=== PATIENT | female | born 1955 | race Caucasian/White ===

== ENCOUNTER 2017-02-04 11:20 | Emergency (ER) | payer MEDICARE, OTHER ==
--- NOTE | 2017-02-04 12:07 | ED ---
Abdominal Pain HPI - General Chief Complaint: Abdominal Pain Stated Complaint: Infection Time Seen by Provider: 02/04/17 11:24 Source: patient, EMS Mode of arrival: EMS Limitations: no limitations - History of Present Illness Initial Comments: The patient was sent in by Dr. Vincent patient had abdominal surgery at [address] [place] [address] Snider advised me to send the patient back to [place] she has some tenderness in home mom staff noticed some GI secretions coming out of her food back. Patient herself has no complaints at all no fever no chills no abdominal pain no headaches no neck stiffness no shortness of breath no diarrhea constipation frequency urgency dysuria no TIA or CVA like symptoms - Related Data Home Medications Medication Instructions Recorded Confirmed ALPRAZolam [Xanax] 0.25 mg PO Q8H PRN 02/04/17 02/04/17 Acetylcysteine Solution 20% 3 ml INHALATION RT-BID 02/04/17 02/04/17 Amitriptyline HCl [Elavil] 10 mg PO HS 02/04/17 02/04/17 Apixaban [Eliquis] 5 mg PO BID 02/04/17 02/04/17 Aquoral Aerosol Solution 1 spray MUCOUS MEM QID 02/04/17 02/04/17 Atorvastatin [Lipitor] 10 mg PO HS 02/04/17 02/04/17 Escitalopram [Lexapro] 20 mg PO DAILY 02/04/17 02/04/17 Furosemide [Lasix] 20 mg PO BID 02/04/17 02/04/17 House Antifungal Powder 1 applic TOPICAL BID 02/04/17 02/04/17 Insulin Regular [HumuLIN R] See Protocol SQ Q6H 02/04/17 02/04/17 Ipratropium-Albuterol Nebulize 3 ml INHALATION RT-DAILY PRN 02/04/17 02/04/17 [Duoneb 0.5 mg-3 mg/3 ml Soln] Ipratropium-Albuterol Nebulize 3 ml INHALATION RT-QID 02/04/17 02/04/17 [Duoneb 0.5 mg-3 mg/3 ml Soln] Levothyroxine Sodium [Synthroid] 88 mcg PO DAILY 02/04/17 02/04/17 Maxorb Extra Ag+Pad 1 applic TOPICAL DIRECTED 02/04/17 02/04/17 Melatonin 6 mg PO HS 02/04/17 02/04/17 Methocarbamol [Robaxin-750] 750 mg PO TID 02/04/17 02/04/17 Metoclopramide [Reglan] 5 mg PO Q6H PRN 02/04/17 02/04/17 Metoprolol Tartrate [Lopressor] 75 mg PO BID 02/04/17 02/04/17 Nystatin 100,000 Unit/ml Susp 5 ml PO TID 02/04/17 02/04/17 [Mycostatin Oral Susp] Oxybutynin Chloride [Ditropan XL] 5 mg PO DAILY 02/04/17 02/04/17 Torsemide 10 mg PO DAILY 02/04/17 02/04/17 Triamcinolone 0.1% Cream [Kenalog] 1 applicatio TOPICAL BID 02/04/17 02/04/17 oxyCODONE-APAP 5-325MG [Percocet 1 tab PO Q6HR PRN 02/04/17 02/04/17 5-325 mg] Allergies Allergy/AdvReac Type Severity Reaction Status Date / Time No Known Allergies Allergy Unverified 02/04/17 11:22 Review of Systems ROS Statement: Those systems with pertinent positive or pertinent negative responses have been documented in the HPI. ROS Other: All systems not noted in ROS Statement are negative. Past Medical History Past Medical History: Atrial Fibrillation, Coronary Artery Disease (CAD), Chest Pain / Angina, Heart Failure, Diabetes Mellitus, Deep Vein Thrombosis (DVT), Hypertension, Osteoarthritis (OA), Respiratory Disorder, Skin Disorder, Sleep Apnea/CPAP/BIPAP, Thyroid Disorder, Vascular Disorder Additional Past Medical History / Comment(s): cellulitus, strangulated ventral hernia with necrotic transverse colon and necrotic omentum 12/2016, ileostomy History of Any Multi-Drug Resistant Organisms: None Reported Past Surgical History: Cholecystectomy, Hernia Repair, Tonsillectomy Additional Past Surgical History / Comment(s): thyroiectomy, bowel surgery 01/14 , Past Psychological History: Anxiety, Depression Smoking Status: Never smoker Past Alcohol Use History: None Reported Past Drug Use History: None Reported General Exam - General Exam Comments Initial Comments: General: The patient is awake and alert, in no distress, and does not appear acutely ill. She looks pale and tired Skin: Skin is warm and dry and no rashes or lesions are noted. Notice a class. The right upper quadrant area and noticed a wound VAC on the left upper quadrant area with remove the packing and noticed some GI secretions from the wound VAC its greenish in color abdomen is soft nontender bowel sounds are positive no guarding no rebounds Eye: Pupils are equal, round and reactive to light, extra-ocular movements are intact; there is normal conjunctiva bilaterally. Ears, nose, mouth and throat: There are moist mucous membranes and no oral lesions. Neck: The neck is supple, there is no tenderness or JVD. Cardiovascular: There is a regular rate and rhythm. No murmur, rub or gallop is appreciated. Respiratory: To auscultation bilateral, no wheezing no rhonchi no distress respiratory bañuelos noticed Gastrointestinal: Is a large wound of the left side of the abdomen, after the packing was removed and noticed some stool coming out of the fluid most probably secondary to a fistula on the right upper quadrant she has a colostomy bag there are some contents in their bowel sounds are positive no guarding no rebounds Back: There is no tenderness to palpation in the midline. There is no obvious deformity. Musculoskeletal: Normal ROM, no tenderness, There is no pedal edema. There is no calf tenderness or swelling. No cords were appreciated. Neurological: CN II-XII intact, Cranial nerves III through XII are intact. There are no obvious motor or sensory deficits. Coordination appears grossly intact. Speech is normal. Psychiatric: Cooperative, seems a bit depressed. Limitations: no limitations Course Vital Signs 02/04/17 02/04/17 02/04/17 11:22 13:32 13:58 Temperature 96.7 F L 97.5 F L Pulse Rate 60 99 100 Respiratory 14 18 18 Rate Blood Pressure 114/76 106/59 99/58 O2 Sat by Pulse 98 94 L 95 Oximetry Him EKG is atrial fibrillation she does have a history of a defibrillation and she is anticoagulated according to the history I interviewed review of this EKG showed atrial fibrillation medical rate is 91 QRS duration is 76, QT/QTc is 362/ 445. This EKG does not reveal any ST elevation or ST depression. My refrain from doing any CAT scan and spoke with the Dr. Malcolm ferreira was primary physician and as as advised by Dr. Powell to transfer patient to Dr. Malcolm Yee's service at the [facility], spoke with the Dr. Yee initially he advised me to discharge patient home and he will see as outpatient and I explained to Dr. Silverman that she is not fit to go home at all and then he advised to send patient is ER to ER transfer to [facility], I believe she needs to be seen by her surgeon and then the summer law clerk considering her so many comorbidities - Reevaluation(s) Reevaluation #2: 02/04/17 14:18 She'll be transfer to ER to ER as the as per direction of for Dr. Malcolm Yee waiting to her back from the ER physician from [facility] Medical Decision Making - Lab Data Result diagrams: 02/04/17 11:34 02/04/17 11:34 Lab Results 02/04/17 02/04/17 02/04/17 Range/Units 11:34 11:34 11:34 WBC 11.7 H (3.8-10.6) k/uL RBC 3.87 (3.80-5.40) m/uL Hgb 11.4 (11.4-16.0) gm/dL Hct 34.0 (34.0-46.0) % MCV 87.8 (80.0-100.0) fL MCH 29.5 (25.0-35.0) pg MCHC 33.6 (31.0-37.0) g/dL RDW 16.2 H (11.5-15.5) % Plt Count 245 (150-450) k/uL Neutrophils % 79 % Lymphocytes % 9 % Monocytes % 6 % Eosinophils % 2 % Basophils % 0 % Neutrophils # 9.2 H (1.3-7.7) k/uL Lymphocytes # 1.1 (1.0-4.8) k/uL Monocytes # 0.7 (0-1.0) k/uL Eosinophils # 0.2 (0-0.7) k/uL Basophils # 0.1 (0-0.2) k/uL Hypochromasia Slight Poikilocytosis Slight Anisocytosis Slight Sodium 129 L (137-145) mmol/L Potassium 4.9 (3.5-5.1) mmol/L Chloride 94 L (98-107) mmol/L Carbon Dioxide 20 L (22-30) mmol/L Anion Gap 15 mmol/L BUN 52 H (7-17) mg/dL Creatinine 0.85 (0.52-1.04) mg/dL Est GFR (MDRD) Af Amer >60 (>60 ml/min/1.73 sqM) Est GFR (MDRD) Non-Af >60 (>60 ml/min/1.73 sqM) Glucose 320 H (74-99) mg/dL Plasma Lactic Acid Ronnie 1.2 (0.7-2.0) mmol/L Calcium 9.1 (8.4-10.2) mg/dL Total Bilirubin 0.9 (0.2-1.3) mg/dL AST 60 H (14-36) U/L ALT 88 H (9-52) U/L Alkaline Phosphatase 156 H (38-126) U/L Total Protein 7.1 (6.3-8.2) g/dL Albumin 3.0 L (3.5-5.0) g/dL Amylase 59 (30-110) U/L Lipase 285 (23-300) U/L Disposition Clinical Impression: Sepsis, Fistula, Hypotension Disposition: OTHER INSTITUTION NOT DEFINED Condition: Fair - Out of Hospital Transfer - Req. Specs Out of Hospital Transfer - Requested Specifics: Other Emergency Center ([facility] ER)
[2017-02-04] MEDS ORDERED: SODIUM CHLORIDE 0.9% 1,000 ML IV ONE (12:23)
[2017-02-04 13:09] LABS: Anisocytosis Slight; Basophils # (A) 0.1 k/uL (0-0.2); Basophils % (A) 0 %; CH 28.8; Eosinophils # (A) 0.2 k/uL (0-0.7); Eosinophils % (A) 2 %; HGB 11.4 gm/dL (11.4-16.0); Hypochromasia Slight; Luc # (Auto) 0.44; Luc % (Auto) 4; Lymphocytes # (A) 1.1 k/uL (1.0-4.8); Lymphocytes % (A) 9 %; MCH 29.5 pg (25.0-35.0); MCHC 33.6 g/dL (31.0-37.0); MCV 87.8 fL (80.0-100.0); Monocytes # (A) 0.7 k/uL (0-1.0); Monocytes % (A) 6 %; Neutrophils # (A) 9.2 k/uL (1.3-7.7); Neutrophils % (A) 79 %; Poikilocytosis Slight; RBC 3.87 m/uL (3.80-5.40); RDW 16.2 % (11.5-15.5); WBC 11.7 k/uL (3.8-10.6); WBC (Perox) 12.03
[2017-02-04] MEDS ORDERED: HYDROmorphone 1 MG/ML 1 ML SYRINGE IVP STA (13:18)
[2017-02-04 13:19] LABS: Amylase 59 U/L (30-110); Anion Gap 15 mmol/L; Calcium 9.1 mg/dL (8.4-10.2); Carbon Dioxide 20 mmol/L (22-30); Chloride 94 mmol/L (98-107); Glucose 320 mg/dL (74-99); Non-African American GFR(MDRD) >60 (>60 ml/min/1.73 sqM); Sodium 129 mmol/L (137-145); Total Bilirubin 0.9 mg/dL (0.2-1.3); Total Protein 7.1 g/dL (6.3-8.2)
[2017-02-04 13:21] LABS: Blood Urea Nitrogen 52 mg/dL (7-17); Potassium 4.9 mmol/L (3.5-5.1)
[2017-02-04 13:22] LABS: ALT 88 U/L (9-52); AST 60 U/L (14-36); Alkaline Phosphatase 156 U/L (38-126)
--- NOTE | 2017-02-04 13:27 | XR ---
EXAMINATION TYPE: XR KUB DATE OF EXAM: 02/04/2017 1:23 PM COMPARISON: NONE HISTORY: Pain TECHNIQUE: One view abdominal series FINDINGS: The osseous structures are intact. The bowel gas pattern is nonspecific. Surgical clips are seen inv olving the right upper quadrant. Upper abdomen near the diaphragm not included on the exam. Exam tech nically limited. Degenerative change lower lumbar spine and arthropathy of the hips noted with findings suggestive of femoral acetabular impingement. IMPRESSION: 1. Nonspecific abdomen. Exam technically limited correlate with CT scan as clinically warranted. The re is a paucity of bowel gas which can be seen with ileus or enteritis. Obstructive pattern not exclu ded.
--- NOTE | 2017-02-04 13:50 | XR ---
EXAMINATION TYPE: XR chest 1V portable DATE OF EXAM: 02/04/2017 1:46 PM COMPARISON: NONE HISTORY: Shortness of breath FINDINGS: There are bilateral pleural effusions with cardiomegaly and bibasilar infiltrate. There is a diffuse interstitial pattern. Right-sided PICC line seen with the tip overlying the right atrium. IMPRESSION: 1. Diffuse interstitial pattern with tiny bilateral effusion. Correlate for CHF. Interstitial pneumon itis also in the differential.
[2017-02-04] MEDS ORDERED: SODIUM CHLORIDE 0.9% 500 ML IV ONE (13:59)
[2017-02-04] MEDS ORDERED: INSULIN REGULAR 100 UNIT/ML VIAL SQ ONE (14:08)
[2017-02-04] MEDS ORDERED: FUROSEMIDE 10 MG/ML 4 ML VIAL IV STA (14:08)
[2017-02-04] MEDS ORDERED: PIPERACILLIN-TAZOBACTAM 3.375 GM in DEXTROSE/WATER 1 50ML.BAG IVPB STA (14:15)
[2017-02-04 14:28] VITALS: RESP 20
[2017-02-04 14:44] VITALS: BP 114/68; PULSE 95
[2017-02-04 15:16] VITALS: TEMP 97.8
== END 2017-02-04 15:10 | disposition other institution (70) ==
LOC: EC 11:20
DX: A41.9 Sepsis, unspecified organism (principal); L98.8 Other specified disorders of the skin and subcutaneous tissue; I95.9 Hypotension, unspecified; E11.9 Type 2 diabetes mellitus without complications; I11.0 Hypertensive heart disease with heart failure; I50.9 Heart failure, unspecified; M19.90 Unspecified osteoarthritis, unspecified site; I25.10 Atherosclerotic heart disease of native coronary artery without angina pectoris; F32.9 Major depressive disorder, single episode, unspecified; E07.9 Disorder of thyroid, unspecified; F41.9 Anxiety disorder, unspecified; Z86.718 Personal history of other venous thrombosis and embolism; Z98.890 Other specified postprocedural states; Z79.01 Long term (current) use of anticoagulants; Z79.4 Long term (current) use of insulin; Z79.899 Other long term (current) drug therapy
CPT/HCPCS: 99285 ×2; 96365 ×2; 96375 ×3; 96361 ×2; 36415; 93005; 80053; 82150; 83605; 83690; 85025; 71010; 74000; J1940; J1170; J2543

== ENCOUNTER 2017-02-22 10:59 | Emergency (ER) | payer MEDICARE, OTHER ==
[2017-02-22] MEDS ORDERED: SODIUM CHLORIDE 0.9% 1,000 ML IV STA (11:19)
--- NOTE | 2017-02-22 11:21 | ED ---
General Adult HPI - General Chief complaint: Skin/Abscess/Foreign Body Stated complaint: Colostomy Time Seen by Provider: 02/22/17 11:05 Source: EMS, RN notes reviewed, old records reviewed Mode of arrival: EMS - History of Present Illness Initial comments: This is a 61-year-old female here for evaluation per patient coming in for increased stability weakness and elevated heart rate. Patient has complex medical history multiple surgeries is no longer a surgical candidate. Patient does have ostomy which is draining. No fevers, patient otherwise states she feels okay. - Related Data Home Medications Medication Instructions Recorded Confirmed Amitriptyline HCl [Elavil] 10 mg PO HS 02/04/17 02/22/17 Apixaban [Eliquis] 5 mg PO BID 02/04/17 02/22/17 Atorvastatin [Lipitor] 10 mg PO HS 02/04/17 02/22/17 Escitalopram [Lexapro] 20 mg PO HS 02/04/17 02/22/17 Triamcinolone 0.1% Cream [Kenalog] 1 applicatio TOPICAL BID 02/04/17 02/22/17 Acetaminophen Tab [Tylenol Tab] 650 mg PO Q6H PRN 02/22/17 02/22/17 Insulin Aspart [NovoLOG Flexpen] See Protocol SQ ACHS 02/22/17 02/22/17 Insulin Glargine,Hum.rec.anlog 15 unit SQ DAILY 02/22/17 02/22/17 [Lantus Solostar] Levalbuterol HCl [Xopenex] 1.25 mg INHALATION RT-QID PRN 02/22/17 02/22/17 Loperamide [Imodium] 2 mg PO BID 02/22/17 02/22/17 Magnesium Oxide 400 mg PO BID 02/22/17 02/22/17 Melatonin 10 mg PO HS 02/22/17 02/22/17 Methyl Salicylate/Menthol 1 patch TOPICAL DAILY 02/22/17 02/22/17 [Salonpas Patch] Metoprolol Tartrate [Lopressor] 50 mg PO BID 02/22/17 02/22/17 Nystatin 100,000 Unit/gm Powd 1 applic TOPICAL BID 02/22/17 02/22/17 [Mycostatin Powder] Omeprazole 40 mg PO BID 02/22/17 02/22/17 Potassium Chloride [Klor-Con 20] 20 meq PO DAILY 02/22/17 02/22/17 Prochlorperazine [Compazine] 5 mg PO Q6H PRN 02/22/17 02/22/17 Prostat Liquid 30 ml PO BID 02/22/17 02/22/17 traMADol HCL [Ultram] 50 mg PO Q4HR PRN 02/22/17 02/22/17 Allergies Allergy/AdvReac Type Severity Reaction Status Date / Time No Known Allergies Allergy Verified 02/22/17 11:43 Review of Systems ROS Statement: Those systems with pertinent positive or pertinent negative responses have been documented in the HPI. ROS Other: All systems not noted in ROS Statement are negative. Past Medical History Past Medical History: Atrial Fibrillation, Coronary Artery Disease (CAD), Chest Pain / Angina, Heart Failure, Diabetes Mellitus, Deep Vein Thrombosis (DVT), Hypertension, Osteoarthritis (OA), Respiratory Disorder, Skin Disorder, Sleep Apnea/CPAP/BIPAP, Thyroid Disorder, Vascular Disorder Additional Past Medical History / Comment(s): cellulitus, strangulated ventral hernia with necrotic transverse colon and necrotic omentum 12/2016, ileostomy History of Any Multi-Drug Resistant Organisms: None Reported Past Surgical History: Cholecystectomy, Hernia Repair, Tonsillectomy Additional Past Surgical History / Comment(s): thyroiectomy, bowel surgery 01/14 , Past Psychological History: Anxiety, Depression Smoking Status: Never smoker Past Alcohol Use History: None Reported Past Drug Use History: None Reported General Exam General appearance: alert, in no apparent distress Head exam: Present: atraumatic, normocephalic, normal inspection Eye exam: Present: normal appearance, PERRL, EOMI. Absent: scleral icterus, conjunctival injection, periorbital swelling ENT exam: Present: normal exam, mucous membranes moist Neck exam: Present: normal inspection. Absent: tenderness, meningismus, lymphadenopathy Respiratory exam: Present: normal lung sounds bilaterally. Absent: respiratory distress, wheezes, rales, rhonchi, stridor Cardiovascular Exam: Present: regular rate, normal rhythm, normal heart sounds. Absent: systolic murmur, diastolic murmur, rubs, gallop, clicks GI/Abdominal exam: Present: soft, normal bowel sounds. Absent: distended, tenderness, guarding, rebound, rigid Extremities exam: Present: normal inspection, full ROM, normal capillary refill. Absent: tenderness, pedal edema, joint swelling, calf tenderness Back exam: Present: normal inspection Neurological exam: Present: alert, oriented X3, CN II-XII intact Psychiatric exam: Present: normal affect, normal mood Skin exam: Present: warm, dry, intact, normal color. Absent: rash Course Vital Signs 02/22/17 02/22/17 11:05 12:47 Temperature 98.8 F 97.8 F Pulse Rate 114 H 105 H Respiratory 18 18 Rate Blood Pressure 143/80 106/67 O2 Sat by Pulse 100 99 Oximetry - Reevaluation(s) Reevaluation #1: 02/22/17 13:[address] Boyd and then Dr. Powell regarding patient, they will transfer patient from [address] [place] [address] under her surgeon Reevaluation #2: 02/22/17 13:55 [facility] EKG Findings - EKG Comments: EKG Findings:: EKG shows A. fib with RVR rate 106, QRS 66, QTC 387 Medical Decision Making - Medical Decision Making 61 female here for evaluation. Patient's. Patient with no longer working ostomy, patient does have urinary tract infection started on antibiotics we'll transfer to [facility] for patient's evaluation and treatment - Lab Data Result diagrams: 02/22/17 11:23 02/22/17 11:23 Lab Results 02/22/17 02/22/17 02/22/17 Range/Units 11:23 11:23 11:23 WBC 8.1 (3.8-10.6) k/uL RBC 4.02 (3.80-5.40) m/uL Hgb 11.7 (11.4-16.0) gm/dL Hct 35.9 (34.0-46.0) % MCV 89.2 (80.0-100.0) fL MCH 29.0 (25.0-35.0) pg MCHC 32.5 (31.0-37.0) g/dL RDW 16.6 H (11.5-15.5) % Plt Count 365 (150-450) k/uL Neutrophils % 77 % Lymphocytes % 12 % Monocytes % 5 % Eosinophils % 3 % Basophils % 0 % Neutrophils # 6.3 (1.3-7.7) k/uL Lymphocytes # 1.0 (1.0-4.8) k/uL Monocytes # 0.4 (0-1.0) k/uL Eosinophils # 0.3 (0-0.7) k/uL Basophils # 0.0 (0-0.2) k/uL Hypochromasia Slight Poikilocytosis Slight Anisocytosis Slight PT (9.0-12.0) sec INR (<1.1) APTT (22.0-30.0) sec Sodium 136 L (137-145) mmol/L Potassium 4.7 (3.5-5.1) mmol/L Chloride 106 (98-107) mmol/L Carbon Dioxide 23 (22-30) mmol/L Anion Gap 7 mmol/L BUN 30 H (7-17) mg/dL Creatinine 1.34 H (0.52-1.04) mg/dL Est GFR (MDRD) Af Amer 49 (>60 ml/min/1.73 sqM) Est GFR (MDRD) Non-Af 40 (>60 ml/min/1.73 sqM) Glucose 165 H (74-99) mg/dL Calcium 8.9 (8.4-10.2) mg/dL Phosphorus 4.3 (2.5-4.5) mg/dL Magnesium 1.4 L (1.6-2.3) mg/dL Total Bilirubin 0.5 (0.2-1.3) mg/dL AST 56 H (14-36) U/L ALT 51 (9-52) U/L Alkaline Phosphatase 90 (38-126) U/L Total Creatine Kinase 137 H (30-135) U/L CK-MB (CK-2) 2.2 (0.0-2.4) ng/mL CK-MB (CK-2) Rel Index 1.6 Troponin I <0.012 (0.000-0.034) ng/mL Total Protein 6.5 (6.3-8.2) g/dL Albumin 2.9 L (3.5-5.0) g/dL Urine Color Urine Appearance (Clear) Urine pH (5.0-8.0) Ur Specific [place] (1.001-1.035) Urine Protein (Negative) Urine Glucose (UA) (Negative) Urine Ketones (Negative) Urine Blood (Negative) Urine Nitrite (Negative) Urine Bilirubin (Negative) Urine Urobilinogen (<2.0) mg/dL Ur Leukocyte Esterase (Negative) Urine RBC (0-5) /hpf Urine WBC (0-5) /hpf Urine WBC Clumps (None) /hpf Ur Squamous Epith Cells (0-4) /hpf Urine Mucus (None) /hpf 02/22/17 02/22/17 Range/Units 11:23 11:28 WBC (3.8-10.6) k/uL RBC (3.80-5.40) m/uL Hgb (11.4-16.0) gm/dL Hct (34.0-46.0) % MCV (80.0-100.0) fL MCH (25.0-35.0) pg MCHC (31.0-37.0) g/dL RDW (11.5-15.5) % Plt Count (150-450) k/uL Neutrophils % % Lymphocytes % % Monocytes % % Eosinophils % % Basophils % % Neutrophils # (1.3-7.7) k/uL Lymphocytes # (1.0-4.8) k/uL Monocytes # (0-1.0) k/uL Eosinophils # (0-0.7) k/uL Basophils # (0-0.2) k/uL Hypochromasia Poikilocytosis Anisocytosis PT 10.9 (9.0-12.0) sec INR 1.1 (<1.1) APTT 24.9 (22.0-30.0) sec Sodium (137-145) mmol/L Potassium (3.5-5.1) mmol/L Chloride (98-107) mmol/L Carbon Dioxide (22-30) mmol/L Anion Gap mmol/L BUN (7-17) mg/dL Creatinine (0.52-1.04) mg/dL Est GFR (MDRD) Af Amer (>60 ml/min/1.73 sqM) Est GFR (MDRD) Non-Af (>60 ml/min/1.73 sqM) Glucose (74-99) mg/dL Calcium (8.4-10.2) mg/dL Phosphorus (2.5-4.5) mg/dL Magnesium (1.6-2.3) mg/dL Total Bilirubin (0.2-1.3) mg/dL AST (14-36) U/L ALT (9-52) U/L Alkaline Phosphatase (38-126) U/L Total Creatine Kinase (30-135) U/L CK-MB (CK-2) (0.0-2.4) ng/mL CK-MB (CK-2) Rel Index Troponin I (0.000-0.034) ng/mL Total Protein (6.3-8.2) g/dL Albumin (3.5-5.0) g/dL Urine Color Yellow Urine Appearance Turbid H (Clear) Urine pH 6.0 (5.0-8.0) Ur Specific [place] 1.016 (1.001-1.035) Urine Protein 1+ H (Negative) Urine Glucose (UA) Negative (Negative) Urine Ketones Negative (Negative) Urine Blood Small H (Negative) Urine Nitrite Negative (Negative) Urine Bilirubin Negative (Negative) Urine Urobilinogen <2.0 (<2.0) mg/dL Ur Leukocyte Esterase Large H (Negative) Urine RBC 104 H (0-5) /hpf Urine WBC >182 H (0-5) /hpf Urine WBC Clumps Many H (None) /hpf Ur Squamous Epith Cells 3 (0-4) /hpf Urine Mucus Moderate H (None) /hpf - Radiology Data Radiology results: report reviewed, image reviewed Disposition Clinical Impression: Fistula, Sepsis, Complication of ostomy, Atrial fibrillation with RVR, UTI ( urinary tract infection) Disposition: OTHER INSTITUTION NOT DEFINED Condition: Fair Referrals: Angela Powell MD [Primary Care Provider] - 1-2 days - Out of Hospital Transfer - Req. Specs Out of Hospital Transfer - Requested Specifics: Other Emergency Center ([facility])
[2017-02-22 11:47] LABS: Anisocytosis Slight; Basophils % (A) 0 %; CH 29.1; CHCM 32.9; Eosinophils # (A) 0.3 k/uL (0-0.7); Eosinophils % (A) 3 %; HCT 35.9 % (34.0-46.0); HDW 3.56; HGB 11.7 gm/dL (11.4-16.0); Hypochromasia Slight; Luc # (Auto) 0.13; Luc % (Auto) 2; Lymphocytes % (A) 12 %; MCHC 32.5 g/dL (31.0-37.0); MCV 89.2 fL (80.0-100.0); Mean Platelet Volume 6.6; Monocytes # (A) 0.4 k/uL (0-1.0); Monocytes % (A) 5 %; Neutrophils # (A) 6.3 k/uL (1.3-7.7); Neutrophils % (A) 77 %; Poikilocytosis Slight; RBC 4.02 m/uL (3.80-5.40); RDW 16.6 % (11.5-15.5); WBC 8.1 k/uL (3.8-10.6); WBC (Perox) 8.46
[2017-02-22 11:57] LABS: Appearance,Urine Turbid (Clear); Bilirubin,Urine Negative (Negative); Glucose,Urine (UA) Negative (Negative); Ketones,Urine Negative (Negative); Leukocyte Esterase,Urine Large (Negative); Mucus,Urine Moderate /hpf; Nitrite,Urine Negative (Negative); Particle Count 34188; Protein,Urine 1+ (Negative); RBC,Urine 104 /hpf (0-5); Specific Gravity,Urine 1.016 (1.001-1.035); Squamous Epithelial Cell,Urine 3 /hpf (0-4); UA Billing (MACRO vs. MICRO) MICRO; Urobilinogen,Urine <2.0 mg/dL (<2.0); WBC,Urine >182 /hpf (0-5)
[2017-02-22 11:58] LABS: Calcium 8.9 mg/dL (8.4-10.2); Magnesium 1.4 mg/dL (1.6-2.3); Phosphorous 4.3 mg/dL (2.5-4.5); Potassium 4.7 mmol/L (3.5-5.1); Total Bilirubin 0.5 mg/dL (0.2-1.3); Total Protein 6.5 g/dL (6.3-8.2)
[2017-02-22 12:01] LABS: INR 1.1 (<1.1); Partial Thromboplastin Time 24.9 sec (22.0-30.0); Prothrombin Time 10.9 sec (9.0-12.0)
[2017-02-22 12:07] LABS: Creatine Kinase 137 U/L (30-135)
--- NOTE | 2017-02-22 12:10 | XR ---
EXAMINATION TYPE: XR chest 2V DATE OF EXAM: 02/22/2017 12:05 PM COMPARISON: 02/04/2017 TECHNIQUE: PA and lateral views submitted. HISTORY: Weakness FINDINGS: Linear changes involving the left lung base and right perihilar region are stable most suggestive of atelectasis. No pneumothorax. Heart mildly prominent but stable. Limited inspiration limits exam There persists minimal blunting of the costophrenic angles which may be related to pleural thickening or tiny effusion or secondary to poor inspiration. IMPRESSION: 1. Stable linear changes bilaterally more typical of atelectasis than pneumonia. Correlate clinically . 2. Interstitial pattern previously noted centrally has resolved.
[2017-02-22 12:19] LABS: Creatine Kinase MB 2.2 ng/mL (0.0-2.4); Troponin I <0.012 ng/mL (0.000-0.034)
[2017-02-22] MEDS ORDERED: AMPICILLIN-SULBACTAM 3 GM in SODIUM CHLORIDE 0.9% 100 ML IVPB STA (13:02)
[2017-02-22 14:08] VITALS: BP 122/89; PULSE 101; RESP 14; TEMP 97.6
== END 2017-02-22 15:13 | disposition short-term general hospital (02) ==
LOC: EC 10:59
DX: A41.9 Sepsis, unspecified organism (principal); K94.02 Colostomy infection; I77.0 Arteriovenous fistula, acquired; I48.91 Unspecified atrial fibrillation; N39.0 Urinary tract infection, site not specified; E11.9 Type 2 diabetes mellitus without complications; I11.0 Hypertensive heart disease with heart failure; I50.9 Heart failure, unspecified; Z86.73 Personal history of transient ischemic attack (TIA), and cerebral infarction without residual deficits; Z79.4 Long term (current) use of insulin; Z79.01 Long term (current) use of anticoagulants; Z90.49 Acquired absence of other specified parts of digestive tract; Z79.899 Other long term (current) drug therapy
CPT/HCPCS: 99285; 96365; 36415; 93005; 80053; 82550; 82553; 83735; 84100; 84484; 85025; 85610; 85730; 81001; 87086; 71020; J0295

== ENCOUNTER → 2017-03-23 | Outpatient (CLI) | payer MEDICARE, OTHER ==
--- NOTE | 2017-03-23 14:43 | CT ---
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 TECHNIQUE: Helical acquisition through the abdomen and pelvis was obtained following the oral ingesti on of with Oral Contrast and following intravenous administration of 100 ml mL of Omnipaque 300. The data was reformatted in axial, coronal and sagittal projections. FINDINGS: There is minimal dependent atelectasis in the dependent portions of the lungs. There is no pleural or pericardial fluid. The heart is mildly enlarged. Within the abdomen, the liver and spleen are normal. The gallbladder has been removed. Both adrenal glands are normal. 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 There are otherwise normal. There is fatty infiltration of the pancreas. The pancreas is otherwise normal. There is no significant retroperitoneal, iliac or inguinal adenopathy. The uterus and ovaries appear normal. There is a Askew catheter within the bladder. There is no significant diverticular change and there is no radiographic evidence of diverticulitis. There is been resection of the right side of the colon and particularly transverse colon. There is inflammatory change in the anterior abdominal wall. There is evidence of an enterocutaneous fistula arising from a right paramedian approach best seen on image 53, 54 and 55. The overlying skin appears excoriated. No free fluid and no free air is seen. There is degenerative disc disease and mild hypertrophic spondylosis within the spine. IMPRESSION: 1. ENTEROCUTANEOUS FISTULA DEMONSTRATED DESCRIBED. 2. POSTSURGICAL CHANGE. 3. DEGENERATIVE CHANGES WITHIN THE SPINE.
== END | disposition home or self-care (01) ==
LOC: RADPROMAIN 11:05
PROVIDERS: ATTEND Family Medicine
DX: K63.2 Fistula of intestine (principal); Z98.890 Other specified postprocedural states
CPT/HCPCS: 74177; Q9967

== ENCOUNTER 2017-04-04 07:14 | Emergency (ER) | payer MEDICARE, OTHER ==
[2017-04-04] MEDS ORDERED: ACETAMINOPHEN TAB 500 MG TAB PO STA (07:39)
[2017-04-04] MEDS ORDERED: IBUPROFEN IV 600 MG in SODIUM CHLORIDE 0.9% 250 ML IV STA (07:39)
[2017-04-04] MEDS ORDERED: LEVOFLOXACIN 750MG-D5W PMX 750 MG in DEXTROSE/WATER 1 150ML.BAG IVPB STA (07:39)
--- NOTE | 2017-04-04 07:44 | ED ---
General Adult HPI - General Chief complaint: Fever Stated complaint: poss sepsis Time Seen by Provider: 04/04/17 07:30 Source: EMS, RN notes reviewed Mode of arrival: EMS Limitations: no limitations - History of Present Illness Initial comments: This is a 61-year-old female who presents emergency Department with a ostomy and an open wound in her abdomen secondary to a hernia surgery approximately 5- 6 weeks ago. Patient is brought into the emergency department because her heart was tachycardic and in A. fib. Patient also was sent in because she had a high fever. Patient denies any chest pain shortness of breath or difficulty breathing. Patient denies any cough. Patient denies abdominal pain though she has an open wound which is checked on a daily basis. Patient states she has had a little dry heaves over the last 2 days but nothing too significant according to her. Patient denies any diarrhea. Patient denies any other new lesions sores or redness. Patient denies headache patient denies numbness weakness. Patient states in general she feels pretty good. Has no specific complaint. - Related Data Home Medications Medication Instructions Recorded Confirmed Amitriptyline HCl [Elavil] 10 mg PO HS 02/04/17 04/04/17 Apixaban [Eliquis] 5 mg PO BID 02/04/17 04/04/17 Escitalopram [Lexapro] 20 mg PO DAILY 02/04/17 04/04/17 Acetaminophen Tab [Tylenol Tab] 650 mg PO Q2H PRN 02/22/17 04/04/17 Insulin Aspart [NovoLOG Flexpen] See Protocol SQ Q6H 02/22/17 04/04/17 Levalbuterol HCl [Xopenex] 1.25 mg INHALATION RT-Q4H PRN 02/22/17 04/04/17 Loperamide [Imodium] 2 mg PO BID 02/22/17 04/04/17 Metoprolol Tartrate [Lopressor] 75 mg PO Q8H 02/22/17 04/04/17 Omeprazole 40 mg PO BID@0600,1700 02/22/17 04/04/17 Potassium Chloride [Klor-Con 20] 20 meq PO DAILY 02/22/17 04/04/17 Prochlorperazine [Compazine] 5 mg PO Q6H PRN 02/22/17 04/04/17 Diflorasone Diacetate [Psorcon] 1 applic TOPICAL WE 04/04/17 04/04/17 Diltiazem HCl [Cardizem] 90 mg PO HS 04/04/17 04/04/17 Furosemide [Lasix] 40 mg PO DAILY@1300 04/04/17 04/04/17 Insulin Regular, Human [NovoLIN R] 31 units IV DIRECTED 04/04/17 04/04/17 Methyl Salicylate/Menthol 1 patch TOPICAL DAILY@0600 04/04/17 04/04/17 [Salonpas Patch] Metolazone [Zaroxolyn] 5 mg PO MOWEFR@0600 04/04/17 04/04/17 Tpn 2,251.2 ml IV DIRECTED 04/04/17 04/04/17 Venelex Ointment 1 applic TOPICAL Q12H 04/04/17 04/04/17 Allergies Allergy/AdvReac Type Severity Reaction Status Date / Time No Known Allergies Allergy Verified 04/04/17 07:42 Review of Systems ROS Statement: Those systems with pertinent positive or pertinent negative responses have been documented in the HPI. ROS Other: All systems not noted in ROS Statement are negative. Past Medical History Past Medical History: Atrial Fibrillation, Coronary Artery Disease (CAD), Chest Pain / Angina, Heart Failure, Diabetes Mellitus, Deep Vein Thrombosis (DVT), Hypertension, Osteoarthritis (OA), Respiratory Disorder, Skin Disorder, Sleep Apnea/CPAP/BIPAP, Thyroid Disorder, Vascular Disorder Additional Past Medical History / Comment(s): cellulitus, strangulated ventral hernia with necrotic transverse colon and necrotic omentum 12/2016, ileostomy History of Any Multi-Drug Resistant Organisms: None Reported Past Surgical History: Cholecystectomy, Hernia Repair, Tonsillectomy Additional Past Surgical History / Comment(s): thyroiectomy, bowel surgery 01/14 , Past Psychological History: Anxiety, Depression Smoking Status: Never smoker Past Alcohol Use History: None Reported Past Drug Use History: None Reported General Exam - General Exam Comments Initial Comments: GENERAL: Patient is well-developed and well-nourished. Patient is nontoxic and well- hydrated and is in no acute distress. ENT: Neck is soft and supple. No significant lymphadenopathy is noted. Oropharynx is clear. Moist mucous membranes. Neck has full range of motion without eliciting any pain. EYES: The sclera were anicteric and conjunctiva were pink and moist. Extraocular movements were intact and pupils were equal round and reactive to light. Eyelids were unremarkable. PULMONARY: Unlabored respirations. Good breath sounds bilaterally. No audible rales rhonchi or wheezing was noted. CARDIOVASCULAR: Patient is tachycardic at about 120 beats a minute and patient has an irregular rate and rhythm ABDOMEN: Patient has ostomy bag. On the left side of the abdomen patient has an open wound which does not show any signs of infection or cellulitis. No palpable organomegaly was noted. There is no palpable pulsatile mass. SKIN: Skin is clear with no lesions or rashes and otherwise unremarkable. NEUROLOGIC: Patient is alert and oriented x3. Cranial nerves II through XII are grossly intact. Motor and sensory are also intact. Normal speech, volume and content. Symmetrical smile. MUSCULOSKELETAL: Normal extremities with adequate strength and full range of motion. No lower extremity swelling or edema. No calf tenderness. PSYCHIATRIC: Normal psychiatric evaluation. Normal interpersonal interactions appears functionally intact in deals appropriately with others. No signs of depression. No signs of anxiety. Limitations: no limitations Course Vital Signs 04/04/17 04/04/17 04/04/17 07:26 07:33 07:48 Temperature 102.2 F H Pulse Rate 131 H 125 H 124 H Respiratory 28 H 18 Rate Blood Pressure 95/43 99/49 98/53 O2 Sat by Pulse 97 96 95 Oximetry 04/04/17 04/04/17 04/04/17 08:01 08:18 08:33 Temperature Pulse Rate 130 H 127 H 120 H Respiratory Rate Blood Pressure 90/53 97/54 88/49 O2 Sat by Pulse 95 96 Oximetry 04/04/17 04/04/17 04/04/17 09:03 10:03 10:10 Temperature 98.3 F Pulse Rate 118 H 108 H Respiratory Rate Blood Pressure 115/51 102/48 O2 Sat by Pulse 96 97 Oximetry 04/04/17 04/04/17 11:03 11:18 Temperature Pulse Rate 102 H 100 Respiratory Rate Blood Pressure 87/51 92/54 O2 Sat by Pulse 97 96 Oximetry Medical Decision Making - Medical Decision Making EKG shows atrial fibrillation with rapid ventricular response at 121 bpm QRS is 66 QT interval 310 QTC is 440. Patient's EKG shows no ST segment elevation or depression or T wave abnormalities are noted Chest x-ray shows no acute abnormality I started the patient with 1 L of fluid her blood pressure came up to 115 systolic and she remained asymptomatic. I spoke with Dr. Boyd I started the patient on Levaquin I admitted the patient I wrote admitting orders. After patient was admitted Dr. oByd at scene the patient she then requested to go to [facility] I spoke with Dr. Cormier at [facility] in [place] and he accepted the patient - Lab Data Result diagrams: 04/04/17 07:34 04/04/17 07:34 Lab Results 04/04/17 04/04/17 04/04/17 Range/Units 07:34 07:34 07:34 WBC 7.3 (3.8-10.6) k/uL RBC 3.73 L (3.80-5.40) m/uL Hgb 11.4 (11.4-16.0) gm/dL Hct 32.1 L (34.0-46.0) % MCV 85.9 (80.0-100.0) fL MCH 30.6 (25.0-35.0) pg MCHC 35.7 (31.0-37.0) g/dL RDW 15.6 H (11.5-15.5) % Plt Count 101 L D (150-450) k/uL Neutrophils % 83 % Lymphocytes % 5 % Monocytes % 8 % Eosinophils % 1 % Basophils % 0 % Neutrophils # 6.1 (1.3-7.7) k/uL Lymphocytes # 0.4 L (1.0-4.8) k/uL Monocytes # 0.6 (0-1.0) k/uL Eosinophils # 0.1 (0-0.7) k/uL Basophils # 0.0 (0-0.2) k/uL PT (9.0-12.0) sec INR (<1.1) APTT (22.0-30.0) sec Sodium 128 L (137-145) mmol/L Potassium 4.5 (3.5-5.1) mmol/L Chloride 95 L (98-107) mmol/L Carbon Dioxide 23 (22-30) mmol/L Anion Gap 10 mmol/L BUN 52 H (7-17) mg/dL Creatinine 1.10 H (0.52-1.04) mg/dL Est GFR (MDRD) Af Amer >60 (>60 ml/min/1.73 sqM) Est GFR (MDRD) Non-Af 50 (>60 ml/min/1.73 sqM) Glucose 218 H (74-99) mg/dL Plasma Lactic Acid Ronnie (0.7-2.0) mmol/L Calcium 8.8 (8.4-10.2) mg/dL Total Bilirubin 1.5 H (0.2-1.3) mg/dL AST 38 H (14-36) U/L ALT 41 (9-52) U/L Alkaline Phosphatase 108 (38-126) U/L Total Protein 6.0 L (6.3-8.2) g/dL Albumin 2.8 L (3.5-5.0) g/dL Urine Color Urine Appearance (Clear) Urine pH (5.0-8.0) Ur Specific [place] (1.001-1.035) Urine Protein (Negative) Urine Glucose (UA) (Negative) Urine Ketones (Negative) Urine Blood (Negative) Urine Nitrite (Negative) Urine Bilirubin (Negative) Urine Urobilinogen (<2.0) mg/dL Ur Leukocyte Esterase (Negative) Urine WBC (0-5) /hpf Amorphous Sediment (None) /hpf Urine Bacteria (None) /hpf Urine Mucus (None) /hpf Influenza Type A RNA Not Detected (Not Detectd) Influenza Type B (PCR) Not Detected (Not Detectd) 04/04/17 04/04/17 04/04/17 Range/Units 07:34 07:34 07:48 WBC (3.8-10.6) k/uL RBC (3.80-5.40) m/uL Hgb (11.4-16.0) gm/dL Hct (34.0-46.0) % MCV (80.0-100.0) fL MCH (25.0-35.0) pg MCHC (31.0-37.0) g/dL RDW (11.5-15.5) % Plt Count (150-450) k/uL Neutrophils % % Lymphocytes % % Monocytes % % Eosinophils % % Basophils % % Neutrophils # (1.3-7.7) k/uL Lymphocytes # (1.0-4.8) k/uL Monocytes # (0-1.0) k/uL Eosinophils # (0-0.7) k/uL Basophils # (0-0.2) k/uL PT 11.9 (9.0-12.0) sec INR 1.2 (<1.1) APTT 27.9 (22.0-30.0) sec Sodium (137-145) mmol/L Potassium (3.5-5.1) mmol/L Chloride (98-107) mmol/L Carbon Dioxide (22-30) mmol/L Anion Gap mmol/L BUN (7-17) mg/dL Creatinine (0.52-1.04) mg/dL Est GFR (MDRD) Af Amer (>60 ml/min/1.73 sqM) Est GFR (MDRD) Non-Af (>60 ml/min/1.73 sqM) Glucose (74-99) mg/dL Plasma Lactic Acid Ronnie 1.7 (0.7-2.0) mmol/L Calcium (8.4-10.2) mg/dL Total Bilirubin (0.2-1.3) mg/dL AST (14-36) U/L ALT (9-52) U/L Alkaline Phosphatase (38-126) U/L Total Protein (6.3-8.2) g/dL Albumin (3.5-5.0) g/dL Urine Color Yellow Urine Appearance Turbid H (Clear) Urine pH 8.5 H (5.0-8.0) Ur Specific [place] 1.018 (1.001-1.035) Urine Protein 4+ H (Negative) Urine Glucose (UA) Negative (Negative) Urine Ketones Negative (Negative) Urine Blood Negative (Negative) Urine Nitrite Positive H (Negative) Urine Bilirubin 1+ H (Negative) Urine Urobilinogen <2.0 (<2.0) mg/dL Ur Leukocyte Esterase Large H (Negative) Urine WBC 6 H (0-5) /hpf Amorphous Sediment Rare H (None) /hpf Urine Bacteria Many H (None) /hpf Urine Mucus Many H (None) /hpf Influenza Type A RNA (Not Detectd) Influenza Type B (PCR) (Not Detectd) Critical Care Time Critical Care Time: Yes Total Critical Care Time: 35 Disposition Clinical Impression: Urinary tract infection, Sepsis Disposition: TRANSFER TO PSYCH HOSP/UNIT Referrals: Angela Powell MD [Primary Care Provider] - 1-2 days Time of Disposition: 09:36 - Out of Hospital Transfer - Req. Specs Out of Hospital Transfer - Requested Specifics: Other Emergency Center ([facility])
[2017-04-04] MEDS: SODIUM CHLORIDE 0.9% 500 ML IV SCH ×2 (07:57→10:07)
[2017-04-04 08:01] VITALS: RESP 18
[2017-04-04 08:17] LABS: Amorphous Sediment,Urine Rare /hpf; Appearance,Urine Turbid (Clear); Bacteria,Urine Many /hpf; Bilirubin,Urine 1+ (Negative); Glucose,Urine (UA) Negative (Negative); Ketones,Urine Negative (Negative); Leukocyte Esterase,Urine Large (Negative); Mucus,Urine Many /hpf; Nitrite,Urine Positive (Negative); PH, Urine 8.5 (5.0-8.0); Particle Count 526176; Protein,Urine 4+ (Negative); Specific Gravity,Urine 1.018 (1.001-1.035); UA Billing (MACRO vs. MICRO) MICRO; Urobilinogen,Urine <2.0 mg/dL (<2.0); WBC,Urine 6 /hpf (0-5)
--- NOTE | 2017-04-04 08:30 | XR ---
EXAMINATION TYPE: XR chest 1V portable DATE OF EXAM: 04/04/2017 HISTORY: Fever. REFERENCE: Previous study dated 02/22/2017. FINDINGS: The heart is mildly enlarged. There is some linear scarring in the right lung. The lungs ar e otherwise clear. There is some peribronchial cuffing. Pleural spaces are clear. IMPRESSION: 1. MILD CARDIOMEGALY. 2. MINIMAL SCARRING, RIGHT MIDLUNG.
[2017-04-04 08:40] LABS: INR 1.2 (<1.1); Partial Thromboplastin Time 27.9 sec (22.0-30.0); Prothrombin Time 11.9 sec (9.0-12.0)
[2017-04-04 08:47] LABS: ALT 41 U/L (9-52); AST 38 U/L (14-36); Alkaline Phosphatase 108 U/L (38-126); Anion Gap 10 mmol/L; Blood Urea Nitrogen 52 mg/dL (7-17); Calcium 8.8 mg/dL (8.4-10.2); Carbon Dioxide 23 mmol/L (22-30); Chloride 95 mmol/L (98-107); Glucose 218 mg/dL (74-99); Non-African American GFR(MDRD) 50 (>60 ml/min/1.73 sqM); Potassium 4.5 mmol/L (3.5-5.1); Sodium 128 mmol/L (137-145); Total Bilirubin 1.5 mg/dL (0.2-1.3)
[2017-04-04 08:49] LABS: Basophils % (A) 0 %; CH 29.4; CHCM 34.4; Eosinophils # (A) 0.1 k/uL (0-0.7); Eosinophils % (A) 1 %; HCT 32.1 % (34.0-46.0); HDW 3.14; HGB 11.4 gm/dL (11.4-16.0); Luc # (Auto) 0.18; Luc % (Auto) 3; Lymphocytes # (A) 0.4 k/uL (1.0-4.8); Lymphocytes % (A) 5 %; MCH 30.6 pg (25.0-35.0); MCHC 35.7 g/dL (31.0-37.0); MCV 85.9 fL (80.0-100.0); Mean Platelet Volume 9.1; Monocytes # (A) 0.6 k/uL (0-1.0); Monocytes % (A) 8 %; Neutrophils # (A) 6.1 k/uL (1.3-7.7); Neutrophils % (A) 83 %; RBC 3.73 m/uL (3.80-5.40); RDW 15.6 % (11.5-15.5); WBC 7.3 k/uL (3.8-10.6); WBC (Perox) 6.87
[2017-04-04] MEDS ORDERED: SODIUM CHLORIDE 0.9% 1,000 ML IV ONE (11:12)
[2017-04-04 12:06] VITALS: BP 102/51; PULSE 101; TEMP 97.1
[2017-04-05] MEDS ORDERED: LEVOFLOXACIN 750MG-D5W PMX 750 MG in DEXTROSE/WATER 1 150ML.BAG IVPB SCH (08:30)
== END 2017-04-04 12:14 ==
LOC: EC 07:14 → 6SEL 09:39 → UNDOADMIN 09:39 → 6SEL 10:14 → EC 12:14
DX: A41.9 Sepsis, unspecified organism (principal); N39.0 Urinary tract infection, site not specified; R11.10 Vomiting, unspecified; I48.91 Unspecified atrial fibrillation; I25.10 Atherosclerotic heart disease of native coronary artery without angina pectoris; E11.9 Type 2 diabetes mellitus without complications; I11.0 Hypertensive heart disease with heart failure; I50.9 Heart failure, unspecified; M19.90 Unspecified osteoarthritis, unspecified site; E07.9 Disorder of thyroid, unspecified; F32.9 Major depressive disorder, single episode, unspecified; F41.9 Anxiety disorder, unspecified; Z79.01 Long term (current) use of anticoagulants; Z79.4 Long term (current) use of insulin; Z79.899 Other long term (current) drug therapy
CPT/HCPCS: 99285; 96365; 96367; 96366; 96361; 36415; 93005; 80053; 83605; 85025; 85610; 85730; 81001; 87040; 87086; 87502; 71010; J1956; J1741; 87077; 87186

== ENCOUNTER → 2017-06-23 | Outpatient (CLI) | payer MEDICARE, OTHER ==
[2017-06-23 14:46] LABS: Blood Urea Nitrogen 23 mg/dL (7-17); Non-African American GFR(MDRD) 56 (>60 ml/min/1.73 sqM)
--- NOTE | 2017-06-23 16:30 | CT ---
EXAMINATION TYPE: CT abdomen pelvis w con DATE OF EXAM: 06/23/2017 HISTORY: Generalized pain. History of enterocutaneous fistula. CT DLP: 3607mGycm Automated Exposure Control for Dose Reduction was Utilized. CONTRAST: CT scan of the abdomen and pelvis is performed with IV Contrast, patient injected with 80 mL of Visip aque 320. COMPARISON: 03/23/2017 FINDINGS: LUNG BASES: Bibasilar subsegmental dependent atelectasis is noted.. LIVER/GB: No significant abnormality is appreciated. Gallbladder is surgically absent. Decrease in si ze from the prior exam along the inferior right posterior hepatic margin extending into the right lat eral conal fascia there is a complex approximately 2.3 x 2.3 x 3.2 cm area in transverse by craniocau laura by anteroposterior dimension that appears to be centrally lower attenuated and peripherally hypoa ttenuated. PANCREAS: Diffuse pancreatic atrophy is noted. SPLEEN: No significant abnormality is seen. ADRENALS: No significant abnormality is seen. KIDNEYS: No significant abnormality is seen. BOWEL: There is redemonstration of an enterocutaneous fistula containing oral contrast and air withou t evidence of pneumoperitoneum. This is noted right paracentral of the umbilicus, extending to the le ft anterior abdominal wall soft tissues and exiting the skin at 2 separate sites with surrounding inf lammatory change. This is overall similar to the prior exam. Additional sinus tract is seen within th e right lower quadrant extending from the third portion of the duodenum laterally. Well-circumscribed prior omental infarct is also noted of the right anterior abdomen. This finding is decreased from th e prior examination. UTERUS/ADNEXA: No gross abnormality seen. LYMPH NODES: No greater than 1cm abdominal or pelvic lymph nodes are appreciated. OSSEOUS STRUCTURES: Osseous structure trabecular detail is extremely limited due to patient body habi tus and Valium lesion of the sacrum is suboptimal. Additionally patient motion artifact partially obs cures visualization. Degenerative changes are appreciated of the thoracolumbar and lumbosacral spine. OTHER: Askew catheter is present within the nondistended urinary bladder. IMPRESSION: 1. Decreasing size of a right perihepatic probable complex fluid collection. Attention on follow-up e xams is recommended to ensure resolution. 2. Redemonstration of an enterocutaneous fistula and sinus tract as well as involving omental infarct ion, decreased from the prior exam.
== END | disposition home or self-care (01) ==
LOC: RADPROMAIN 13:48
PROVIDERS: ATTEND Family Medicine
DX: T81.83XD Persistent postprocedural fistula, subsequent encounter (principal); S31.109S Unspecified open wound of abdominal wall, unspecified quadrant without penetration into peritoneal cavity, sequela; K94.13 Enterostomy malfunction
CPT/HCPCS: 82565; 84520; 74177; Q9967

== ENCOUNTER 2018-03-06 16:53 | Inpatient (IN) | payer MEDICARE, OTHER ==
[2018-03-06] MEDS ORDERED: ONDANSETRON 4 MG/2 ML VIAL IVP STA (17:26)
[2018-03-06] MEDS ORDERED: SODIUM CHLORIDE 0.9% 500 ML IV STA (17:26)
[2018-03-06] MEDS ORDERED: SODIUM CHLORIDE 0.9% 1,000 ML IV STA (17:26)
[2018-03-06 18:00] LABS: Basophils # (A) 0.1 k/uL (0-0.2); Basophils % (A) 0 %; Eosinophils # (A) 0.1 k/uL (0-0.7); Eosinophils % (A) 1 %; HCT 43.1 % (34.0-46.0); HGB 14.5 gm/dL (11.4-16.0); Lymphocytes # (A) 0.6 k/uL (1.0-4.8); Lymphocytes % (A) 3 %; MCH 26.6 pg (25.0-35.0); MCHC 33.7 g/dL (31.0-37.0); Monocytes # (A) 0.7 k/uL (0-1.0); Monocytes % (A) 3 %; Neutrophils # (A) 17.7 k/uL (1.3-7.7); Neutrophils % (A) 92 %; Platelet Count 319 k/uL (150-450); RBC 5.46 m/uL (3.80-5.40); RDW 14.8 % (11.5-15.5); WBC 19.2 k/uL (3.8-10.6)
[2018-03-06] MEDS ORDERED: PIPERACILLIN-TAZOBACTAM 3.375 GM in DEXTROSE/WATER 1 50ML.BAG IVPB STA (18:16)
[2018-03-06 18:24] LABS: Albumin 3.1 g/dL (3.5-5.0); Calcium 9.9 mg/dL (8.4-10.2); Potassium 4.8 mmol/L (3.5-5.1); Total Bilirubin 1.4 mg/dL (0.2-1.3); Total Protein 6.4 g/dL (6.3-8.2)
--- NOTE | 2018-03-06 18:26 | XR ---
EXAMINATION TYPE: XR KUB DATE OF EXAM: 03/06/2018 COMPARISON: 02/04/2017 HISTORY: Weakness TECHNIQUE: 3 views FINDINGS: Bowel gas pattern is normal. There is no sign of intestinal obstruction or pneumoperitoneum . Fecal pattern is normal. There are no pathologic calcifications over the kidneys. IMPRESSION: Nonacute abdomen. No change.
--- NOTE | 2018-03-06 18:28 | XR ---
EXAMINATION TYPE: XR chest 1V portable DATE OF EXAM: 03/06/2018 COMPARISON: 04/04/2017 HISTORY: Weakness and vomiting TECHNIQUE: Single frontal view of the chest is obtained. FINDINGS: There is no heart failure nor confluent pneumonic infiltrate. Heart size is normal. There is no pleural effusion. Bony thorax appears intact. IMPRESSION: No active cardiopulmonary disease. No adverse change.
[2018-03-06 18:36] LABS: C Reactive Protein 157.8 mg/L (<10.0)
[2018-03-06] MEDS ORDERED: SODIUM CHLORIDE 0.9% 2,000 ML IV ONE (19:03)
[2018-03-06] MEDS: SODIUM CHLORIDE 0.9% 1,000 ML IV SCH (19:44)
--- NOTE | 2018-03-06 20:36 | CT ---
EXAMINATION TYPE: CT abdomen pelvis wo con DATE OF EXAM: 03/06/2018 COMPARISON: 10/06/2017 HISTORY: Abominal pain/infection CT DLP: 2293.5 mGycm Automated exposure control for dose reduction was used. TECHNIQUE: Helical acquisition of images was performed from the lung bases through the pelvis. FINDINGS: There is a right pleural effusion. There is a small infiltrate at the right posterior lung base. Ther e is a very large low attenuation area in the inferior right lobe of the liver that measures 14 cm in length. There is small air bubbles as well. Spleen appears normal. There is no pancreatic mass. Ther e are clips from cholecystectomy. There is no adrenal mass. Kidneys show no hydronephrosis. Kidneys h ave normal contour. There is no retroperitoneal adenopathy. There is no evidence of a bowel obstructi on. Bladder distends smoothly. Uterus is anteverted. Bony structures are intact. I see no lumbar comp ression fracture. There is an apparent ileostomy in the left mid abdomen. There is been apparent rese ction of the right colon and the transverse colon. IMPRESSION: LARGE LOW DENSITY MASS INVOLVING THE INFERIOR RIGHT LOBE OF THE LIVER OR ADJACENT TO THE LIVER. THIS IS CONSISTENT WITH A LARGE ABSCESS WITHIN THE LIVER OR IN THE SUBHEPATIC REGION. THIS APPEARS NEW COM PARED TO THE OLD CT SCAN OF 10/06/2017. THE OLD CT SCAN SHOWS A SMALL FLUID COLLECTION AT THE INFERIOR TIP OF THE RIGHT LOBE OF THE LIVER IN THE REGION OF RIGHT PARACOLIC GUTTER. THIS AREA IS OBSCURED BY THIS LARGE ABNORMALITY ON TODAY'S EXAM. THERE IS NEW SMALL RIGHT PLEURAL EFFUSION AND BASILAR INFILT RATE COMPARED TO OLD EXAM.
--- NOTE | 2018-03-06 21:11 | NM ---
EXAMINATION TYPE: NM pul vent and perfuse DATE OF EXAM: 03/06/2018 COMPARISON: NONE HISTORY: Short of breath TECHNIQUE: Utilizing inhalation of 67.4 mCi Tc 99m DTPA aerosol and intravenous injection of 5.09 mC i of Tc 99m MAA, ventilation and perfusion images are acquired post injection in multiple projections . FINDINGS: There is matching defect at the lateral left lung base. There is no ventilation/perfusion mismatch. T he remainder of the exam is unremarkable. IMPRESSION: Matching defect at the lateral left lung base. No pulmonary consolidation is seen in this area on the chest x-ray today. This could relate to airway disease. There is overall low probability of pulmonar y embolism.
[2018-03-06] MEDS ORDERED: metroNIDAZOLE-NS PMX 500 MG in SALINE 1 100ML.BAG IVPB STA (21:58)
--- NOTE | 2018-03-06 22:03 | ED ---
General Adult HPI - General Chief complaint: Recheck/Abnormal Lab/Rx Stated complaint: vomiting Time Seen by Provider: 03/06/18 17:16 Source: patient, EMS Mode of arrival: EMS Limitations: no limitations, physical limitation - History of Present Illness Initial comments: [age] years old lady came from assisted complaining about Pain in the abdomen it's in the right upper quadrant area she has a gallbladder disease and she had a gallbladder removed she's not been feeling well appetite is down some chills and some nausea and she said it hurts when she takes a deep breath otherwise is no chest pain if she doesn't take a deep breath she is feeling generally weak she saying her way she does find out what's wrong with me. Denies any headaches no neck stiffness no signs of any meningitis no chest pain does have abdominal pain no frequency urgency dysuria no symptoms of TIA or CVA - Related Data Home Medications Medication Instructions Recorded Confirmed Apixaban [Eliquis] 5 mg PO BID 02/04/17 03/06/18 Escitalopram [Lexapro] 30 mg PO DAILY 02/04/17 03/06/18 Metoprolol Tartrate [Lopressor] 50 mg PO TID@06,14,02/22/17 03/06/18 Furosemide [Lasix] 40 mg PO DIRECTED 04/04/17 03/06/18 Atorvastatin [Lipitor] 10 mg PO HS 09/16/17 03/06/18 HYDROcodone/APAP 7.5-325MG [[place] 1 tab PO Q6HR PRN 09/16/17 03/06/18 7.5-325] Levothyroxine Sodium [Synthroid] 75 mcg PO DAILY@0600 09/16/17 03/06/18 Midodrine HCl [ProAmatine] 10 mg PO TID@09,13,21 09/16/17 03/06/18 Ondansetron [Zofran] 4 mg PO Q4H PRN 09/16/17 03/06/18 Amino Acids/Protein Hydrolys 30 ml PO DAILY 03/06/18 03/06/18 [Pro-Stat Supplement] House Antifungal Powder 1 applic TOPICAL BID 03/06/18 03/06/18 Insulin Aspart [NovoLOG Flexpen] See Protocol SQ AC-TID@,,03/06/18 Insulin Glargine [Lantus] 14 unit SQ HS 03/06/18 03/06/18 Levofloxacin [Levaquin] 500 mg PO HS 03/06/18 03/06/18 Magnesium Oxide [Mag-Ox] 400 mg PO BID 03/06/18 03/06/18 Omeprazole 20 mg PO DAILY@0600 03/06/18 03/06/18 Spironolactone [Aldactone] 25 mg PO HS 03/06/18 03/06/18 guaiFENesin [guaiFENesin Oral 200 mg PO Q4H PRN 03/06/18 03/06/18 Solution] Allergies Allergy/AdvReac Type Severity Reaction Status Date / Time No Known Allergies Allergy Verified 03/06/18 17:31 Review of Systems ROS Statement: Those systems with pertinent positive or pertinent negative responses have been documented in the HPI. ROS Other: All systems not noted in ROS Statement are negative. Past Medical History Past Medical History: Atrial Fibrillation, Coronary Artery Disease (CAD), Chest Pain / Angina, Heart Failure, Diabetes Mellitus, Deep Vein Thrombosis (DVT), Hypertension, Osteoarthritis (OA), Respiratory Disorder, Skin Disorder, Sleep Apnea/CPAP/BIPAP, Thyroid Disorder, Vascular Disorder Additional Past Medical History / Comment(s): cellulitus, strangulated ventral hernia with necrotic transverse colon and necrotic omentum 12/2016, ileostomy History of Any Multi-Drug Resistant Organisms: None Reported Past Surgical History: Cholecystectomy, Hernia Repair, Tonsillectomy Additional Past Surgical History / Comment(s): thyroiectomy, bowel surgery 01/14 , Past Psychological History: Anxiety, Depression Smoking Status: Never smoker Past Alcohol Use History: None Reported Past Drug Use History: None Reported General Exam Limitations: no limitations, physical limitation Course Vital Signs 03/06/18 03/06/18 03/06/18 16:55 19:26 21:15 Temperature 98.0 F 98.3 F Pulse Rate 116 H 97 99 Respiratory 16 18 18 Rate Blood Pressure 131/78 114/83 127/62 O2 Sat by Pulse 96 99 99 Oximetry Medical Decision Making - Lab Data Result diagrams: 03/06/18 17:40 03/06/18 17:40 Lab Results 03/06/18 03/06/18 03/06/18 Range/Units 17:40 17:40 17:40 WBC 19.2 H (3.8-10.6) k/uL RBC 5.46 H (3.80-5.40) m/uL Hgb 14.5 (11.4-16.0) gm/dL Hct 43.1 (34.0-46.0) % MCV 79.0 L (80.0-100.0) fL MCH 26.6 (25.0-35.0) pg MCHC 33.7 (31.0-37.0) g/dL RDW 14.8 (11.5-15.5) % Plt Count 319 (150-450) k/uL Neutrophils % 92 % Lymphocytes % 3 % Monocytes % 3 % Eosinophils % 1 % Basophils % 0 % Neutrophils # 17.7 H (1.3-7.7) k/uL Lymphocytes # 0.6 L (1.0-4.8) k/uL Monocytes # 0.7 (0-1.0) k/uL Eosinophils # 0.1 (0-0.7) k/uL Basophils # 0.1 (0-0.2) k/uL D-Dimer (<0.60) mg/L FEU Sodium 123 L (137-145) mmol/L Potassium 4.8 (3.5-5.1) mmol/L Chloride 88 L (98-107) mmol/L Carbon Dioxide 17 L (22-30) mmol/L Anion Gap 18 mmol/L BUN 47 H (7-17) mg/dL Creatinine 1.80 H (0.52-1.04) mg/dL Est GFR (CKD-EPI)AfAm 34 (>60 ml/min/1.73 sqM) Est GFR (CKD-EPI)NonAf 30 (>60 ml/min/1.73 sqM) Glucose 221 H (74-99) mg/dL Lactic Ac Sepsis Rflx Plasma Lactic Acid Ronnie 2.9 H* (0.7-2.0) mmol/L Calcium 9.9 (8.4-10.2) mg/dL Total Bilirubin 1.4 H (0.2-1.3) mg/dL AST 15 (14-36) U/L ALT 10 (9-52) U/L Alkaline Phosphatase 167 H (38-126) U/L C-Reactive Protein 157.8 H (<10.0) mg/L Total Protein 6.4 (6.3-8.2) g/dL Albumin 3.1 L (3.5-5.0) g/dL Amylase 41 (30-110) U/L Lipase 122 (23-300) U/L 03/06/18 03/06/18 Range/Units 17:50 18:25 WBC (3.8-10.6) k/uL RBC (3.80-5.40) m/uL Hgb (11.4-16.0) gm/dL Hct (34.0-46.0) % MCV (80.0-100.0) fL MCH (25.0-35.0) pg MCHC (31.0-37.0) g/dL RDW (11.5-15.5) % Plt Count (150-450) k/uL Neutrophils % % Lymphocytes % % Monocytes % % Eosinophils % % Basophils % % Neutrophils # (1.3-7.7) k/uL Lymphocytes # (1.0-4.8) k/uL Monocytes # (0-1.0) k/uL Eosinophils # (0-0.7) k/uL Basophils # (0-0.2) k/uL D-Dimer 1.41 H (<0.60) mg/L FEU Sodium (137-145) mmol/L Potassium (3.5-5.1) mmol/L Chloride (98-107) mmol/L Carbon Dioxide (22-30) mmol/L Anion Gap mmol/L BUN (7-17) mg/dL Creatinine (0.52-1.04) mg/dL Est GFR (CKD-EPI)AfAm (>60 ml/min/1.73 sqM) Est GFR (CKD-EPI)NonAf (>60 ml/min/1.73 sqM) Glucose (74-99) mg/dL Lactic Ac Sepsis Rflx Y Plasma Lactic Acid Ronnie (0.7-2.0) mmol/L Calcium (8.4-10.2) mg/dL Total Bilirubin (0.2-1.3) mg/dL AST (14-36) U/L ALT (9-52) U/L Alkaline Phosphatase (38-126) U/L C-Reactive Protein (<10.0) mg/L Total Protein (6.3-8.2) g/dL Albumin (3.5-5.0) g/dL Amylase (30-110) U/L Lipase (23-300) U/L Critical Care Time Total Critical Care Time: 60 Critical Care Time: Presented With generalized abdominal pain I noticed the white count is elevated 19.2 she is quite tender over the right upper quadrant area that prompted me to do the CT of abdomen and then d-dimer was elevated with the pleuritic chest pain that's why CT chest angiogram was indicated but considering elevated and she is not a candidate for CT angiogram, we did the VQ scan VQ scan as stated is low probability for pulmonary embolism CT abdomen showed some mom pleural effusion bilateral maybe infiltrate on the both lower lobes of the lungs and abscess on the liver Zosyn and Flagyl was started discussed in great detail with the Dr. Powell she has been now seen by multiple surgeons and unfortunately there were no plans in place for dates no surgical intervention option available at this point considering she had a multiple fistulas Dr. Snider advised to consult Dr. Terry and then interventional radiology see if they could drain the abscess Disposition Clinical Impression: Liver abscess, Sepsis, Renal insufficiency, Pneumonia Disposition: ADMITTED IP TO THIS HOSP Referrals: Angela Powell MD [Primary Care Provider] - 1-2 days
[2018-03-06] MEDS ORDERED: MORPHINE SULFATE 4 MG/ML SYRINGE IV PRN (22:04)
[2018-03-06] MEDS ORDERED: ONDANSETRON 4 MG/2 ML VIAL IVP PRN (22:04)
[2018-03-06] MEDS ORDERED: NALOXONE 0.4 MG/ML 1 ML VIAL IV PRN (22:04)
[2018-03-06] MEDS ORDERED: ONDANSETRON 4 MG TAB PO PRN (22:13)
[2018-03-06] MEDS ORDERED: guaiFENesin SYRUP 100MG/5ML 200 MG/10 ML CUP PO PRN (22:13)
[2018-03-06] MEDS ORDERED: FUROSEMIDE 40 MG TAB PO PRN (22:15)
[2018-03-06] MEDS ORDERED: INSULIN DETEMIR 100 UNIT/ML 10 ML VIAL SQ SCH (23:00)
[2018-03-06] MEDS ORDERED: LEVOFLOXACIN 500 MG TAB PO SCH (23:00)
[2018-03-07] MEDS: METOPROLOL TARTRATE 50 MG TAB PO SCH ×4 (00:01→20:34)
[2018-03-07] MEDS: ATORVASTATIN 10 MG TAB PO SCH ×2 (00:01→20:33)
[2018-03-07 00:23] LABS: Glucose,Whole Blood 190 mg/dL (75-99)
[2018-03-07] MEDS: metroNIDAZOLE-NS PMX 500 MG in SALINE 1 100ML.BAG IVPB SCH ×2 (01:52→07:47)
[2018-03-07] MEDS: PIPERACILLIN-TAZOBACTAM 3.375 GM in DEXTROSE/WATER 1 50ML.BAG IVPB SCH ×2 (01:52→08:54)
[2018-03-07] MEDS: SODIUM CHLORIDE 0.9% 1,000 ML IV SCH ×2 (06:05→16:19)
[2018-03-07] MEDS: PANTOPRAZOLE 40 MG TABLET PO SCH (06:06)
[2018-03-07] MEDS: LEVOTHYROXINE 75 MCG TAB PO SCH (06:06)
[2018-03-07 07:21] LABS: Glucose,Whole Blood 197 mg/dL (75-99)
[2018-03-07] MEDS: INSULIN ASPART 100 UNIT/ML 1 ML 10 ML VIAL SQ SCH ×4 (08:01→21:04)
[2018-03-07] MEDS: MAGNESIUM OXIDE 400 MG TAB PO SCH ×2 (08:02→20:34)
[2018-03-07] MEDS: ESCITALOPRAM 10 MG TAB PO SCH (08:02)
[2018-03-07] MEDS: MIDODRINE 5 MG TAB PO SCH ×3 (08:02→22:46)
[2018-03-07 08:23] LABS: Albumin 2.5 g/dL (3.5-5.0); Calcium 8.5 mg/dL (8.4-10.2); Potassium 3.6 mmol/L (3.5-5.1); Total Bilirubin 1.1 mg/dL (0.2-1.3); Total Protein 5.1 g/dL (6.3-8.2)
[2018-03-07 08:40] LABS: Basophils % (A) 0 %; Eosinophils % (A) 0 %; HCT 32.7 % (34.0-46.0); Lymphocytes # (A) 0.8 k/uL (1.0-4.8); Lymphocytes % (A) 6 %; MCH 27.3 pg (25.0-35.0); MCHC 33.3 g/dL (31.0-37.0); MCV 82.1 fL (80.0-100.0); Mean Platelet Volume 8.2; Monocytes # (A) 0.5 k/uL (0-1.0); Monocytes % (A) 3 %; Neutrophils # (A) 11.7 k/uL (1.3-7.7); Neutrophils % (A) 90 %; Platelet Count 247 k/uL (150-450); RBC 3.98 m/uL (3.80-5.40); RDW 14.7 % (11.5-15.5); WBC 13.1 k/uL (3.8-10.6)
[2018-03-07 08:43] LABS: HGB 10.9 gm/dL (11.4-16.0)
[2018-03-07] MEDS ORDERED: NON-FORMULARY DRUG (Amino Acids/Protein Hydrolys [Pro-Stat Supplement] 30 ML) PO SCH (09:00)
[2018-03-07] MEDS: NYSTATIN 100,000 UNIT/GM POWD 15 GM TOPICAL SCH ×2 (09:04→20:34)
[2018-03-07] MEDS ORDERED: MEROPENEM 1 GM in SODIUM CHLORIDE 0.9% 100 ML IVPB SCH (09:45)
[2018-03-07] MEDS ORDERED: MORPHINE ORAL SOLN 10 MG/5 ML CUP PO PRN (09:53)
--- NOTE | 2018-03-07 10:24 | P.CONS ---
History of Present Illness - Reason for Consult Consult date: 03/07/18 Liver abscess - History of Present Illness This is a 62-year-old morbidly obese female patient known to ID service as she was seen in August 2017 in the wound center for ulcers to the abdominal wall. She resides at [facility] for the past year and a half, wheelchair -bound. She gives history of 5 weeks of shortness of breath, nausea, vomiting, cough and right-sided abdominal pain. She was ordered for an outpatient CAT scan of the abdomen and pelvis but on the day she was supposed to come in she was feeling dizzy whenever she sat up in the van was late and she can set up any longer and right insisted on going back to her room. She did have a previous CAT scan of the abdomen and pelvis done on 10/06/2017 that didn't show increased size in perihepatic fluid collection. No evidence of liver and small involvement. 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 Patient does have ileostomy in place which is usual liquid output and she denies any change in volume. At [facility], her blood pressure was 88/60, pulse 98, temperature 97.4 and pulse ox 90% on room air. Patient presented to [facility] with the above complaints. White count was 19.2, sodium 123, chloride 88, BUN 47 creatinine 1.8 blood sugar was 227 total bilirubin 1.4, alkaline phosphatase 167, CRP 157.8. Amylase and lipase were normal. Chest x-ray showed no acute cardio pulmonary disease. KUB was non-acute findings. D-dimer was elevated 1.41. She underwent a VQ scan that showed low probability for pulmonary embolism and no pulmonary consolidation. CAT scan of the abdomen and pelvis without contrast showed a large abscess within the liver which appears new when compared to scan on 2016. There is no small right pleural effusion and basilar infiltrate compared to old exam. Patient was recently treated for a urinary tract infection with Levaquin and was started on March 05 she denies having any urinary symptoms no pain or burning with urination. Urine culture returned greater than 100,000 colonies of Enterobacter aerogenes. Patient was started on Levaquin, Flagyl and Zosyn and [facility]. Patient states that her nausea is improved but she continues to have shortness of breath even at rest. She continues to have some mild discomfort to the right upper quadrant but not severe pain. She does complain of increased pain to the right upper quadrant with deep breathing. She states she is cold all the time but did not really have fever or chills. Review of Systems All systems: negative Constitutional: Reports fatigue, Denies chills, Denies fever, Denies sweats Eyes: denies blurred vision, denies pain Ears, nose, mouth and throat: Reports dental pain, Reports mouth pain, Reports vertigo, Denies headache, Denies sore throat Cardiovascular: Reports leg edema, Reports lightheadedness, Denies chest pain, Denies decreased exercise tolerance, Denies dyspnea on exertion, Denies shortness of breath, Denies syncope Respiratory: Reports cough, Reports dyspnea, Denies cough with sputum, Denies excessive sputum, Denies hemoptysis, Denies wheezing Gastrointestinal: Reports abdominal pain, Reports nausea, Reports vomiting, Denies diarrhea Genitourinary: Denies dysuria, Denies hematuria, Denies urgency, Denies urinary frequency Musculoskeletal: Denies myalgias Integumentary: Denies pruritus, Denies rash Neurological: Denies numbness, Denies weakness Psychiatric: Denies anxiety, Denies depression Endocrine: Denies fatigue, Denies weight change Past Medical History Past Medical History: Atrial Fibrillation, Coronary Artery Disease (CAD), Chest Pain / Angina, Heart Failure, Diabetes Mellitus, Deep Vein Thrombosis (DVT), Hypertension, Osteoarthritis (OA), Respiratory Disorder, Skin Disorder, Sleep Apnea/CPAP/BIPAP, Thyroid Disorder, Vascular Disorder Additional Past Medical History / Comment(s): cellulitus, strangulated ventral hernia with necrotic transverse colon and necrotic omentum 12/2016, ileostomy History of Any Multi-Drug Resistant Organisms: None Reported Past Surgical History: Cholecystectomy, Hernia Repair, Tonsillectomy Additional Past Surgical History / Comment(s): thyroidectomy, bowel surgery , Past Psychological History: Anxiety, Depression Smoking Status: Never smoker Past Alcohol Use History: None Reported Additional Past Alcohol Use History / Comment(s): Patient currently resides at [facility] and has been there for urinary half. She is wheelchair bound. Past Drug Use History: None Reported - Past Family History Sister(s) Family Medical History: Memory Impairment Mother Family Medical History: Unable to Obtain Medications and Allergies Home Medications Medication Instructions Recorded Confirmed Type Apixaban [Eliquis] 5 mg PO BID 02/04/17 03/06/18 History Escitalopram [Lexapro] 30 mg PO DAILY 02/04/17 03/06/18 History Metoprolol Tartrate [Lopressor] 50 mg PO TID@06,,02/22/17 03/06/18 History Furosemide [Lasix] 40 mg PO DIRECTED 04/04/17 03/06/18 History Atorvastatin [Lipitor] 10 mg PO HS 09/16/17 03/06/18 History HYDROcodone/APAP 7.5-325MG [Mazon 1 tab PO Q6HR PRN 09/16/17 03/06/18 History 7.5-325] Levothyroxine Sodium [Synthroid] 75 mcg PO DAILY@0600 09/16/17 03/06/18 History Midodrine HCl [ProAmatine] 10 mg PO TID@,,09/16/17 03/06/18 History Ondansetron [Zofran] 4 mg PO Q4H PRN 09/16/17 03/06/18 History Amino Acids/Protein Hydrolys 30 ml PO DAILY 03/06/18 03/06/18 History [Pro-Stat Supplement] House Antifungal Powder 1 applic TOPICAL BID 03/06/18 03/06/18 History Insulin Aspart [NovoLOG Flexpen] See Protocol SQ AC-TID@,,03/06/18 History Insulin Glargine [Lantus] 14 unit SQ HS 03/06/18 03/06/18 History Levofloxacin [Levaquin] 500 mg PO HS 03/06/18 03/06/18 History Magnesium Oxide [Mag-Ox] 400 mg PO BID 03/06/18 03/06/18 History Omeprazole 20 mg PO DAILY@0600 03/06/18 03/06/18 History Spironolactone [Aldactone] 25 mg PO HS 03/06/18 03/06/18 History guaiFENesin [guaiFENesin Oral 200 mg PO Q4H PRN 03/06/18 03/06/18 History Solution] Allergies Allergy/AdvReac Type Severity Reaction Status Date / Time No Known Allergies Allergy Verified 03/06/18 17:31 Physical Exam Vitals: Vital Signs Temp Pulse Pulse Resp BP BP Pulse Ox 03/07/18 09:34 86 99/69 03/07/18 05:40 96.8 F L 97 15 78/49 99 03/06/18 23:40 96.9 F L 92 16 86/64 99 03/06/18 22:52 98.0 F 03/06/18 22:05 94 18 147/77 98 03/06/18 21:15 98.3 F 99 18 127/62 99 03/06/18 19:26 97 18 114/83 99 03/06/18 16:55 98.0 F 116 H 16 131/78 96 Intake and Output 03/06/18 03/07/18 03/07/18 22:59 06:59 14:59 Other: Voiding Method Diaper Incontinent # Voids 1 Weight 131.134 kg Gen: This is a morbidly obese 62-year-old female. She is in bed with head of the bed up. She appears to be comfortable and in no acute distress. No respiratory distress is noted. HEENT: Head is atraumatic, normocephalic. Pupils equal, round. Sclerae is anicteric. Mucous members of the mouth are moist. No thrush. Dentition is in poor order with multiple cracked teeth and caries. NECK: Supple. No JVD. No lymphadenopathy. No thyromegaly. LUNGS: Clear to auscultation. No wheezes or rhonchi. Diminished on the right side. No intercostal retractions. HEART: Regular rate and rhythm. No murmur. ABDOMEN: Morbidly obese. Soft. Bowel sounds are present. Right upper quadrant mass palpable with noted tenderness. Ileostomy to the mid abdomen with liquid light brown stool. No redness under abdominal folds. No suprapubic tenderness. EXTREMITIES: +1 pedal edema bilaterally. No calf tenderness. Dorsalis pedis weak bilaterally. NEUROLOGICAL: Patient is awake, alert and oriented x3. Cranial nerves 2 through 12 are grossly intact. Generalized weakness noted. Results Results: Laboratory Results WBC 13.1 k/uL (3.8-10.6) H 03/07/18 07:59 RBC 3.98 m/uL (3.80-5.40) 03/07/18 07:59 Hgb 10.9 gm/dL (11.4-16.0) L D 03/07/18 07:59 Hct 32.7 % (34.0-46.0) L 03/07/18 07:59 MCV 82.1 fL (80.0-100.0) 03/07/18 07:59 MCH 27.3 pg (25.0-35.0) 03/07/18 07:59 MCHC 33.3 g/dL (31.0-37.0) 03/07/18 07:59 RDW 14.7 % (11.5-15.5) 03/07/18 07:59 Plt Count 247 k/uL (150-450) 03/07/18 07:59 Neutrophils % 90 % 03/07/18 07:59 Lymphocytes % 6 % 03/07/18 07:59 Monocytes % 3 % 03/07/18 07:59 Eosinophils % 0 % 03/07/18 07:59 Basophils % 0 % 03/07/18 07:59 Neutrophils # 11.7 k/uL (1.3-7.7) H 03/07/18 07:59 Lymphocytes # 0.8 k/uL (1.0-4.8) L 03/07/18 07:59 Monocytes # 0.5 k/uL (0-1.0) 03/07/18 07:59 Eosinophils # 0.0 k/uL (0-0.7) 03/07/18 07:59 Basophils # 0.0 k/uL (0-0.2) 03/07/18 07:59 D-Dimer 1.41 mg/L FEU (<0.60) H 03/06/18 17:50 Sodium 128 mmol/L (137-145) L 03/07/18 07:59 Potassium 3.6 mmol/L (3.5-5.1) 03/07/18 07:59 Chloride 96 mmol/L (98-107) L 03/07/18 07:59 Carbon Dioxide 19 mmol/L (22-30) L 03/07/18 07:59 Anion Gap 13 mmol/L 03/07/18 07:59 BUN 42 mg/dL (7-17) H 03/07/18 07:59 Creatinine 1.56 mg/dL (0.52-1.04) H 03/07/18 07:59 Est GFR (CKD-EPI)AfAm 41 (>60 ml/min/1.73 sqM) 03/07/18 07:59 Est GFR (CKD-EPI)NonAf 36 (>60 ml/min/1.73 sqM) 03/07/18 07:59 Glucose 176 mg/dL (74-99) H 03/07/18 07:59 POC Glucose (mg/dL) 197 mg/dL (75-99) H 03/07/18 07:03 POC Glu Conservation Worker ID Suzan Shaw 03/07/18 07:03 Lactic Ac Sepsis Rflx Y 03/06/18 18:25 Plasma Lactic Acid Ronnie 1.0 mmol/L (0.7-2.0) 03/06/18 22:35 Calcium 8.5 mg/dL (8.4-10.2) 03/07/18 07:59 Total Bilirubin 1.1 mg/dL (0.2-1.3) 03/07/18 07:59 AST 13 U/L (14-36) L 03/07/18 07:59 ALT 13 U/L (9-52) 03/07/18 07:59 Alkaline Phosphatase 124 U/L (38-126) 03/07/18 07:59 C-Reactive Protein 157.8 mg/L (<10.0) H 03/06/18 17:40 Total Protein 5.1 g/dL (6.3-8.2) L 03/07/18 07:59 Albumin 2.5 g/dL (3.5-5.0) L 03/07/18 07:59 Amylase 41 U/L (30-110) 03/06/18 17:40 Lipase 122 U/L (23-300) 03/06/18 17:40 CBC & Chem 7: 03/07/18 07:59 03/07/18 07:59 Labs: Abnormal Lab Results - Last 24 Hours (Table) 03/06/18 03/06/18 03/06/18 Range/Units 17:40 17:40 17:40 WBC 19.2 H (3.8-10.6) k/uL RBC 5.46 H (3.80-5.40) m/uL Hgb (11.4-16.0) gm/dL Hct (34.0-46.0) % MCV 79.0 L (80.0-100.0) fL Neutrophils # 17.7 H (1.3-7.7) k/uL Lymphocytes # 0.6 L (1.0-4.8) k/uL D-Dimer (<0.60) mg/L FEU Sodium 123 L (137-145) mmol/L Chloride 88 L (98-107) mmol/L Carbon Dioxide 17 L (22-30) mmol/L BUN 47 H (7-17) mg/dL Creatinine 1.80 H (0.52-1.04) mg/dL Glucose 221 H (74-99) mg/dL POC Glucose (mg/dL) (75-99) mg/dL Plasma Lactic Acid Ronnie 2.9 H* (0.7-2.0) mmol/L Total Bilirubin 1.4 H (0.2-1.3) mg/dL AST (14-36) U/L Alkaline Phosphatase 167 H (38-126) U/L C-Reactive Protein 157.8 H (<10.0) mg/L Total Protein (6.3-8.2) g/dL Albumin 3.1 L (3.5-5.0) g/dL 03/06/18 03/07/18 03/07/18 Range/Units 17:50 00:02 07:03 WBC (3.8-10.6) k/uL RBC (3.80-5.40) m/uL Hgb (11.4-16.0) gm/dL Hct (34.0-46.0) % MCV (80.0-100.0) fL Neutrophils # (1.3-7.7) k/uL Lymphocytes # (1.0-4.8) k/uL D-Dimer 1.41 H (<0.60) mg/L FEU Sodium (137-145) mmol/L Chloride (98-107) mmol/L Carbon Dioxide (22-30) mmol/L BUN (7-17) mg/dL Creatinine (0.52-1.04) mg/dL Glucose (74-99) mg/dL POC Glucose (mg/dL) 190 H 197 H (75-99) mg/dL Plasma Lactic Acid Ronnie (0.7-2.0) mmol/L Total Bilirubin (0.2-1.3) mg/dL AST (14-36) U/L Alkaline Phosphatase (38-126) U/L C-Reactive Protein (<10.0) mg/L Total Protein (6.3-8.2) g/dL Albumin (3.5-5.0) g/dL 03/07/18 03/07/18 Range/Units 07:59 07:59 WBC 13.1 H (3.8-10.6) k/uL RBC (3.80-5.40) m/uL Hgb 10.9 L D (11.4-16.0) gm/dL Hct 32.7 L (34.0-46.0) % MCV (80.0-100.0) fL Neutrophils # 11.7 H (1.3-7.7) k/uL Lymphocytes # 0.8 L (1.0-4.8) k/uL D-Dimer (<0.60) mg/L FEU Sodium 128 L (137-145) mmol/L Chloride 96 L (98-107) mmol/L Carbon Dioxide 19 L (22-30) mmol/L BUN 42 H (7-17) mg/dL Creatinine 1.56 H (0.52-1.04) mg/dL Glucose 176 H (74-99) mg/dL POC Glucose (mg/dL) (75-99) mg/dL Plasma Lactic Acid Ronnie (0.7-2.0) mmol/L Total Bilirubin (0.2-1.3) mg/dL AST 13 L (14-36) U/L Alkaline Phosphatase (38-126) U/L C-Reactive Protein (<10.0) mg/L Total Protein 5.1 L (6.3-8.2) g/dL Albumin 2.5 L (3.5-5.0) g/dL Assessment and Plan Plan: This is a 62-year-old female patient who presented to the hospital with signs of sepsis with white count of 19.2, temperature of 96.8 and hypotension secondary to liver abscess. Patient also presented with acute kidney injury secondary to dehydration. She is currently on antibiotics in form of Levaquin, Flagyl and Zosyn. These will be streamlined to meropenem. Interventional radiology will be consult it for drainage of the liver abscess. Note the patient is on eliquis which was discontinued on her admission. Continue supportive care. Blood culture is in progress. Further recommendations as patient progresses. The above dictated assessment and findings were discussed with Dr. Sky. The impression and plan of care have been directed as dictated. Ping Jaffe nurse practitioner acting as scribe for Dr. Sky.
[2018-03-07 11:38] LABS: INR 1.2 (<1.2); Prothrombin Time 11.8 sec (9.0-12.0)
[2018-03-07 12:12] LABS: Glucose,Whole Blood 177 mg/dL (75-99)
--- NOTE | 2018-03-07 14:45 | P.HPIM ---
History of Present Illness H&P Date: 03/07/18 Chief Complaint: Abdominal pain and shortness of breath, nausea vomiting This is a 62-year-old female patient of Dr. Powell who resides at [facility] for the past year and a half, wheelchair-bound. She gives history of 5 weeks of shortness of breath, nausea, vomiting, cough and right-sided abdominal pain. She was ordered for an outpatient CAT scan of the abdomen and pelvis but on the day she was supposed to come in she was feeling dizzy whenever she sat up in the van was late and she can set up any longer and right insisted on going back to her room. She did have a previous CAT scan of the abdomen and pelvis done on 10/06/2017 that didn't show increased size in perihepatic fluid collection. No evidence of liver and small involvement. 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 Patient does have ileostomy in place which is usual liquid output and she denies any change in volume. At [facility], her blood pressure was 88/60, pulse 98, temperature 97.4 and pulse ox 90% on room air. Patient presented to [facility] with the above complaints. White count was 19.2, sodium 123 , chloride 88, BUN 47 creatinine 1.8 blood sugar was 227 total bilirubin 1.4, alkaline phosphatase 167, CRP 157.8. Amylase and lipase were normal. Chest x- ray showed no acute cardio pulmonary disease. KUB was non-acute findings. D- dimer was elevated 1.41. She underwent a VQ scan that showed low probability for pulmonary embolism and no pulmonary consolidation. CAT scan of the abdomen and pelvis without contrast showed a large abscess within the liver which appears new when compared to scan on 10/06/2017. There is no small right pleural effusion and basilar infiltrate compared to old exam. Patient was recently treated for a urinary tract infection with Levaquin and was started on March 05 she denies having any urinary symptoms no pain or burning with urination. Urine culture returned greater than 100,000 colonies of Enterobacter aerogenes. Patient was started on Levaquin, Flagyl and Zosyn and admitted to the [facility] floor. Consult with Dr. Jose Daniel farmer. Patient has history of treatment at [facility] with Dr. Yee. She had a strangulated ventral hernia and underwent exploratory laparotomy and ileostomy with right hemicolectomy 12/19/2016 with ischemic bowel found. She had a wound VAC placed and subsequently a secondary closure on 12/12/2016. She was diagnosed with a Staphylococcus epidermidis bacteremia possibly related to a PICC line and underwent IV antibiotics with daptomycin by subsequent thrombosis the left arm/axillary. She went to [facility] with TPN and IV antibiotics and was subsequently discharged to [facility]. 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 Review of Systems All systems: negative Constitutional: Reports fatigue, Denies chills, Denies fever Eyes: denies blurred vision, denies pain Ears, nose, mouth and throat: Reports vertigo, Denies dental pain, Denies dysphagia, Denies headache, Denies mouth pain, Denies sore throat Cardiovascular: Reports leg edema, Reports lightheadedness, Denies chest pain, Denies decreased exercise tolerance, Denies dyspnea on exertion, Denies edema, Denies shortness of breath, Denies syncope Respiratory: Reports dyspnea, Denies cough, Denies cough with sputum, Denies excessive sputum, Denies hemoptysis, Denies sleep apnea, Denies wheezing Gastrointestinal: Reports abdominal pain, Reports nausea, Reports vomiting, Denies diarrhea Genitourinary: Denies dysuria, Denies hematuria, Denies urgency, Denies urinary frequency Musculoskeletal: Denies myalgias Integumentary: Denies pruritus, Denies rash Neurological: Reports numbness, Denies weakness Psychiatric: Denies anxiety, Denies depression Endocrine: Denies fatigue, Denies weight change Past Medical History Past Medical History: Atrial Fibrillation, Coronary Artery Disease (CAD), Chest Pain / Angina, Heart Failure, Diabetes Mellitus, Deep Vein Thrombosis (DVT), Hypertension, Osteoarthritis (OA), Respiratory Disorder, Skin Disorder, Sleep Apnea/CPAP/BIPAP, Thyroid Disorder, Vascular Disorder Additional Past Medical History / Comment(s): cellulitus, strangulated ventral hernia with necrotic transverse colon and necrotic omentum 12/2016, ileostomy, chronic kidney disease stage II History of Any Multi-Drug Resistant Organisms: None Reported Past Surgical History: Cholecystectomy, Hernia Repair, Tonsillectomy Additional Past Surgical History / Comment(s): thyroidectomy, bowel surgery , Past Psychological History: Anxiety, Depression Smoking Status: Never smoker Past Alcohol Use History: None Reported Additional Past Alcohol Use History / Comment(s): Patient currently resides at [facility] and has been there for urinary half. She is wheelchair bound. Past Drug Use History: None Reported - Past Family History Sister(s) Family Medical History: Memory Impairment Mother Family Medical History: Unable to Obtain Additional Family Medical History / Comment(s): History of coronary artery disease Medications and Allergies Home Medications Medication Instructions Recorded Confirmed Type Apixaban [Eliquis] 5 mg PO BID 02/04/17 03/06/18 History Escitalopram [Lexapro] 30 mg PO DAILY 02/04/17 03/06/18 History Metoprolol Tartrate [Lopressor] 50 mg PO TID@,,02/22/17 03/06/18 History Furosemide [Lasix] 40 mg PO DIRECTED 04/04/17 03/06/18 History Atorvastatin [Lipitor] 10 mg PO HS 09/16/17 03/06/18 History HYDROcodone/APAP 7.5-325MG [[place] 1 tab PO Q6HR PRN 09/16/17 03/06/18 History 7.5-325] Levothyroxine Sodium [Synthroid] 75 mcg PO DAILY@0600 09/16/17 03/06/18 History Midodrine HCl [ProAmatine] 10 mg PO TID@,,09/16/17 03/06/18 History Ondansetron [Zofran] 4 mg PO Q4H PRN 09/16/17 03/06/18 History Amino Acids/Protein Hydrolys 30 ml PO DAILY 03/06/18 03/06/18 History [Pro-Stat Supplement] House Antifungal Powder 1 applic TOPICAL BID 03/06/18 03/06/18 History Insulin Aspart [NovoLOG Flexpen] See Protocol SQ AC-TID@,,03/06/18 History Insulin Glargine [Lantus] 14 unit SQ HS 03/06/18 03/06/18 History Levofloxacin [Levaquin] 500 mg PO HS 03/06/18 03/06/18 History Magnesium Oxide [Mag-Ox] 400 mg PO BID 03/06/18 03/06/18 History Omeprazole 20 mg PO DAILY@0600 03/06/18 03/06/18 History Spironolactone [Aldactone] 25 mg PO HS 03/06/18 03/06/18 History guaiFENesin [guaiFENesin Oral 200 mg PO Q4H PRN 03/06/18 03/06/18 History Solution] Allergies Allergy/AdvReac Type Severity Reaction Status Date / Time No Known Allergies Allergy Verified 03/06/18 17:31 Physical Exam Vitals: Vital Signs Temp Pulse Pulse Resp BP BP Pulse Ox 03/07/18 09:34 86 99/69 03/07/18 05:40 96.8 F L 97 15 78/49 99 03/06/18 23:40 96.9 F L 92 16 86/64 99 03/06/18 22:52 98.0 F 03/06/18 22:05 94 18 147/77 98 03/06/18 21:15 98.3 F 99 18 127/62 99 03/06/18 19:26 97 18 114/83 99 03/06/18 16:55 98.0 F 116 H 16 131/78 96 Intake and Output 03/06/18 03/07/18 03/07/18 22:59 06:59 14:59 Other: Voiding Method Diaper Incontinent # Voids 1 Weight 131.134 kg Gen: This is a morbidly obese 62-year-old female. She is in bed with head of the bed up. She appears to be comfortable and in no acute distress. No respiratory distress is noted. HEENT: Head is atraumatic, normocephalic. Pupils equal, round. Sclerae is anicteric. Mucous members of the mouth are moist. No thrush. Dentition is in poor order with multiple cracked teeth and caries. NECK: Supple. No JVD. No lymphadenopathy. No thyromegaly. LUNGS: Clear to auscultation. No wheezes or rhonchi. Diminished on the right side. No intercostal retractions. HEART: Regular rate and rhythm. No murmur. ABDOMEN: Morbidly obese. Soft. Bowel sounds are present. Right upper quadrant mass palpable with noted tenderness. Very large open ileostomy to the mid abdomen with liquid light brown stool. No redness under abdominal folds. No suprapubic tenderness. EXTREMITIES: +1 pedal edema bilaterally. No calf tenderness. Dorsalis pedis weak bilaterally. NEUROLOGICAL: Patient is awake, alert and oriented x3. Cranial nerves 2 through 12 are grossly intact. Results CBC & Chem 7: 03/07/18 07:59 03/07/18 07:59 Labs: Abnormal Lab Results - Last 24 Hours (Table) 03/06/18 03/06/18 03/06/18 Range/Units 17:40 17:40 17:40 WBC 19.2 H (3.8-10.6) k/uL RBC 5.46 H (3.80-5.40) m/uL Hgb (11.4-16.0) gm/dL Hct (34.0-46.0) % MCV 79.0 L (80.0-100.0) fL Neutrophils # 17.7 H (1.3-7.7) k/uL Lymphocytes # 0.6 L (1.0-4.8) k/uL D-Dimer (<0.60) mg/L FEU Sodium 123 L (137-145) mmol/L Chloride 88 L (98-107) mmol/L Carbon Dioxide 17 L (22-30) mmol/L BUN 47 H (7-17) mg/dL Creatinine 1.80 H (0.52-1.04) mg/dL Glucose 221 H (74-99) mg/dL POC Glucose (mg/dL) (75-99) mg/dL Plasma Lactic Acid Ronnie 2.9 H* (0.7-2.0) mmol/L Total Bilirubin 1.4 H (0.2-1.3) mg/dL AST (14-36) U/L Alkaline Phosphatase 167 H (38-126) U/L C-Reactive Protein 157.8 H (<10.0) mg/L Total Protein (6.3-8.2) g/dL Albumin 3.1 L (3.5-5.0) g/dL 03/06/18 03/07/18 03/07/18 Range/Units 17:50 00:02 07:03 WBC (3.8-10.6) k/uL RBC (3.80-5.40) m/uL Hgb (11.4-16.0) gm/dL Hct (34.0-46.0) % MCV (80.0-100.0) fL Neutrophils # (1.3-7.7) k/uL Lymphocytes # (1.0-4.8) k/uL D-Dimer 1.41 H (<0.60) mg/L FEU Sodium (137-145) mmol/L Chloride (98-107) mmol/L Carbon Dioxide (22-30) mmol/L BUN (7-17) mg/dL Creatinine (0.52-1.04) mg/dL Glucose (74-99) mg/dL POC Glucose (mg/dL) 190 H 197 H (75-99) mg/dL Plasma Lactic Acid Ronnie (0.7-2.0) mmol/L Total Bilirubin (0.2-1.3) mg/dL AST (14-36) U/L Alkaline Phosphatase (38-126) U/L C-Reactive Protein (<10.0) mg/L Total Protein (6.3-8.2) g/dL Albumin (3.5-5.0) g/dL 03/07/18 03/07/18 Range/Units 07:59 07:59 WBC 13.1 H (3.8-10.6) k/uL RBC (3.80-5.40) m/uL Hgb 10.9 L D (11.4-16.0) gm/dL Hct 32.7 L (34.0-46.0) % MCV (80.0-100.0) fL Neutrophils # 11.7 H (1.3-7.7) k/uL Lymphocytes # 0.8 L (1.0-4.8) k/uL D-Dimer (<0.60) mg/L FEU Sodium 128 L (137-145) mmol/L Chloride 96 L (98-107) mmol/L Carbon Dioxide 19 L (22-30) mmol/L BUN 42 H (7-17) mg/dL Creatinine 1.56 H (0.52-1.04) mg/dL Glucose 176 H (74-99) mg/dL POC Glucose (mg/dL) (75-99) mg/dL Plasma Lactic Acid Ronnie (0.7-2.0) mmol/L Total Bilirubin (0.2-1.3) mg/dL AST 13 L (14-36) U/L Alkaline Phosphatase (38-126) U/L C-Reactive Protein (<10.0) mg/L Total Protein 5.1 L (6.3-8.2) g/dL Albumin 2.5 L (3.5-5.0) g/dL Thrombosis Risk Factor Assmnt - DVT/VTE Prophylaxis DVT/VTE Prophylaxis: Pharmacologic Prophylaxis ordered - Choose All That Apply Any of the Below Risk Factors Present?: Yes Each Factor Represents 1 point: Obesity (BMI >25) Other Risk Factors: Yes Each Risk Factor Represents 2 Points: Age 61-74 years Thrombosis Risk Factor Assessment Total Risk Factor Score: 3 Thrombosis Risk Factor Assessment Level: Moderate Risk Assessment and Plan Plan: 1. Right abdominal pain with nausea and vomiting secondary to large abscess in the liver found on CT and signs of sepsis. Consult with Dr. Jose Daniel verduzco. He has recommended meropenem and interventional radiology for drainage of the liver abscess. Eliquis is on hold. 2. Acute kidney injury with chronic kidney disease stage II most likely secondary to dehydration from vomiting and poor oral intake. Avoid nephrotoxic agents. Continue IV fluids of 0.9 normal saline at 100 mL per hour. 3. Hyponatremia most likely secondary to poor oral intake, rule out SIADH urine sodium and osmolality will be ordered serum osmolality ordered. 4. Diabetes mellitus type 2, insulin requiring. Continue Levemir 14 units at bedtime along with NovoLog scale before meals and at bedtime. 5. Paroxysmal Atrial fibrillation currently on eliquis which has been on hold since admission. Continue Lopressor 50 mg 3 times daily, hold for heart rate less than 50. 6. Chronic hypotension. Patient is continued on midodrine 10 mg 3 times daily. Patient's systolic blood pressure runs in the 80s and 90s. 7. 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 Patient subsequently developed nonhealing enterocutaneous fistulas. Continue amino acids. 7. Hypothyroidism continue Synthroid 75 g daily. 8. Gastroesophageal reflux disease and GI prophylaxis. Omeprazole. 9. Atelectasis of the right lung, possible pneumonia. Incentive spirometry added. 10. Recurrent depression. Continue Lexapro 30 mg daily. 11. Hyperlipidemia. Continue atorvastatin. 12. Recent treatment for urinary tract infection. 13. Chronic diastolic heart failure and generalized anasarca. Lasix is on hold continue Aldactone. 14. DVT prophylaxis CODE STATUS: DO NOT RESUSCITATE Patient will be admitted to the hospital for a minimum of 4 night stay. Discharge plan: Return to [facility] and plan of care have been directed as dictated by the signing physician. Ping Jaffe nurse practitioner acting as scribe for signing physician.
--- NOTE | 2018-03-07 15:16 | US ---
EXAMINATION TYPE: US venous doppler duplex LE BI DATE OF EXAM: 03/07/2018 3:01 PM COMPARISON: NONE CLINICAL HISTORY: edema bilat legs. Bilateral leg pain, swelling and edema, patient on blood thinners , exam done portable. SIDE PERFORMED: Bilateral TECHNIQUE: The lower extremity deep venous system is examined utilizing real time linear array sonog gregory with graded compression, doppler sonography and color-flow sonography. VESSELS IMAGED: External Iliac Vein (EIV) Common Femoral Vein Deep Femoral Vein Greater Saphenous Vein * Femoral Vein Popliteal Vein Small Saphenous Vein * Proximal Calf Veins (* superficial vessels) Difficult and limited study due to patient body habitus and patient in pain during exam Right Leg: Visualized portions appear negative for DVT Left Leg: Visualized portions appear negative for DVT, veins appear very small in size, unable to do compression at distal femoral vein due to patient in too much pain. IMPRESSION: No definite evidence for DVT at this time. Limited evaluation of the left lower extremity .
[2018-03-07 17:33] LABS: Glucose,Whole Blood 202 mg/dL (75-99)
[2018-03-07 20:10] LABS: Hemoglobin A1C 8.8 % (4.0-6.0)
[2018-03-07] MEDS: MEROPENEM 1 GM in SODIUM CHLORIDE 0.9% 100 ML IVPB SCH (20:34)
[2018-03-07] MEDS: SPIRONOLACTONE 25 MG TAB PO SCH ×2 (20:34)
[2018-03-07] MEDS: HYDROcodone/APAP 7.5-325MG 1 EACH TAB PO PRN (20:35)
[2018-03-07 20:36] LABS: Glucose,Whole Blood 221 mg/dL (75-99)
[2018-03-07] MEDS: HEPARIN SODIUM,PORCINE 5,000 UNIT/ML 1 ML VIAL SQ SCH (20:46)
[2018-03-07] MEDS: INSULIN DETEMIR 100 UNIT/ML 10 ML VIAL SQ SCH (21:05)
[2018-03-07] MEDS ORDERED: hydrOXYzine PAMOATE 25 MG CAP PO PRN (21:54)
[2018-03-07] MEDS ORDERED: ALPRAZolam 0.25 MG TAB PO PRN (21:55)
--- NOTE | 2018-03-07 22:05 | P.CON ---
Consult Note - . Consult date: 03/07/18 Assessment/Plan:: This is a 62-year-old morbidly obese female patient known to ID service as she was seen in August 2017 in the wound center for ulcers to the abdominal wall. She resides at [facility] for the past year and a half, wheelchair -bound. She gives history of 5 weeks of shortness of breath, nausea, vomiting, cough and right-sided abdominal pain. She was ordered for an outpatient CAT scan of the abdomen and pelvis but on the day she was supposed to come in she was feeling dizzy whenever she sat up in the van was late and she can set up any longer and right insisted on going back to her room. She did have a previous CAT scan of the abdomen and pelvis done on 10/06/2017 that didn't show increased size in perihepatic fluid collection. No evidence of liver and small involvement. 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 Patient does have ileostomy in place which is usual liquid output and she denies any change in volume. At [facility], her blood pressure was 88/60, pulse 98, temperature 97.4 and pulse ox 90% on room air. Patient presented to [facility] with the above complaints. White count was 19.2, sodium 123, chloride 88, BUN 47 creatinine 1.8 blood sugar was 227 total bilirubin 1.4, alkaline phosphatase 167, CRP 157.8. Amylase and lipase were normal. Chest x-ray showed no acute cardio pulmonary disease. KUB was non-acute findings. D-dimer was elevated 1.41. She underwent a VQ scan that showed low probability for pulmonary embolism and no pulmonary consolidation. CAT scan of the abdomen and pelvis without contrast showed a large abscess within the liver which appears new when compared to scan on 2016. There is no small right pleural effusion and basilar infiltrate compared to old exam. Patient was recently treated for a urinary tract infection with Levaquin and was started on March 05 she denies having any urinary symptoms no pain or burning with urination. Urine culture returned greater than 100,000 colonies of Enterobacter aerogenes. Patient was started on Levaquin, Flagyl and Zosyn and [facility] floor. Patient states that her nausea is improved but she continues to have shortness of breath even at rest. She continues to have some mild discomfort to the right upper quadrant but not severe pain. She does complain of increased pain to the right upper quadrant with deep breathing. She states she is cold all the time but did not really have fever or chills. Please see the consult note is dictated by nurse practitioner Ping Riccikristen. The patient's evaluation as discussed with the attending physician. Once anticoagulation has waned she will go for a CT-guided aspiration of her very large abscess of the liver. She'll be sent for cultures as well as cytology. Antibiotic therapy with meropenem and is utilized. She does not have a history of prior MRSA. If the abscess culture reveals klebsiella within need ophthalmology evaluation, given the predilection in this situation for endophthalmitis to also occur.
[2018-03-08] MEDS: LEVOTHYROXINE 75 MCG TAB PO SCH (05:49)
[2018-03-08] MEDS: PANTOPRAZOLE 40 MG TABLET PO SCH (05:50)
[2018-03-08] MEDS: METOPROLOL TARTRATE 50 MG TAB PO SCH ×3 (05:50→21:05)
[2018-03-08] MEDS: SODIUM CHLORIDE 0.9% 1,000 ML IV SCH ×3 (05:50→21:08)
[2018-03-08 06:53] LABS: Glucose,Whole Blood 135 mg/dL (75-99)
[2018-03-08] MEDS: INSULIN ASPART 100 UNIT/ML 1 ML 10 ML VIAL SQ SCH ×4 (07:00→22:15)
[2018-03-08] MEDS: MEROPENEM 1 GM in SODIUM CHLORIDE 0.9% 100 ML IVPB SCH ×2 (08:23→21:07)
[2018-03-08 08:59] LABS: HCT 33.2 % (34.0-46.0); HGB 10.7 gm/dL (11.4-16.0); Hypochromasia Slight; MCH 26.5 pg (25.0-35.0); MCHC 32.2 g/dL (31.0-37.0); MCV 82.4 fL (80.0-100.0); Mean Platelet Volume 8.1; Platelet Count 232 k/uL (150-450); RBC 4.02 m/uL (3.80-5.40); RDW 15.2 % (11.5-15.5); WBC 16.6 k/uL (3.8-10.6)
[2018-03-08 09:16] LABS: Calcium 8.5 mg/dL (8.4-10.2)
[2018-03-08 11:18] LABS: Glucose,Whole Blood 104 mg/dL (75-99)
[2018-03-08 11:27] VITALS: BMI 45.3
[2018-03-08] MEDS: MIDODRINE 5 MG TAB PO SCH ×3 (12:47→21:05)
[2018-03-08] MEDS: NYSTATIN 100,000 UNIT/GM POWD 15 GM TOPICAL SCH ×2 (12:48→21:08)
[2018-03-08] MEDS: ESCITALOPRAM 10 MG TAB PO SCH (15:00)
[2018-03-08] MEDS: MAGNESIUM OXIDE 400 MG TAB PO SCH ×2 (15:00→21:07)
[2018-03-08] MEDS: HEPARIN SODIUM,PORCINE 5,000 UNIT/ML 1 ML VIAL SQ SCH ×2 (15:00→21:06)
[2018-03-08] MEDS: HYDROcodone/APAP 7.5-325MG 1 EACH TAB PO PRN (15:09)
--- NOTE | 2018-03-08 15:16 | P.PN ---
Subjective Progress Note Date: 03/08/18 This is a 62-year-old female patient of Dr. Powell who resides at [facility] for the past year and a half, wheelchair-bound. She gives history of 5 weeks of shortness of breath, nausea, vomiting, cough and right-sided abdominal pain. She was ordered for an outpatient CAT scan of the abdomen and pelvis but on the day she was supposed to come in she was feeling dizzy whenever she sat up in the van was late and she can set up any longer and right insisted on going back to her room. She did have a previous CAT scan of the abdomen and pelvis done on 10/06/2017 that didn't show increased size in perihepatic fluid collection. No evidence of liver and small involvement. 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 Patient does have ileostomy in place which is usual liquid output and she denies any change in volume. At [facility], her blood pressure was 88/60, pulse 98, temperature 97.4 and pulse ox 90% on room air. Patient presented to [facility] with the above complaints. White count was 19.2, sodium 123 , chloride 88, BUN 47 creatinine 1.8 blood sugar was 227 total bilirubin 1.4, alkaline phosphatase 167, CRP 157.8. Amylase and lipase were normal. Chest x- ray showed no acute cardio pulmonary disease. KUB was non-acute findings. D- dimer was elevated 1.41. She underwent a VQ scan that showed low probability for pulmonary embolism and no pulmonary consolidation. CAT scan of the abdomen and pelvis without contrast showed a large abscess within the liver which appears new when compared to scan on 10/06/2017. There is no small right pleural effusion and basilar infiltrate compared to old exam. Patient was recently treated for a urinary tract infection with Levaquin and was started on March 05 she denies having any urinary symptoms no pain or burning with urination. Urine culture returned greater than 100,000 colonies of Enterobacter aerogenes. Patient was started on Levaquin, Flagyl and Zosyn [facility]. Consult with Dr. Jose Daniel farmer. Patient has history of treatment at [facility] with Dr. Yee. She had a strangulated ventral hernia and underwent exploratory laparotomy and ileostomy with right hemicolectomy 12/19/2016 with ischemic bowel found. She had a wound VAC placed and subsequently a secondary closure on 12/12/2016. She was diagnosed with a Staphylococcus epidermidis bacteremia possibly related to a PICC line and underwent IV antibiotics with daptomycin by subsequent thrombosis the left arm/axillary. She went to [facility] with TPN and IV antibiotics and was subsequently discharged to [facility]. 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 03/08: Pedis duplex was negative for DVT bilaterally of the lower extremities. Patient is having liver biopsy done today. White count is currently 16.6, hemoglobin 10.7, sodium 129, BUN 34 and creatinine 1.3. Objective - Vital Signs Vital signs: Vital Signs Temp 97.4 F L 03/08/18 07:02 Pulse 94 03/08/18 07:02 Resp 16 03/08/18 07:02 BP 98/57 03/08/18 07:02 Pulse Ox 100 03/08/18 07:02 Intake & Output 03/07/18 03/08/18 03/08/18 18:59 06:59 18:59 Intake Total 1150 Output Total 275 Balance 1150 -275 Intake: IV 950 Meropenem 1 gm In Sodium 100 Chloride 0.9% 100 ml @ 200 mls/hr IVPB Q12HR YAS Rx#:[id number] Piperacillin-Tazobactam 3 50 .375 gm In Dextrose/Water 1 50ml.bag @ 12.5 mls/hr IVPB Q8HR YAS Rx#: [id number] Sodium Chloride 0.9% 1, 800 000 ml @ 100 mls/hr IV . Q10H YAS Rx#:[id number] Oral 200 Output: Stool 275 Other: Voiding Method Diaper Diaper Incontinent Incontinent # Voids 1 - Exam Gen: This is a morbidly obese 62-year-old female. She is in bed with head of the bed up. She appears to be comfortable and in no acute distress. No respiratory distress is noted. HEENT: Head is atraumatic, normocephalic. Pupils equal, round. Sclerae is anicteric. Mucous members of the mouth are moist. No thrush. Dentition is in poor order with multiple cracked teeth and caries. NECK: Supple. No JVD. No lymphadenopathy. No thyromegaly. LUNGS: Clear to auscultation. No wheezes or rhonchi. Diminished on the right side. No intercostal retractions. HEART: Regular rate and rhythm. No murmur. ABDOMEN: Morbidly obese. Soft. Bowel sounds are present. Right upper quadrant mass palpable with noted tenderness. Very large open ileostomy to the mid abdomen with liquid light brown stool. No redness under abdominal folds. No suprapubic tenderness. EXTREMITIES: +1 pedal edema bilaterally. No calf tenderness. Dorsalis pedis weak bilaterally. NEUROLOGICAL: Patient is awake, alert and oriented x3. Cranial nerves 2 through 12 are grossly intact. - Labs CBC & Chem 7: 03/08/18 08:33 03/08/18 08:33 Labs: Abnormal Lab Results - Last 24 Hours (Table) 03/07/18 03/07/18 03/07/18 Range/Units 07:59 07:59 10:56 WBC (3.8-10.6) k/uL Hgb (11.4-16.0) gm/dL Hct (34.0-46.0) % INR 1.2 H (<1.2) Sodium (137-145) mmol/L Chloride (98-107) mmol/L Carbon Dioxide (22-30) mmol/L BUN (7-17) mg/dL Creatinine (0.52-1.04) mg/dL Glucose (74-99) mg/dL POC Glucose (mg/dL) (75-99) mg/dL Hemoglobin A1c 8.8 H (4.0-6.0) % Prealbumin <5.0 L (18.0-42.0) mg/dL Ur Random Sodium (30-90) mmol/L 03/07/18 03/07/18 03/07/18 Range/Units 11:47 16:45 17:23 WBC (3.8-10.6) k/uL Hgb (11.4-16.0) gm/dL Hct (34.0-46.0) % INR (<1.2) Sodium (137-145) mmol/L Chloride (98-107) mmol/L Carbon Dioxide (22-30) mmol/L BUN (7-17) mg/dL Creatinine (0.52-1.04) mg/dL Glucose (74-99) mg/dL POC Glucose (mg/dL) 177 H 202 H (75-99) mg/dL Hemoglobin A1c (4.0-6.0) % Prealbumin (18.0-42.0) mg/dL Ur Random Sodium <5 L (30-90) mmol/L 03/07/18 03/08/18 03/08/18 Range/Units 20:34 06:50 08:33 WBC 16.6 H (3.8-10.6) k/uL Hgb 10.7 L (11.4-16.0) gm/dL Hct 33.2 L (34.0-46.0) % INR (<1.2) Sodium (137-145) mmol/L Chloride (98-107) mmol/L Carbon Dioxide (22-30) mmol/L BUN (7-17) mg/dL Creatinine (0.52-1.04) mg/dL Glucose (74-99) mg/dL POC Glucose (mg/dL) 221 H 135 H (75-99) mg/dL Hemoglobin A1c (4.0-6.0) % Prealbumin (18.0-42.0) mg/dL Ur Random Sodium (30-90) mmol/L 03/08/18 Range/Units 08:33 WBC (3.8-10.6) k/uL Hgb (11.4-16.0) gm/dL Hct (34.0-46.0) % INR (<1.2) Sodium 129 L (137-145) mmol/L Chloride 97 L (98-107) mmol/L Carbon Dioxide 20 L (22-30) mmol/L BUN 34 H (7-17) mg/dL Creatinine 1.30 H (0.52-1.04) mg/dL Glucose 121 H (74-99) mg/dL POC Glucose (mg/dL) (75-99) mg/dL Hemoglobin A1c (4.0-6.0) % Prealbumin (18.0-42.0) mg/dL Ur Random Sodium (30-90) mmol/L Microbiology - Last 24 Hours (Table) 03/06/18 19:11 Blood Culture - Preliminary Blood No Growth after 24 hours Assessment and Plan Plan: 1. Right abdominal pain with nausea and vomiting secondary to large abscess in the liver found on CT and signs of sepsis. Consult with Dr. Jose Daniel verduzco. He has recommended meropenem and interventional radiology for drainage of the liver abscess. Eliquis is on hold. 2. Acute kidney injury with chronic kidney disease stage II most likely secondary to dehydration from vomiting and poor oral intake. Avoid nephrotoxic agents. Continue IV fluids of 0.9 normal saline at 100 mL per hour. 3. Hyponatremia most likely secondary to poor oral intake, rule out SIADH urine sodium and osmolality will be ordered serum osmolality ordered. 4. Diabetes mellitus type 2, insulin requiring. Continue Levemir 14 units at bedtime along with NovoLog scale before meals and at bedtime. 5. Paroxysmal Atrial fibrillation currently on eliquis which has been on hold since admission. Continue Lopressor 50 mg 3 times daily, hold for heart rate less than 50. 6. Chronic hypotension. Patient is continued on midodrine 10 mg 3 times daily. Patient's systolic blood pressure runs in the 80s and 90s. 7. 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 Patient subsequently developed nonhealing enterocutaneous fistulas. Continue amino acids. 7. Hypothyroidism continue Synthroid 75 g daily. 8. Gastroesophageal reflux disease and GI prophylaxis. Omeprazole. 9. Atelectasis of the right lung, possible pneumonia. Incentive spirometry added. 10. Recurrent depression. Continue Lexapro 30 mg daily. 11. Hyperlipidemia. Continue atorvastatin. 12. Recent treatment for urinary tract infection. 13. Chronic diastolic heart failure and generalized anasarca. Lasix is on hold continue Aldactone. 14. DVT prophylaxis CODE STATUS: DO NOT RESUSCITATE Discharge plan: Return to [facility] Impression and plan of care have been directed as dictated by the signing physician. Ping Jaffe nurse practitioner acting as scribe for signing physician.
--- NOTE | 2018-03-08 15:35 | CT ---
EXAMINATION TYPE: CT guided abscess drainage DATE OF EXAM: 03/08/2018 COMPARISON: NONE HISTORY: Abscess drainage CT DLP: 1424 mGycm The procedure is discussed with the patient, the risks, complications, benefits and alternatives, wer e discussed and any questions were answered. Informed consent was obtained. The patient is placed s upine on the CT table, prepped and draped in the usual sterile fashion. Utilizing a 22-gauge Chiba needle access into the right liver mass or abscess was achieved and there is placement of a O.018 guidewire. Conversion to open 035 system and serial dilation [address] acement 8 Polish drainage catheter. Approximately 400 cc of purulent material was aspirated. Sample s ent to pathology for analysis. All elements of maximal barrier and sterile technique were utilized. The patient remained stable thr oughout the procedure with no immediate postprocedural complication. IMPRESSION: 1. Successful CT guided drainage catheter insertion into hepatic abscess.
[2018-03-08 17:16] LABS: Glucose,Whole Blood 104 mg/dL (75-99)
[2018-03-08] MEDS: ATORVASTATIN 10 MG TAB PO SCH (21:06)
[2018-03-08] MEDS: SPIRONOLACTONE 25 MG TAB PO SCH (21:07)
--- NOTE | 2018-03-08 21:16 | P.PN ---
Subjective Progress Note Date: 03/08/18 This is a 62-year-old morbidly obese female patient known to ID service as she was seen in August 2017 in the wound center for ulcers to the abdominal wall. She resides at [facility] for the past year and a half, wheelchair -bound. She gives history of 5 weeks of shortness of breath, nausea, vomiting, cough and right-sided abdominal pain. She was ordered for an outpatient CAT scan of the abdomen and pelvis but on the day she was supposed to come in she was feeling dizzy whenever she sat up in the van was late and she can set up any longer and right insisted on going back to her room. She did have a previous CAT scan of the abdomen and pelvis done on 10/06/2017 that didn't show increased size in perihepatic fluid collection. No evidence of liver and small involvement. 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 Patient does have ileostomy in place which is usual liquid output and she denies any change in volume. At [facility], her blood pressure was 88/60, pulse 98, temperature 97.4 and pulse ox 90% on room air. Patient presented to [facility] with the above complaints. White count was 19.2, sodium 123, chloride 88, BUN 47 creatinine 1.8 blood sugar was 227 total bilirubin 1.4, alkaline phosphatase 167, CRP 157.8. Amylase and lipase were normal. Chest x-ray showed no acute cardio pulmonary disease. KUB was non-acute findings. D-dimer was elevated 1.41. She underwent a VQ scan that showed low probability for pulmonary embolism and no pulmonary consolidation. CAT scan of the abdomen and pelvis without contrast showed a large abscess within the liver which appears new when compared to scan on 2016. There is no small right pleural effusion and basilar infiltrate compared to old exam. Patient was recently treated for a urinary tract infection with Levaquin and was started on March 05 she denies having any urinary symptoms no pain or burning with urination. Urine culture returned greater than 100,000 colonies of Enterobacter aerogenes. Patient was started on Levaquin, Flagyl and Zosyn [facility] Patient states that her nausea is improved but she continues to have shortness of breath even at rest. She continues to have some mild discomfort to the right upper quadrant but not severe pain. She does complain of increased pain to the right upper quadrant with deep breathing. She states she is cold all the time but did not really have fever or chills. 03/08/2018 the patient is status post a percutaneous drainage of a liver abscess. The case is discussed with the interventional radiologist. Approximate 500 mL of purulent material was removed from the liver and follow- up scanning did not appear to have any determination of size of the abnormality of the liver. The patient himself is not feeling poorly this point in time. Not having high-grade fevers or chills. Objective - Vital Signs Vital signs: Vital Signs Temp 97.8 F 03/08/18 14:50 Pulse 107 H 03/08/18 14:50 Resp 14 03/08/18 14:50 BP 98/57 03/08/18 14:50 Pulse Ox 98 03/08/18 14:50 Intake & Output 03/08/18 03/08/18 03/09/18 06:59 18:59 06:59 Output Total 275 450 Balance -275 -450 Weight 131.134 kg Output: Stool 275 450 Other: Voiding Method Diaper Incontinent # Voids 1 1 - Exam Gen: This is a morbidly obese 62-year-old female. She is in bed with head of the bed up. She appears to be comfortable and in no acute distress. No respiratory distress is noted. HEENT: Head is atraumatic, normocephalic. Pupils equal, round. Sclerae is anicteric. Mucous members of the mouth are moist. No thrush. Dentition is in poor order with multiple cracked teeth and caries. NECK: Supple. No JVD. No lymphadenopathy. No thyromegaly. LUNGS: Clear to auscultation. No wheezes or rhonchi. Diminished on the right side. No intercostal retractions. HEART: Regular rate and rhythm. No murmur. ABDOMEN: Morbidly obese. Soft. Bowel sounds are present. Right upper quadrant mass palpable with noted tenderness. Ileostomy to the mid abdomen with liquid light brown stool. No redness under abdominal folds. No suprapubic tenderness. EXTREMITIES: +1 pedal edema bilaterally. No calf tenderness. Dorsalis pedis weak bilaterally. NEUROLOGICAL: Patient is awake, alert and oriented x3 - Labs CBC & Chem 7: 03/08/18 08:33 03/08/18 08:33 Labs: Abnormal Lab Results - Last 24 Hours (Table) 03/07/18 03/07/18 03/08/18 Range/Units 07:59 07:59 06:50 WBC (3.8-10.6) k/uL Hgb (11.4-16.0) gm/dL Hct (34.0-46.0) % Sodium (137-145) mmol/L Chloride (98-107) mmol/L Carbon Dioxide (22-30) mmol/L BUN (7-17) mg/dL Creatinine (0.52-1.04) mg/dL Glucose (74-99) mg/dL POC Glucose (mg/dL) 135 H (75-99) mg/dL Hemoglobin A1c 8.8 H (4.0-6.0) % Prealbumin <5.0 L (18.0-42.0) mg/dL 03/08/18 03/08/18 03/08/18 Range/Units 08:33 08:33 11:17 WBC 16.6 H (3.8-10.6) k/uL Hgb 10.7 L (11.4-16.0) gm/dL Hct 33.2 L (34.0-46.0) % Sodium 129 L (137-145) mmol/L Chloride 97 L (98-107) mmol/L Carbon Dioxide 20 L (22-30) mmol/L BUN 34 H (7-17) mg/dL Creatinine 1.30 H (0.52-1.04) mg/dL Glucose 121 H (74-99) mg/dL POC Glucose (mg/dL) 104 H (75-99) mg/dL Hemoglobin A1c (4.0-6.0) % Prealbumin (18.0-42.0) mg/dL 03/08/18 Range/Units 17:10 WBC (3.8-10.6) k/uL Hgb (11.4-16.0) gm/dL Hct (34.0-46.0) % Sodium (137-145) mmol/L Chloride (98-107) mmol/L Carbon Dioxide (22-30) mmol/L BUN (7-17) mg/dL Creatinine (0.52-1.04) mg/dL Glucose (74-99) mg/dL POC Glucose (mg/dL) 104 H (75-99) mg/dL Hemoglobin A1c (4.0-6.0) % Prealbumin (18.0-42.0) mg/dL Microbiology - Last 24 Hours (Table) 03/06/18 19:11 Blood Culture - Preliminary Blood No Growth after 24 hours Assessment and Plan (1) Liver abscess Narrative/Plan: The patient's evaluation as discussed with the attending physician. Once anticoagulation has waned she will go for a CT-guided aspiration of her very large abscess of the liver. She'll be sent for cultures as well as cytology. Antibiotic therapy with meropenem and is utilized. She does not have a history of prior MRSA. If the abscess culture reveals klebsiella within need ophthalmology evaluation, given the predilection in this situation for endophthalmitis to also occur. 03/08/2018 the patient has had the aspiration of the very large liver abscess. Despite 500 mL being removed from the abscess and did not change significantly on the computed tomography scan that was being performed at the aspiration. At this point in time given the extremely large size of the abscess and the patient is a very complex history she would likely need to be transferred to her surgeon at [facility] for hepatology surgery consult and that she may need an actual surgical debridement of her liver for this extensive disease process. Antibiotic therapy continues cultures are in process. Current Visit: Yes Status: Acute Code(s): K75.0 - ABSCESS OF LIVER SNOMED Code(s): 41808311
[2018-03-08 22:04] LABS: Glucose,Whole Blood 177 mg/dL (75-99)
[2018-03-08] MEDS: INSULIN DETEMIR 100 UNIT/ML 10 ML VIAL SQ SCH (22:18)
[2018-03-09] MEDS: HYDROcodone/APAP 7.5-325MG 1 EACH TAB PO PRN (06:10)
[2018-03-09] MEDS: LEVOTHYROXINE 75 MCG TAB PO SCH (06:11)
[2018-03-09] MEDS: PANTOPRAZOLE 40 MG TABLET PO SCH (06:11)
[2018-03-09] MEDS: METOPROLOL TARTRATE 50 MG TAB PO SCH ×2 (06:11→14:09)
[2018-03-09 07:10] VITALS: TEMP 97.1
[2018-03-09 07:24] LABS: Glucose,Whole Blood 209 mg/dL (75-99)
[2018-03-09] MEDS: INSULIN ASPART 100 UNIT/ML 1 ML 10 ML VIAL SQ SCH ×2 (07:46→13:10)
[2018-03-09] MEDS: HEPARIN SODIUM,PORCINE 5,000 UNIT/ML 1 ML VIAL SQ SCH (07:46)
[2018-03-09] MEDS: MAGNESIUM OXIDE 400 MG TAB PO SCH (07:47)
[2018-03-09] MEDS: MIDODRINE 5 MG TAB PO SCH ×2 (07:47→13:21)
[2018-03-09] MEDS: ESCITALOPRAM 10 MG TAB PO SCH (07:47)
[2018-03-09] MEDS: MEROPENEM 1 GM in SODIUM CHLORIDE 0.9% 100 ML IVPB SCH (07:47)
[2018-03-09] MEDS: NYSTATIN 100,000 UNIT/GM POWD 15 GM TOPICAL SCH (07:47)
[2018-03-09] MEDS: SODIUM CHLORIDE 0.9% 1,000 ML IV SCH (08:25)
[2018-03-09 10:20] VITALS: RESP 16
--- NOTE | 2018-03-09 10:30 | P.DS ---
Providers Date of admission: 03/06/18 22:04 Expected date of discharge: 03/09/18 Attending physician: Angela Powell Consults: 03/06/18 22:04 Consult Physician Stat Consulting Provider: Eduin Sky Reason/Comments: Liver abscess Do you want consulting provider notified?: Yes Primary care physician: Angela Powell [place] [facility] Course: This is a 62-year-old female patient of Dr. Powell who resides at [facility] for the past year and a half, wheelchair-bound. She gives history of 5 weeks of shortness of breath, nausea, vomiting, cough and right-sided abdominal pain. She was ordered for an outpatient CAT scan of the abdomen and pelvis but on the day she was supposed to come in she was feeling dizzy whenever she sat up in the van was late and she can set up any longer and right insisted on going back to her room. She did have a previous CAT scan of the abdomen and pelvis done on 10/06/2017 that didn't show increased size in perihepatic fluid collection. No evidence of liver and small involvement. 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 Patient does have ileostomy in place which is usual liquid output and she denies any change in volume. At [facility], her blood pressure was 88/60, pulse 98, temperature 97.4 and pulse ox 90% on room air. Patient presented to [facility] with the above complaints. White count was 19.2, sodium 123 , chloride 88, BUN 47 creatinine 1.8 blood sugar was 227 total bilirubin 1.4, alkaline phosphatase 167, CRP 157.8. Amylase and lipase were normal. Chest x- ray showed no acute cardio pulmonary disease. KUB was non-acute findings. D- dimer was elevated 1.41. She underwent a VQ scan that showed low probability for pulmonary embolism and no pulmonary consolidation. CAT scan of the abdomen and pelvis without contrast showed a large abscess within the liver which appears new when compared to scan on 10/06/2017. There is no small right pleural effusion and basilar infiltrate compared to old exam. Patient was recently treated for a urinary tract infection with Levaquin and was started on March 05 she denies having any urinary symptoms no pain or burning with urination. Urine culture returned greater than 100,000 colonies of Enterobacter aerogenes. Patient was started on Levaquin, Flagyl and Zosyn and admitted to the [facility] floor. Consult with Dr. Sky placed. Patient has history of treatment at [facility] with Dr. Yee. She had a strangulated ventral hernia and underwent exploratory laparotomy and ileostomy with right hemicolectomy 12/19/2016 with ischemic bowel found. She had a wound VAC placed and subsequently a secondary closure on 12/12/2016. She was diagnosed with a Staphylococcus epidermidis bacteremia possibly related to a PICC line and underwent IV antibiotics with daptomycin by subsequent thrombosis the left arm/axillary. She went to [facility] with TPN and IV antibiotics and was subsequently discharged to [facility]. 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 03/08: Lower extremity duplex was negative for DVT bilaterally of the lower extremities. Patient is having liver biopsy done today. White count is currently 16.6, hemoglobin 10.7, sodium 129, BUN 34 and creatinine 1.3. 03/09: Patient underwent successful CT-guided drainage catheter insertion in the hepatic abscess with return of 400 mL of purulent material. Cultures and pathology are pending. She has been afebrile. Dr. Sky was recommended transfer to surgery at [facility] for hepatology surgeon consult and may need actual surgical debridement of her liver for this extensive disease process. Patient is agreeable for transfer. Case management updated and patient will be transferred once all arrangements have been completed. Patient is continued on meropenem. Discharge diagnoses: 1. Right abdominal pain with nausea and vomiting secondary to large abscess in the liver found on CT and signs of sepsis. 2. Acute kidney injury with chronic kidney disease stage II most likely secondary to dehydration from vomiting and poor oral intake. 3. Hyponatremia secondary to poor oral intake 4. Diabetes mellitus type 2, insulin requiring. 5. Paroxysmal Atrial fibrillation currently on eliquis which has been on hold since admission. 6. Chronic hypotension. 7. 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 Patient subsequently developed nonhealing enterocutaneous fistulas. 7. Hypothyroidism 8. Gastroesophageal reflux disease and GI prophylaxis. 9. Atelectasis of the right lung 10. Recurrent depression. 11. Hyperlipidemia. 12. Recent treatment for urinary tract infection. 13. Chronic diastolic heart failure and generalized anasarca. Discharge plan: Eventually return to [facility] Impression and plan of care have been directed as dictated by the signing physician. Ping Jaffe nurse practitioner acting as scribe for signing physician. Patient Condition at Discharge: Stable Plan - Discharge Summary Discharge Rx Participant: No New Discharge Prescriptions: No Action Apixaban [Eliquis] 5 mg PO BID Escitalopram [Lexapro] 30 mg PO DAILY Metoprolol Tartrate [Lopressor] 50 mg PO TID@,, Furosemide [Lasix] 40 mg PO DIRECTED HYDROcodone/APAP 7.5-325MG [[place] 7.5-325] 1 tab PO Q6HR PRN PRN Reason: Pain Ondansetron [Zofran] 4 mg PO Q4H PRN PRN Reason: Nausea Levothyroxine Sodium [Synthroid] 75 mcg PO DAILY@06 Atorvastatin [Lipitor] 10 mg PO HS Midodrine HCl [ProAmatine] 10 mg PO TID@,, guaiFENesin [guaiFENesin Oral Solution] 200 mg PO Q4H PRN PRN Reason: Cough Insulin Aspart [NovoLOG Flexpen] See Protocol SQ AC-TID@,, Magnesium Oxide [Mag-Ox] 400 mg PO BID Amino Acids/Protein Hydrolys [Pro-Stat Supplement] 30 ml PO DAILY Omeprazole 20 mg PO DAILY@06 Levofloxacin [Levaquin] 500 mg PO HS Insulin Glargine [Lantus] 14 unit SQ HS Spironolactone [Aldactone] 25 mg PO HS House Antifungal Powder 1 applic TOPICAL BID Discharge Medication List Apixaban [Eliquis] 5 mg PO BID 02/04/17 [History] Escitalopram [Lexapro] 30 mg PO DAILY 02/04/17 [History] Metoprolol Tartrate [Lopressor] 50 mg PO TID@,,02/22/17 [History] Furosemide [Lasix] 40 mg PO DIRECTED 04/04/17 [History] Atorvastatin [Lipitor] 10 mg PO HS 09/16/17 [History] HYDROcodone/APAP 7.5-325MG [[place] 7.5-325] 1 tab PO Q6HR PRN 09/16/17 [History] Levothyroxine Sodium [Synthroid] 75 mcg PO DAILY@0600 09/16/17 [History] Midodrine HCl [ProAmatine] 10 mg PO TID@09,13,21 09/16/17 [History] Ondansetron [Zofran] 4 mg PO Q4H PRN 09/16/17 [History] Amino Acids/Protein Hydrolys [Pro-Stat Supplement] 30 ml PO DAILY 03/06/18 [ History] House Antifungal Powder 1 applic TOPICAL BID 03/06/18 [History] Insulin Aspart [NovoLOG Flexpen] See Protocol SQ AC-TID@,,03/06/18 [ History] Insulin Glargine [Lantus] 14 unit SQ HS 03/06/18 [History] Levofloxacin [Levaquin] 500 mg PO HS 03/06/18 [History] Magnesium Oxide [Mag-Ox] 400 mg PO BID 03/06/18 [History] Omeprazole 20 mg PO DAILY@0600 03/06/18 [History] Spironolactone [Aldactone] 25 mg PO HS 03/06/18 [History] guaiFENesin [guaiFENesin Oral Solution] 200 mg PO Q4H PRN 03/06/18 [History] Follow up Appointment(s)/Referral(s): Angela Powell MD [Primary Care Provider] - 1-2 days
[2018-03-09 11:38] LABS: HCT 30.5 % (34.0-46.0); MCH 26.7 pg (25.0-35.0); MCHC 32.8 g/dL (31.0-37.0); MCV 81.4 fL (80.0-100.0); Mean Platelet Volume 8.1; Platelet Count 232 k/uL (150-450); Poikilocytosis Slight; RBC 3.75 m/uL (3.80-5.40); RDW 15.2 % (11.5-15.5); WBC 12.9 k/uL (3.8-10.6)
[2018-03-09 11:50] LABS: Calcium 8.2 mg/dL (8.4-10.2); Potassium 3.7 mmol/L (3.5-5.1); Total Bilirubin 0.4 mg/dL (0.2-1.3); Total Protein 4.4 g/dL (6.3-8.2)
[2018-03-09 12:25] LABS: Glucose,Whole Blood 120 mg/dL (75-99)
[2018-03-09 13:20] VITALS: BP 76/56; PULSE 85
== END 2018-03-09 15:23 | disposition short-term general hospital (02) | DRG 871 ==
LOC: EC 16:53 → 4MS4W 22:04
PROVIDERS: ADMIT Family Medicine; ATTEND Family Medicine
PROC: 0F913ZX Drainage of Right Lobe Liver, Percutaneous Approach, Diagnostic (ICD-10-PCS; principal; 2018-03-08)
DX: A41.9 Sepsis, unspecified organism (principal); K75.0 Abscess of liver; J18.9 Pneumonia, unspecified organism; K31.6 Fistula of stomach and duodenum; N17.9 Acute kidney failure, unspecified; I13.0 Hypertensive heart and chronic kidney disease with heart failure and stage 1 through stage 4 chronic kidney disease, or unspecified chronic kidney disease; F33.9 Major depressive disorder, recurrent, unspecified; Z68.42 Body mass index [BMI] 45.0-49.9, adult; E87.1 Hypo-osmolality and hyponatremia; J98.11 Atelectasis; I50.32 Chronic diastolic (congestive) heart failure; N39.0 Urinary tract infection, site not specified; E66.01 Morbid (severe) obesity due to excess calories; I95.89 Other hypotension; E11.22 Type 2 diabetes mellitus with diabetic chronic kidney disease; I48.0 Paroxysmal atrial fibrillation; Z66 Do not resuscitate; E86.0 Dehydration; I25.10 Atherosclerotic heart disease of native coronary artery without angina pectoris; N18.2 Chronic kidney disease, stage 2 (mild); E78.5 Hyperlipidemia, unspecified; K21.9 Gastro-esophageal reflux disease without esophagitis; E89.0 Postprocedural hypothyroidism; F41.9 Anxiety disorder, unspecified; M19.91 Primary osteoarthritis, unspecified site; G47.30 Sleep apnea, unspecified; Z79.01 Long term (current) use of anticoagulants; Z79.4 Long term (current) use of insulin; Z79.890 Hormone replacement therapy; Z79.899 Other long term (current) drug therapy; Z71.3 Dietary counseling and surveillance; Z86.718 Personal history of other venous thrombosis and embolism; Z93.2 Ileostomy status; Z90.49 Acquired absence of other specified parts of digestive tract; Z87.440 Personal history of urinary (tract) infections; Z99.3 Dependence on wheelchair; Z82.49 Family history of ischemic heart disease and other diseases of the circulatory system; Z82.0 Family history of epilepsy and other diseases of the nervous system
CPT/HCPCS: 36415; 71045; 74018; 74176; 75989; 77012; 78582; 80048; 80053; 82150; 83036; 83605; 83690; 83930; 84134; 84300; 85025; 85027; 85379; 85610; 86140; 87040; 87070; 87075; 87077; 87186; 87205; 87324; 88173; 88305; 93005; 93970; 96365; 96366; 96368; 99291

== ENCOUNTER 2018-03-15 06:19 | Inpatient (IN) | payer MEDICARE, OTHER ==
[2018-03-15] MEDS ORDERED: LORazepam 2 MG/ML INJ IV STA (06:24)
[2018-03-15 06:45] LABS: Anisocytosis Slight; Basophils % (A) 0 %; Eosinophils # (A) 0.5 k/uL (0-0.7); Eosinophils % (A) 4 %; HCT 35.7 % (34.0-46.0); HGB 11.6 gm/dL (11.4-16.0); Hypochromasia Slight; Lymphocytes # (A) 1.9 k/uL (1.0-4.8); Lymphocytes % (A) 15 %; MCH 26.8 pg (25.0-35.0); MCHC 32.5 g/dL (31.0-37.0); MCV 82.5 fL (80.0-100.0); Mean Platelet Volume 7.5; Monocytes # (A) 0.5 k/uL (0-1.0); Monocytes % (A) 4 %; Neutrophils # (A) 9.2 k/uL (1.3-7.7); Neutrophils % (A) 75 %; Platelet Count 286 k/uL (150-450); Poikilocytosis Slight; RBC 4.33 m/uL (3.80-5.40); RDW 17.2 % (11.5-15.5); WBC 12.3 k/uL (3.8-10.6)
--- NOTE | 2018-03-15 06:51 | ED ---
Neuro HPI - General Source: patient, EMS Mode of arrival: EMS Limitations: altered mental status (Seizure activity) - History of Present Illness Is the patient presenting with stroke symptoms?: No Onset/Timin -: hour(s) Location: speech, right face History of same: No Place: home Severity: moderate On Anticoagulants: Yes Context: sudden onset Treatments Prior to Arrival: none <Malcolm Healy - Last Filed: 03/15/18 06:52> <Shay Montgomery - Last Filed: 03/15/18 08:09> - General Stated Complaint: Neuro Deficits Time Seen by Provider: 03/15/18 06:24 - History of Present Illness Initial Comments: This patient is a 62-year-old woman who [facility]. Starting around 3 AM today, it was noted that the patient was having some twisting of the facial muscles and was having slurred speech. There were a couple of episodes of this, so the patient was transferred here for further evaluation. At arrival, the patient does appear to be having focal seizure and could not give history immediately. (Malcolm Healy) - Related Data Home Medications: Home Medications Medication Instructions Recorded Confirmed Escitalopram [Lexapro] 20 mg PO DAILY 02/04/17 03/15/18 Metoprolol Tartrate [Lopressor] 50 mg PO BID 02/22/17 03/15/18 Atorvastatin [Lipitor] 10 mg PO HS 09/16/17 03/15/18 HYDROcodone/APAP 7.5-325MG [[place] 1 tab PO Q8H PRN 09/16/17 03/15/18 7.5-325] Levothyroxine Sodium [Synthroid] 75 mcg PO DAILY 09/16/17 03/15/18 Midodrine HCl [ProAmatine] 10 mg PO TID 09/16/17 03/15/18 Ondansetron [Zofran] 4 mg PO Q4H PRN 09/16/17 03/15/18 Insulin Aspart [NovoLOG Flexpen] See Protocol SQ AC-TID 03/06/18 03/15/18 Insulin Glargine [Lantus] 14 unit SQ HS 03/06/18 03/15/18 Amitriptyline HCl [Elavil] 10 mg PO DAILY 03/15/18 03/15/18 Apixaban [Eliquis] 5 mg PO BID 03/15/18 03/15/18 Diflorasone Diacetate [Psorcon] 1 applic TOPICAL WE 03/15/18 03/15/18 Diltiazem Cd [Cardizem Cd] 120 mg PO DAILY 03/15/18 03/15/18 Ertapenem [INVanz] 1 gm IVPB Q24H 03/15/18 03/15/18 Furosemide [Lasix] 20 mg PO DAILY 03/15/18 03/15/18 Lidocaine 2% Gel [Xylocaine Jelly 1 applic TOPICAL Q24H PRN 03/15/18 03/15/18 2%] Metolazone [Zaroxolyn] 2.5 mg PO MOWEFR 03/15/18 03/15/18 Omeprazole Magnesium [PriLOSEC OTC] 20 mg PO DAILY 03/15/18 03/15/18 Potassium Chloride ER [K-Dur 20] 20 meq PO TID 03/15/18 03/15/18 Triamcinolone 0.1% Cream [Kenalog] 1 applic TOPICAL TID 03/15/18 03/15/18 Allergies/Adverse Reactions: Allergies Allergy/AdvReac Type Severity Reaction Status Date / Time No Known Allergies Allergy Verified 03/15/18 07:36 Review of Systems ROS Other: All systems not noted in ROS Statement are negative. Limitations: ROS unobtainable due to patients medical condition (Seizure activity) <Malcolm Healy - Last Filed: 03/15/18 06:52> ROS Other: All systems not noted in ROS Statement are negative. <Shay Montgomery - Last Filed: 03/15/18 08:09> ROS Statement: Those systems with pertinent positive or pertinent negative responses have been documented in the HPI. General Exam Limitations: altered mental status General appearance: alert, obese, other (Immediately on arrival patient having what appears to be tonic-clonic seizure.) Head exam: Present: atraumatic, normocephalic Eye exam: Present: PERRL, other (There is gaze deviation to the right.). Absent : scleral icterus, conjunctival injection ENT exam: Present: normal oropharynx Neck exam: Present: normal inspection, full ROM. Absent: tenderness Respiratory exam: Present: normal lung sounds bilaterally. Absent: respiratory distress, wheezes, rales, rhonchi, stridor Cardiovascular Exam: Present: regular rate, normal rhythm, normal heart sounds. Absent: systolic murmur, diastolic murmur, rubs, gallop GI/Abdominal exam: Present: soft. Absent: distended, tenderness, guarding, rebound, mass Extremities exam: Present: normal inspection, normal capillary refill. Absent: pedal edema, calf tenderness Back exam: Present: normal inspection. Absent: CVA tenderness (R), CVA tenderness (L) Neurological exam: Present: altered Skin exam: Present: warm, dry, intact, normal color. Absent: rash <Malcolm Healy - Last Filed: 03/15/18 06:52> Stroke [facility] - EKG Data -: EKG Interpreted by De EKG shows normal: axis (Normal), intervals (Normal), QRS complexes (Low-voltage QRS complexes), ST-T waves (Normal) Rate: tachycardia Interpretation: other (Atrial fibrillation with rate approximately 128 bpm) <Malcolm Healy - Last Filed: 03/15/18 06:52> - Lab Data Result diagrams: 03/15/18 06:31 03/15/18 06:31 <Shay Montgomery - Last Filed: 03/15/18 08:09> - Lab Data Lab Results 03/15/18 03/15/18 03/15/18 Range/Units 06:31 06:31 07:09 WBC 12.3 H (3.8-10.6) k/uL RBC 4.33 (3.80-5.40) m/uL Hgb 11.6 (11.4-16.0) gm/dL Hct 35.7 (34.0-46.0) % MCV 82.5 (80.0-100.0) fL MCH 26.8 (25.0-35.0) pg MCHC 32.5 (31.0-37.0) g/dL RDW 17.2 H (11.5-15.5) % Plt Count 286 (150-450) k/uL Neutrophils % 75 % Lymphocytes % 15 % Monocytes % 4 % Eosinophils % 4 % Basophils % 0 % Neutrophils # 9.2 H (1.3-7.7) k/uL Lymphocytes # 1.9 (1.0-4.8) k/uL Monocytes # 0.5 (0-1.0) k/uL Eosinophils # 0.5 (0-0.7) k/uL Basophils # 0.0 (0-0.2) k/uL Hypochromasia Slight Poikilocytosis Slight Anisocytosis Slight Sodium 133 L (137-145) mmol/L Potassium 4.5 (3.5-5.1) mmol/L Chloride 101 (98-107) mmol/L Carbon Dioxide 23 (22-30) mmol/L Anion Gap 9 mmol/L BUN 17 (7-17) mg/dL Creatinine 0.80 (0.52-1.04) mg/dL Est GFR (CKD-EPI)AfAm >90 (>60 ml/min/1.73 sqM) Est GFR (CKD-EPI)NonAf 80 (>60 ml/min/1.73 sqM) Glucose 151 H (74-99) mg/dL Calcium 8.6 (8.4-10.2) mg/dL Total Bilirubin 0.4 (0.2-1.3) mg/dL AST 13 L (14-36) U/L ALT 22 (9-52) U/L Alkaline Phosphatase 99 (38-126) U/L Total Protein 5.0 L (6.3-8.2) g/dL Albumin 2.4 L (3.5-5.0) g/dL Urine Color Yellow Urine Appearance Cloudy H (Clear) Urine pH 6.0 (5.0-8.0) Ur Specific [place] 1.020 (1.001-1.035) Urine Protein 2+ H (Negative) Urine Glucose (UA) Negative (Negative) Urine Ketones Negative (Negative) Urine Blood Trace H (Negative) Urine Nitrite Negative (Negative) Urine Bilirubin Negative (Negative) Urine Urobilinogen 6.0 (<2.0) mg/dL Ur Leukocyte Esterase Large H (Negative) Urine RBC 3 (0-5) /hpf Urine WBC >182 H (0-5) /hpf Urine WBC Clumps Many H (None) /hpf Ur Squamous Epith Cells 1 (0-4) /hpf Urine Bacteria Rare H (None) /hpf Urine Mucus Rare H (None) /hpf - Medical Decision Making 62 female the ER with development simple partial seizures altered mental state. Continuous urinary tract infection, will admit for treatment of comorbidities as well as neurological observation regarding new onset seizure (Shay Montgomery) Past Medical History Past Medical History: Atrial Fibrillation, Coronary Artery Disease (CAD), Chest Pain / Angina, Heart Failure, Diabetes Mellitus, Deep Vein Thrombosis (DVT), Hypertension, Osteoarthritis (OA), Respiratory Disorder, Skin Disorder, Sleep Apnea/CPAP/BIPAP, Thyroid Disorder, Vascular Disorder Additional Past Medical History / Comment(s): cellulitus, strangulated ventral hernia with necrotic transverse colon and necrotic omentum 12/2016, ileostomy, chronic kidney disease stage II, liver abscess drained, History of Any Multi-Drug Resistant Organisms: MRSA Date of last positivie culture/infection: 2000 Past Surgical History: Cholecystectomy, Hernia Repair, Tonsillectomy Additional Past Surgical History / Comment(s): thyroidectomy, bowel surgery ,picc line placement Past Psychological History: Anxiety, Depression Smoking Status: Never smoker Past Alcohol Use History: None Reported Past Drug Use History: None Reported - Past Family History Sister(s) Family Medical History: Memory Impairment Mother Family Medical History: Unable to Obtain Additional Family Medical History / Comment(s): History of coronary artery disease <Malcolm Healy - Last Filed: 03/15/18 06:52> Course <Malcolm Healy - Last Filed: 03/15/18 06:52> <Shay Montgomery - Last Filed: 03/15/18 08:09> Vital Signs 03/15/18 03/15/18 03/15/18 06:20 06:24 07:17 Temperature 97.1 F L Pulse Rate 132 H 128 H Respiratory 18 18 Rate Blood Pressure 143/64 O2 Sat by Pulse 92 L 100 Oximetry 03/15/18 07:20 Temperature Pulse Rate 124 H Respiratory 20 Rate Blood Pressure 140/83 O2 Sat by Pulse 96 Oximetry - Reevaluation(s) Reevaluation #1: 03/15/18 08:07 Per sign outpatient regarding having smiled simple partial seizures, patient is without issue at this time, we'll start on antiepileptic and admitted for neurological observation (Shay Montgomery) Reevaluation #2: 03/15/18 08:09 CT brain is negative for acute disease (Shay Montgomery) Disposition <Malcolm Healy - Last Filed: 03/15/18 06:52> Is patient prescribed a controlled substance at d/c from ED?: No <Shay Montgomery - Last Filed: 03/15/18 08:09> Clinical Impression: New onset seizure, UTI (urinary tract infection) Disposition: ADMITTED IP TO THIS HOSP Condition: Fair Referrals: Angela Powell MD [Primary Care Provider] - 1-2 days
[2018-03-15 06:55] LABS: ALT 22 U/L (9-52); AST 13 U/L (14-36); Albumin 2.4 g/dL (3.5-5.0); Alkaline Phosphatase 99 U/L (38-126); Anion Gap 9 mmol/L; Blood Urea Nitrogen 17 mg/dL (7-17); Calcium 8.6 mg/dL (8.4-10.2); Carbon Dioxide 23 mmol/L (22-30); Chloride 101 mmol/L (98-107); Glucose 151 mg/dL (74-99); Potassium 4.5 mmol/L (3.5-5.1); Sodium 133 mmol/L (137-145); Total Bilirubin 0.4 mg/dL (0.2-1.3)
--- NOTE | 2018-03-15 07:16 | CT ---
EXAMINATION TYPE: CT brain wo con DATE OF EXAM: 03/15/2018 COMPARISON: None. HISTORY: Facial twitching and droop CT DLP: mGycm Automated exposure control for dose reduction was used. FINDINGS: There is mild cerebral atrophy. There is no mass effect nor midline shift. There is no sign of intrac ranial hemorrhage. The calvarium is intact. The remainder of exam is unremarkable. IMPRESSION: MILD ATROPHY. OTHERWISE NEGATIVE CT SCAN OF THE BRAIN.
[2018-03-15 07:29] LABS: Appearance,Urine Cloudy (Clear); Bacteria,Urine Rare /hpf; Bilirubin,Urine Negative (Negative); Blood,Urine Trace (Negative); Color,Urine Yellow; Glucose,Urine (UA) Negative (Negative); Ketones,Urine Negative (Negative); Leukocyte Esterase,Urine Large (Negative); Mucus,Urine Rare /hpf; Nitrite,Urine Negative (Negative); Protein,Urine 2+ (Negative); RBC,Urine 3 /hpf (0-5); Squamous Epithelial Cell,Urine 1 /hpf (0-4); WBC,Urine >182 /hpf (0-5)
[2018-03-15] MEDS ORDERED: cefTRIAXone 2,000 MG in SODIUM CHLORIDE 0.9% 100 ML IVPB STA (08:05)
[2018-03-15] MEDS ORDERED: SODIUM CHLORIDE 0.9% 1,000 ML IV ONE (08:06)
[2018-03-15] MEDS ORDERED: SODIUM CHLORIDE 0.9% 500 ML IV STA (08:09)
[2018-03-15] MEDS ORDERED: SODIUM CHLORIDE 0.9% 1,000 ML IV STA (08:09)
[2018-03-15] MEDS ORDERED: cefTRIAXone IN SWFI 2,000 MG/20 ML SYRINGE IVP STA (08:10)
[2018-03-15] MEDS ORDERED: levETIRAcetam IV 1,500 MG in SALINE 1 100ML.BAG IVPB STA (08:12)
[2018-03-15] MEDS ORDERED: RX INFO: IV CONTRAST WAS GIVEN 1 EACH MISC MISCELLANE PRN (13:55)
[2018-03-15] MEDS ORDERED: LIDOCAINE 2% GEL 5 ML TUBE TOPICAL PRN (15:32)
--- NOTE | 2018-03-15 15:37 | P.HPIM ---
History of Present Illness H&P Date: 03/15/18 Chief Complaint: Mental status changes This is a 62-year-old female patient of Dr. Powell who resides at [facility] for the past year and a half, wheelchair-bound. Patient has history of treatment at [facility] with Dr. Yee. She had a strangulated ventral hernia and underwent exploratory laparotomy and ileostomy with right hemicolectomy 12/19/2016 with ischemic bowel found. She had a wound VAC placed and subsequently a secondary closure on 12/12/2016. She was diagnosed with a Staphylococcus epidermidis bacteremia possibly related to a PICC line and underwent IV antibiotics with daptomycin by subsequent thrombosis the left arm/ axillary. She went to [facility] with TPN and IV antibiotics and was subsequently discharged to [facility]. 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 Patient was recently hospitalized from March 06 through March 09 for hepatic abscess and underwent successful CT-guided drainage catheter insertion in the hepatic abscess with return of 400 mL of purulent material. Cultures and pathology are pending. She has been afebrile. Dr. Sky was recommended transfer to surgery at [facility] for hepatology surgeon consult and may need actual surgical debridement of her liver for this extensive disease process. Patient is agreeable for transfer. At [facility], during to liver abscess was changed to accordion drain and patient was continued on meropenem. She had a PICC line placed and patient was discharged back to [facility] on Invanz 1 g daily. At the longterm, her nurse noted that she had some slurred speech and concern for tremors in her face which she was brought in by EMS to [facility] emergency center for evaluation. CT of the brain showed mild atrophy and otherwise negative. Patient was admitted to the selective care unit and neurology consult requested. We have added an EEG, MRI of the brain, carotid duplex, speech therapy consult, CT of the abdomen and pelvis to follow-up on hepatic abscess. Patient denies any abdominal pain at this time. Patient does voice that she is concerned for shorty strokes. Her speech is slurred and slower than her normal baseline. She does relate that she started Xanax 2 days ago. Review of Systems All systems: negative Constitutional: Reports fatigue, Reports lethargy, Reports weakness, Denies chills, Denies fever Eyes: denies blurred vision, denies pain Ears, nose, mouth and throat: Denies headache, Denies sore throat Cardiovascular: Denies chest pain, Denies shortness of breath Respiratory: Denies cough Gastrointestinal: Denies abdominal pain, Denies diarrhea, Denies nausea, Denies vomiting Genitourinary: Denies dysuria, Denies hematuria Musculoskeletal: Denies myalgias Integumentary: Reports wounds, Denies pruritus, Denies rash Neurological: Reports change in mentation, Reports change in speech, Denies aphasia, Denies gait dysfunction, Denies numbness, Denies weakness Psychiatric: Denies anxiety, Denies depression Endocrine: Denies fatigue, Denies weight change Past Medical History Past Medical History: Atrial Fibrillation, Coronary Artery Disease (CAD), Chest Pain / Angina, Heart Failure, COPD, Diabetes Mellitus, Deep Vein Thrombosis (DVT ), Hyperlipidemia, Hypertension, Osteoarthritis (OA), Respiratory Disorder, Skin Disorder, Sleep Apnea/CPAP/BIPAP, Thyroid Disorder, Vascular Disorder Additional Past Medical History / Comment(s): Pt recently admitted 03/06/18 with abdominal pain, live abscess that was drained and transferred to [facility] where a IR drain was placed on 03/08/18. 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 History of Any Multi-Drug Resistant Organisms: MRSA Date of last positivie culture/infection: 2000 MDRO Source:: unkn Past Surgical History: Cholecystectomy, Hernia Repair, Tonsillectomy Additional Past Surgical History / Comment(s): 03/08/18 IR drainage tube placed at [facility] for liver abscess, PICC line insertion 02/2018 at [facility] in L upper arm, liver abscess drained, 12/2016 exploratory laparatomy with R hemicolectomy and ileostomy, subsequent wound healing issue with wound vac place then 2ndary closure, thyroidectomy.. Past Anesthesia/Blood Transfusion Reactions: No Reported Reaction Past Psychological History: Anxiety, Depression Additional Psychological History / Comment(s): Pt resides at [facility] on [facility]. She is wheelchair bound. Smoking Status: Never smoker Past Alcohol Use History: None Reported Past Drug Use History: None Reported - Past Family History Sister(s) Family Medical History: Memory Impairment Mother Family Medical History: Coronary Artery Disease (CAD) Additional Family Medical History / Comment(s): History of coronary artery disease Father Family Medical History: Coronary Artery Disease (CAD) Medications and Allergies Home Medications Medication Instructions Recorded Confirmed Type Escitalopram [Lexapro] 20 mg PO DAILY 02/04/17 03/15/18 History Metoprolol Tartrate [Lopressor] 50 mg PO BID 02/22/17 03/15/18 History Atorvastatin [Lipitor] 10 mg PO HS 09/16/17 03/15/18 History HYDROcodone/APAP 7.5-325MG [[place] 1 tab PO Q8H PRN 09/16/17 03/15/18 History 7.5-325] Levothyroxine Sodium [Synthroid] 75 mcg PO DAILY@0600 09/16/17 03/15/18 History Midodrine HCl [ProAmatine] 10 mg PO TID@,,21 09/16/17 03/15/18 History Ondansetron [Zofran] 4 mg PO Q4H PRN 09/16/17 03/15/18 History Insulin Aspart [NovoLOG Flexpen] See Protocol SQ AC-TID 03/06/18 03/15/18 History Insulin Glargine [Lantus] 14 unit SQ HS 03/06/18 03/15/18 History Amitriptyline HCl [Elavil] 10 mg PO HS 03/15/18 03/15/18 History Apixaban [Eliquis] 5 mg PO BID 03/15/18 03/15/18 History Diflorasone Diacetate [Psorcon] 1 applic TOPICAL WE@1300 03/15/18 03/15/18 History Diltiazem Cd [Cardizem Cd] 120 mg PO DAILY 03/15/18 03/15/18 History Ertapenem [INVanz] 1 gm IVPB Q24H 03/15/18 03/15/18 History Furosemide [Lasix] 20 mg PO DAILY@0600 03/15/18 03/15/18 History Lidocaine 2% Gel [Xylocaine Jelly 1 applic TOPICAL Q24H PRN 03/15/18 03/15/18 History 2%] Metolazone [Zaroxolyn] 2.5 mg PO MOWEFR 03/15/18 03/15/18 History Omeprazole Magnesium [PriLOSEC OTC] 20 mg PO DAILY@0600 03/15/18 03/15/18 History Potassium Chloride ER [K-Dur 20] 20 meq PO TID@09,13,21 03/15/18 03/15/18 History Triamcinolone 0.1% Cream [Kenalog] 1 applic TOPICAL TID 03/15/18 03/15/18 History Allergies Allergy/AdvReac Type Severity Reaction Status Date / Time No Known Allergies Allergy Verified 03/15/18 07:36 Physical Exam Vitals: Vital Signs Temp Pulse Resp BP Pulse Ox 03/15/18 12:27 97.9 F 107 H 18 111/66 99 03/15/18 10:24 109 H 18 125/86 99 03/15/18 09:05 111 H 18 115/51 99 03/15/18 08:37 110 H 16 104/51 99 03/15/18 08:30 97.3 F L 103 H 18 90/56 99 03/15/18 07:20 124 H 20 140/83 96 03/15/18 07:17 128 H 18 100 03/15/18 06:24 97.1 F L 132 H 18 92 L 03/15/18 06:20 143/64 Intake and Output 03/14/18 03/15/18 03/15/18 22:59 06:59 14:59 Other: Weight 133.81 kg Gen: This is a morbidly obese 62-year-old female. She is in bed with head of the bed up. She appears to be comfortable and in no acute distress. No respiratory distress is noted. HEENT: Head is atraumatic, normocephalic. Pupils equal, round. Sclerae is anicteric. Mucous members of the mouth are dry. No thrush. Dentition is in poor order with multiple cracked teeth and caries. NECK: Supple. No JVD. No lymphadenopathy. No thyromegaly. LUNGS: Clear to auscultation. No wheezes or rhonchi. Diminished on the right side. No intercostal retractions. HEART: Regular rate and rhythm. No murmur. ABDOMEN: Morbidly obese. Soft. Bowel sounds are present. Right upper quadrant drain in place with scant amount in bag. Very large open ileostomy to the mid abdomen with liquid light brown stool. No redness under abdominal folds. No suprapubic tenderness. EXTREMITIES: +1 pedal edema bilaterally. No calf tenderness. Dorsalis pedis weak bilaterally. NEUROLOGICAL: Patient is awake, alert and oriented x3. Notice speech is slow and slurred compared to her baseline. Results CBC & Chem 7: 03/15/18 06:31 03/15/18 06:31 Labs: Abnormal Lab Results - Last 24 Hours (Table) 03/15/18 03/15/18 03/15/18 Range/Units : 06:31 07:09 WBC 12.3 H (3.8-10.6) k/uL RDW 17.2 H (11.5-15.5) % Neutrophils # 9.2 H (1.3-7.7) k/uL Sodium 133 L (137-145) mmol/L Glucose 151 H (74-99) mg/dL AST 13 L (14-36) U/L Total Protein 5.0 L (6.3-8.2) g/dL Albumin 2.4 L (3.5-5.0) g/dL Urine Appearance Cloudy H (Clear) Urine Protein 2+ H (Negative) Urine Blood Trace H (Negative) Ur Leukocyte Esterase Large H (Negative) Urine WBC >182 H (0-5) /hpf Urine WBC Clumps Many H (None) /hpf Urine Bacteria Rare H (None) /hpf Urine Mucus Rare H (None) /hpf Thrombosis Risk Factor Assmnt - DVT/VTE Prophylaxis DVT/VTE Prophylaxis: Pharmacologic Prophylaxis ordered - Choose All That Apply Any of the Below Risk Factors Present?: Yes Each Factor Represents 1 point: Abnormal pulmonary function (COPD), Medical pt on bed rest, Obesity (BMI >25) Other Risk Factors: Yes Each Risk Factor Represents 2 Points: Age 61-74 years Each Risk Factor Represents 3 Points: History of DVT/PE Other congenital or acquired thrombophilia - If yes, enter type in comment: No Thrombosis Risk Factor Assessment Total Risk Factor Score: 8 Thrombosis Risk Factor Assessment Level: High Risk Assessment and Plan Plan: 1. Slurred speech with facial tremors, rule out TIA, CVA, seizure activity. Consult with Dr. Ma. MRI of the brain, ultrasound duplex of the carotid arteries, EEG. Patient has been started on IV Keppra which will be continued. 2. Recent hospitalization for large abscess in the liver found on CT and sepsis. Patient was discharged from [facility] on eliquis. This is now changed to ceftriaxone. CT of the abdomen and pelvis ordered. 3. Chronic kidney disease stage II. 4. Hyponatremia, chronic. Continue to monitor. 5. Diabetes mellitus type 2, insulin requiring. Continue Levemir 14 units at bedtime along with NovoLog scale before meals and at bedtime. 6. Paroxysmal Atrial fibrillation currently on eliquis, Cardizem 120 mg daily, Lopressor 50 mg 2 times daily, hold for heart rate less than 50. 7. Chronic hypotension. Patient is continued on midodrine 10 mg 3 times daily. Patient's systolic blood pressure runs in the 80s and 90s. 8. 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 Patient subsequently developed nonhealing enterocutaneous fistulas. 9. Hypothyroidism continue Synthroid 75 g daily. 10. Gastroesophageal reflux disease and GI prophylaxis. IV Protonix. 11. Recurrent depression. Continue Lexapro 30 mg daily. 12. Hyperlipidemia. Continue atorvastatin. 13. Chronic diastolic heart failure and generalized anasarca. Lasix is on hold. 14. DVT prophylaxis. On eliquis 15. Skin tear wound posterior left knee, stage II decubitus ulcer sacrum, present on admission CODE STATUS: DO NOT RESUSCITATE Patient admitted to the hospital for a minimum of 2 night stay. Discharge plan: Return to [facility] Impression and plan of care have been directed as dictated by the signing physician. Ping Jaffe nurse practitioner acting as scribe for signing physician.
--- NOTE | 2018-03-15 16:15 | CT ---
EXAMINATION TYPE: CT abdomen pelvis w con DATE OF EXAM: 03/15/2018 HISTORY: Follow up for liver abscess. CT DLP: 2316.1mGycm Automated Exposure Control for Dose Reduction was Utilized. CONTRAST: CT scan of the abdomen and pelvis is performed without oral but with IV Contrast, patient injected wi th 100ml mL of Isovue M300. COMPARISON: CT abdomen and pelvis from 9 days ago.. FINDINGS: LUNG BASES: There is persistent small right pleural effusion or fluid collection. There is linear sca rring and/or atelectasis in both bases redemonstrated LIVER/GB: Cholecystectomy clips are redemonstrated. There is new posterior right-sided pigtail cathet er along posterior margin of liver with marked improvement in large oval fluid collection that had de pendent air. No significant residual fluid collection or abscess is identified. PANCREAS: No significant abnormality is seen. SPLEEN: No significant abnormality is seen. ADRENALS: No significant abnormality is seen. KIDNEYS: Cortical thinning in both kidneys is redemonstrated. No excretion is clearly seen on delayed phased images. No hydronephrosis is noted.. BOWEL: A few scattered colonic diverticula are present. There is no CT evidence for acute diverticuli tis. There is no suspicious small or large bowel dilatation.. UTERUS/ADNEXA: No gross abnormality seen. LYMPH NODES: No greater than 1cm abdominal or pelvic lymph nodes are appreciated. OSSEOUS STRUCTURES: Disc space narrowing lower lumbar levels is present. There is moderate multilevel spurring in the thoracic spine. There is facet arthropathy lower lumbar levels. OTHER: There is persistent scarring and/or open wound in the anterior abdominal wall extending to lef t of midline near axial image 54. IMPRESSION: Complete interval resolution of right posterior perihepatic fluid collection or abscess. Percutaneous pigtail catheter remains present.
[2018-03-15 16:33] LABS: Glucose,Whole Blood 78 mg/dL (75-99)
[2018-03-15] MEDS: MIDODRINE 5 MG TAB PO SCH (16:54)
[2018-03-15] MEDS: TRIAMCINOLONE 0.1% CREAM 80 GM TUBE TOPICAL SCH ×2 (16:54→21:10)
--- NOTE | 2018-03-15 19:59 | US ---
EXAMINATION TYPE: US carotid duplex BILAT DATE OF EXAM: 03/15/2018 COMPARISON: NONE CLINICAL HISTORY: mental status changes. Mental status changes, exam done portable. EXAM MEASUREMENTS: RIGHT: Peak Systolic Velocity (PSV) cm/sec ----- Right CCA: 47.4 ----- Right ICA: 64.2 ----- Right ECA: 92.2 ICA/CCA ratio: 1.4 RIGHT: End Diastole cm/sec ----- Right CCA: 22.5 ----- Right ICA: 37.1 ----- Right ECA: 24.8 LEFT: Peak Systolic Velocity (PSV) cm/sec ----- Left CCA: 42.3 ----- Left ICA: 71.6 ----- Left ECA: 85.0 ICA/CCA ratio: 1.7 LEFT: End Diastole cm/sec ----- Left CCA: 17.7 ----- Left ICA: 27.6 ----- Left ECA: 17.8 VERTEBRALS (direction of flow): Right Vertebral: Antegrade Left Vertebral: Antegrade Rhythm: Arrhythmia Difficult study due to patient body habitus and snoring during exam. IMPRESSION: Bilateral intimal thickening, no elevated velocities, no significant stenosis. Criteria for Assigning % of Stenosis / Diameter reduction (Estimation based on the indirect measurements of the internal carotid artery velocities (ICA PSV). 1. Normal (no stenosis)=ICA PSV < 125 cm/s: ratio < 2.0: ICA EDV<40 cm/s. 2. Less than 50% stenosis=ICA PSV < 125 cm/s: ratio < 2.0: ICA EDV<40 cm/s. 3. 50 to 69% stenosis=ICA PSV of 125 to 230 cm/s: ration 2.0 ? 4.0: ICA EDV 40-100 cm/s. 4. Greater than 70% stenosis to near occlusion= ICA PSV > 230 cm/s: ratio > 4.0: ICA EDV > 100 cm/s. 5. Near occlusion= ICA PSV velocities may be low or undetectable: variable ratio and ICA EDV. 6. Total occlusion=unable to detect flow.
[2018-03-15] MEDS: APIXABAN 5 MG TAB PO SCH (20:29)
[2018-03-15] MEDS: METOPROLOL TARTRATE 50 MG TAB PO SCH (20:29)
[2018-03-15] MEDS: ATORVASTATIN 10 MG TAB PO SCH (20:29)
[2018-03-15] MEDS: levETIRAcetam IV 1,000 MG in SALINE 1 100ML.BAG IVPB SCH (20:29)
[2018-03-15] MEDS: AMITRIPTYLINE HCL 10 MG TAB PO SCH (20:29)
[2018-03-15 21:06] LABS: Glucose,Whole Blood 114 mg/dL (75-99)
[2018-03-15] MEDS: INSULIN DETEMIR 100 UNIT/ML 10 ML VIAL SQ SCH (21:10)
--- NOTE | 2018-03-15 22:29 | CONS ---
CONSULTATION DATE OF CONSULTATION: 03/15/2018. CHIEF COMPLAINT: Tremors, possible seizures. HISTORY OF PRESENT ILLNESS: Mrs. Hall is a pleasant 62-year-old female who is being evaluated by the neurology service per the request of Dr. Powell for possible seizures. The patient resides at a residential and she states that she was awakened in the middle of the night by her body jerking. The patient states that she was conscious and aware of her environment. It was also noticed that she was having facial twitching during this event and that her speech was slurred. The patient denies any previous episodes similar to this. She denies any history of seizures and denies any recent head injuries. She was brought into [facility] Emergency Room for further workup and management. In the emergency room, a CT scan of the brain was done, which showed generalized atrophy. Her CBC showed mild leukocytosis at 12.3 and was otherwise normal. Her comprehensive metabolic profile showed mild hyponatremia at 133 and reduced protein and albumin at 5.0 and 2.4 respectively. Her urinalysis showed greater than 182 WBCs with large leukocyte esterase and negative nitrites. At the time of my evaluation, the patient is lying in her bed and appears to be in no acute distress. She denies having any recurrence of any neurological symptoms since her admission. PAST MEDICAL HISTORY: Depression, gastroesophageal reflux disease, hypertension, hypothyroidism, diabetes, chronic low back pain, history of recent retrohepatic abscess, atrial fibrillation, dyslipidemia. SOCIAL HISTORY: She denies any tobacco, alcohol or drug use. FAMILY HISTORY: Noncontributory. HOME MEDICATIONS: Reviewed in the chart. ALLERGIES: No known drug allergies. REVIEW OF SYSTEMS: CONSTITUTIONAL: Positive for fatigue. EYES: Negative. ENT: Negative. CARDIOVASCULAR: Negative. RESPIRATORY: Negative. NEUROLOGICAL: As mentioned above. GASTROINTESTINAL: Positive for occasional heartburn. GENITOURINARY: Negative. MUSCULOSKELETAL: Positive for chronic low back pain and recurrent joint pain. DERMATOLOGICAL: Negative. ENDOCRINE: Positive for diabetes and hypothyroidism. PHYSICAL EXAM: Vital signs show a temperature of 97.9, pulse 107, respiration 18, blood pressure 111/66. GENERAL APPEARANCE: The patient is an obese female who appears to be in no acute distress. HEENT: Normocephalic, atraumatic. No facial asymmetry is seen. Neck is supple with no masses felt. CARDIOVASCULAR: Regular rate and rhythm. ABDOMEN: Obese, nontender, nondistended. Extremities showed edema with no clubbing seen. NEUROLOGICAL: The patient is awake and oriented x3. Speech and language are normal. Strength is 4/5 in bilateral lower extremities and 5-/5 in bilateral upper extremities. Action tremors and postural tremors are seen in bilateral upper extremities. Finger- nose-finger testing showed no dysmetria. No facial asymmetry is seen on cranial nerve testing. Sensory showed diminished light touch sensation in bilateral distal lower extremities. IMPRESSION: 1. Atypical spell. 2. Tremors. 3. Dysarthria, resolved. 4. Altered mental status, resolved. 5. Acute urinary tract infection. RECOMMENDATION: The patient's episode of tremors involved both upper extremities and the patient recalls the event with no altered consciousness. I doubt any epileptic etiology for this event. She is scheduled for an EEG. She also had some confusion and dysarthria during the episode. It is unclear if this is due to any infectious encephalopathy, given her urinary tract infection, or if she had a transient ischemic attack. The patient is already on Eliquis for a history of atrial fibrillation and no other blood thinners are recommended at this time. Continue antibiotic therapy. Continue neuro checks. I will continue to follow with you. Further recommendations to follow. Thank you, Dr. Powell, for allowing me to participate in the care of your patient. If you have any questions, please feel free to contact me. JUNI / CHAYITO: [id number] /
[2018-03-15] MEDS ORDERED: HYDROcodone/APAP 7.5-325MG 1 EACH TAB PO PRN (23:21)
[2018-03-16 06:15] LABS: Glucose,Whole Blood 97 mg/dL (75-99)
[2018-03-16] MEDS: LEVOTHYROXINE 75 MCG TAB PO SCH (06:26)
[2018-03-16] MEDS: MIDODRINE 5 MG TAB PO SCH ×3 (06:26→16:57)
--- NOTE | 2018-03-16 07:47 | MR ---
EXAMINATION TYPE: MR brain [facility] DATE OF EXAM: 03/16/2018 COMPARISON: CT brain from one day earlier. HISTORY: mental status changes, slurred speech when admitted neck pain. TECHNIQUE: Multiplanar, multisequence images of the brain and brainstem is performed without and with IV contras t, utilizing 13.5 mL intravenous Gadavist . Multiplanar, multisequence imaging of the cervical spine is performed without contrast. FINDINGS: BRAIN: Diffusion weighted images demonstrate no evidence of a recent infarct or other diffusion abnormality. There is no worrisome extra-axial fluid collection. The ventricular system and cisternal spaces ar e normal in size and appearance. The brain volume is age appropriate. Some periventricular T2 hyperi ntense signal is present. There is more focal diminished T1 and increased T2 signal sulcal effacement consistent with subcortical edema involving the posterior left frontal lobe axial image 22 and 23. N o suspicious enhancement is present at this level. Midline structures demonstrate normal morphology. The craniocervical junction appears within normal limits. Post contrast images demonstrate no abnormal enhancement. The dural venous sinuses appear pa tent. The visualized sinuses are clear and the globes are intact. IMPRESSION: No evidence of a recent infarct. Focal posterior left frontal subcortical edema could how ever reflect subacute infarct. No enhancement is noted. Background mild to minimal chronic small vess el ischemic change. C-SPINE: Evaluation is suboptimal due to patient's body habitus. There is also some motion artifact d egradation particularly on axial images. FINDINGS: There is dextroconvex scoliotic curvature centered in the upper thoracic spine on coronal i mages. Sagittal images of the cervical spine show the craniocervical junction to appear within normal limits. The cervical and upper thoracic spinal cord is normal in course, caliber, and signal. Vert ebral alignment is anatomic. The vertebral body and intravertebral disk heights are normal. No suspi cious posterior disc herniations are seen. The bone marrow signal intensity is within normal limits. Axial images show some uncovertebral facet degenerative changes C3-C4 level contributing to mild bila teral neural foraminal narrowing. Axial images at C5-C6 level show right foraminal disc herniation ca using [id number] right-sided neural foraminal narrowing near axial image 24. Bilateral neural f oramina are patent. Remainder axial levels are felt unremarkable.. IMPRESSION: Suboptimal study, scoliotic curvature centered in thoracic spine, some degenerative singleton e C3-C4 and C5-C6 levels noted.
[2018-03-16] MEDS ORDERED: cefTRIAXone IN SWFI 1,000 MG/10 ML SYRINGE IVP SCH (09:00)
[2018-03-16] MEDS ORDERED: PANTOPRAZOLE 40 MG/10 ML VIAL IVP SCH (09:00)
[2018-03-16] MEDS: ESCITALOPRAM 20 MG TAB PO SCH (10:09)
[2018-03-16] MEDS: METOPROLOL TARTRATE 50 MG TAB PO SCH ×2 (10:09→20:51)
[2018-03-16] MEDS: levETIRAcetam IV 1,000 MG in SALINE 1 100ML.BAG IVPB SCH ×2 (10:09→20:51)
[2018-03-16] MEDS: DILTIAZEM CD 120 MG CAP.ER.24H PO SCH (10:09)
[2018-03-16] MEDS: APIXABAN 5 MG TAB PO SCH ×2 (10:23→20:51)
[2018-03-16] MEDS: ERTAPENEM 1 GM in SODIUM CHLORIDE 0.9% 50 ML IVPB SCH (10:24)
[2018-03-16] MEDS: TRIAMCINOLONE 0.1% CREAM 80 GM TUBE TOPICAL SCH ×2 (11:54→16:56)
[2018-03-16 11:58] LABS: Glucose,Whole Blood 97 mg/dL (75-99)
--- NOTE | 2018-03-16 12:15 | P.PN ---
Subjective Progress Note Date: 03/16/18 This is a 62-year-old female patient of Dr. Powell who resides at [facility] for the past year and a half, wheelchair-bound. Patient has history of treatment at [facility] with Dr. Yee. She had a strangulated ventral hernia and underwent exploratory laparotomy and ileostomy with right hemicolectomy 12/19/2016 with ischemic bowel found. She had a wound VAC placed and subsequently a secondary closure on 12/12/2016. She was diagnosed with a Staphylococcus epidermidis bacteremia possibly related to a PICC line and underwent IV antibiotics with daptomycin by subsequent thrombosis the left arm/ axillary. [facility] and was subsequently discharged to [facility]. 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 Patient was recently hospitalized from March 06 through March 09 for hepatic abscess and underwent successful CT-guided drainage catheter insertion in the hepatic abscess with return of 400 mL of purulent material. Cultures and pathology are pending. She has been afebrile. Dr. Sky was recommended transfer to surgery at [facility] for hepatology surgeon consult and may need actual surgical debridement of her liver for this extensive disease process. Patient is agreeable for transfer. At [facility], during to liver abscess was changed to accordion drain and patient was continued on meropenem. She had a PICC line placed and patient was discharged back to [facility] on Invanz 1 g daily. At the group home, her nurse noted that she had some slurred speech and concern for tremors in her face which she was brought in by EMS to [facility] emergency center for evaluation. CT of the brain showed mild atrophy and otherwise negative. Patient was admitted to the selective care unit and neurology consult requested. We have added an EEG, MRI of the brain, carotid duplex, speech therapy consult, CT of the abdomen and pelvis to follow-up on hepatic abscess. Patient denies any abdominal pain at this time. Patient does voice that she is concerned for shorty strokes. Her speech is slurred and slower than her normal baseline. She does relate that she started Xanax 2 days ago. 03/16: On evaluation today, patient is back to her baseline mentation. Rotted ultrasound was negative for hemodynamically significant stenosis. MRI of the brain showed no recent infarct. Focal posterior left frontal subcortical edema could reflect subacute infarct. No enhancement is noted. Background mild to minimal chronic small vessel ischemic change. MRI of the C-spine was suboptimal study. Scoliotic curvature in the thoracic spine some degenerative change in C3-C4 and C5-C6. Patient has been seen by Dr. Ma. EEG is pending. CAT scan of the abdomen and pelvis revealed complete interval resolution of right posterior perihepatic fluid collection or abscess. Consult added for Dr. Dr. Pope regarding possible removal of hepatic drain. Noted from records from the group home, patient is to be on ertapenem and will complete her course on April 10. Antibiotics will be switched to ertapenem. Objective - Vital Signs Vital signs: Vital Signs Temp 97.1 F L 03/16/18 04:00 Pulse 108 H 03/16/18 04:00 Resp 16 03/16/18 04:00 BP 85/60 03/16/18 04:00 Pulse Ox 99 03/16/18 08:58 Intake & Output 03/15/18 03/16/18 03/16/18 18:59 06:59 18:59 Intake Total 237 800 Output Total 650 Balance 237 150 Weight 144.5 kg Intake: IV 800 Sodium Chloride 0.9% 1, 800 000 ml @ 100 mls/hr IV . Q10H ONE Rx#:[id number] Oral 237 Output: Stool 650 Other: Voiding Method Diaper Incontinent # Voids 2 - Exam Gen: This is a morbidly obese 62-year-old female. She is in bed with head of the bed up. She appears to be comfortable and in no acute distress. No respiratory distress is noted. HEENT: Head is atraumatic, normocephalic. Pupils equal, round. Sclerae is anicteric. Mucous members of the mouth are dry. No thrush. Dentition is in poor order with multiple cracked teeth and caries. NECK: Supple. No JVD. No lymphadenopathy. No thyromegaly. LUNGS: Clear to auscultation. No wheezes or rhonchi. Diminished on the right side. No intercostal retractions. HEART: Regular rate and rhythm. No murmur. ABDOMEN: Morbidly obese. Soft. Bowel sounds are present. Right upper quadrant drain in place with scant amount in bag. Very large open ileostomy to the mid abdomen with liquid light brown stool. No redness under abdominal folds. No suprapubic tenderness. EXTREMITIES: +1 pedal edema bilaterally. No calf tenderness. Dorsalis pedis weak bilaterally. NEUROLOGICAL: Patient is awake, alert and oriented x3. Speech clear. Generalized weakness with significant weakness of the bilateral lower extremities. - Labs CBC & Chem 7: 03/15/18 06:31 03/15/18 06:31 Labs: Abnormal Lab Results - Last 24 Hours (Table) 03/15/18 03/15/18 Range/Units 14:01 21:04 POC Glucose (mg/dL) 114 H (75-99) mg/dL Plasma Lactic Acid Ronnie 2.3 H* (0.7-2.0) mmol/L Assessment and Plan Plan: 1. Slurred speech with facial tremors, possibly due to subacute stroke seizure activity. Consult with Dr. Ma. MRI of the brain, ultrasound duplex of the carotid arteries, EEG. Patient has been started on IV Keppra which will be continued. 2. Recent hospitalization for large abscess in the liver found on CT and sepsis. Patient was discharged from [facility] on eliquis. Patient had midline placed and is on ertapenem through April 10. CT of the abdomen and pelvis reveals resolution of fluid collection. Consult with Dr. Barrios regarding removal of hepatic drain. 3. Chronic kidney disease stage II. 4. Hyponatremia, chronic. Continue to monitor. 5. Diabetes mellitus type 2, insulin requiring. Continue Levemir 14 units at bedtime along with NovoLog scale before meals and at bedtime. 6. Paroxysmal Atrial fibrillation currently on eliquis, Cardizem 120 mg daily, Lopressor 50 mg 2 times daily, hold for heart rate less than 50. 7. Chronic hypotension. Patient is continued on midodrine 10 mg 3 times daily. Patient's systolic blood pressure runs in the 80s and 90s. 8. 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 Patient subsequently developed nonhealing enterocutaneous fistulas. 9. Hypothyroidism continue Synthroid 75 g daily. 10. Gastroesophageal reflux disease and GI prophylaxis. IV Protonix. 11. Recurrent depression. Continue Lexapro 30 mg daily. 12. Hyperlipidemia. Continue atorvastatin. 13. Chronic diastolic heart failure and generalized anasarca. Lasix is on hold. 14. DVT prophylaxis. On eliquis 15. Skin tear wound posterior left knee, stage II decubitus ulcer sacrum, present on admission CODE STATUS: DO NOT RESUSCITATE Discharge plan: Return to [facility] Impression and plan of care have been directed as dictated by the signing physician. Ping Jaffe nurse practitioner acting as scribe for signing physician.
--- NOTE | 2018-03-16 12:58 | P.GSCN ---
<Elly Abbott - Last Filed: 03/16/18 12:35> History of Present Illness Consult date: 03/16/18 Reason for Consult: Possible removal percutaneous hepatic drain History of present illness: 62-year-old female being seen at the request of the attending for a surgical eval for possible removal of the percutaneous hepatic drain. Patient reportedly had a CAT scan done this admission of the abdomen pelvis which showed complete resolution of the right posterior hepatic fluid abscess has a history of undergoing exploratory laparotomy ileostomy with a right hemicolectomy done on December 2016 for ischemic bowel. Patient was recently hospitalized in February for hepatic abscess. Underwent a successful CT- guided drainage of the hepatic abscess by on March 06. With the current CAT scan done this admission showing complete resolution of the right posterior hepatic fluid Patient has been followed by infectious disease. Apparently the patient was also transferred to [facility] due to the liver abscess. Patient was started on meropenem. Had a PICC line placed. was discharged back to [facility] facility. Patient this admission was admitted from the [facility] facility for altered mental status changes. Review of Systems Essentially unremarkable except as mentioned in the present illness Past Medical History Past Medical History: Atrial Fibrillation, Coronary Artery Disease (CAD), Chest Pain / Angina, Heart Failure, COPD, Diabetes Mellitus, Deep Vein Thrombosis (DVT ), Hyperlipidemia, Hypertension, Osteoarthritis (OA), Respiratory Disorder, Skin Disorder, Sleep Apnea/CPAP/BIPAP, Thyroid Disorder, Vascular Disorder Additional Past Medical History / Comment(s): Pt recently admitted 03/06/18 with abdominal pain, live abscess that was drained and transferred to [facility] where a IR drain was placed on 03/08/18. 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 History of Any Multi-Drug Resistant Organisms: MRSA Year Discovered:: 2000 MDRO Source:: unkn Past Surgical History: Cholecystectomy, Hernia Repair, Tonsillectomy Additional Past Surgical History / Comment(s): 03/08/18 IR drainage tube placed at [facility] for liver abscess, PICC line insertion 02/2018 at [facility] in L upper arm, liver abscess drained, 12/2016 exploratory laparatomy with R hemicolectomy and ileostomy, subsequent wound healing issue with wound vac place then 2ndary closure, thyroidectomy.. Past Anesthesia/Blood Transfusion Reactions: No Reported Reaction Past Psychological History: Anxiety, Depression Additional Psychological History / Comment(s): Pt resides at [facility]. She is wheelchair bound. Smoking Status: Never smoker Past Alcohol Use History: None Reported Past Drug Use History: None Reported - Past Family History Sister(s) Family Medical History: Memory Impairment Mother Family Medical History: Coronary Artery Disease (CAD) Additional Family Medical History / Comment(s): History of coronary artery disease Father Family Medical History: Coronary Artery Disease (CAD) Medications and Allergies Home Medications Medication Instructions Recorded Confirmed Type Escitalopram [Lexapro] 20 mg PO DAILY 02/04/17 03/15/18 History Metoprolol Tartrate [Lopressor] 50 mg PO BID 02/22/17 03/15/18 History Atorvastatin [Lipitor] 10 mg PO HS 09/16/17 03/15/18 History HYDROcodone/APAP 7.5-325MG [[place] 1 tab PO Q8H PRN 09/16/17 03/15/18 History 7.5-325] Levothyroxine Sodium [Synthroid] 75 mcg PO DAILY@0600 09/16/17 03/15/18 History Midodrine HCl [ProAmatine] 10 mg PO TID@,13,21 09/16/17 03/15/18 History Ondansetron [Zofran] 4 mg PO Q4H PRN 09/16/17 03/15/18 History Insulin Aspart [NovoLOG Flexpen] See Protocol SQ AC-TID 03/06/18 03/15/18 History Insulin Glargine [Lantus] 14 unit SQ HS 03/06/18 03/15/18 History Amitriptyline HCl [Elavil] 10 mg PO HS 03/15/18 03/15/18 History Apixaban [Eliquis] 5 mg PO BID 03/15/18 03/15/18 History Diflorasone Diacetate [Psorcon] 1 applic TOPICAL WE@1300 03/15/18 03/15/18 History Diltiazem Cd [Cardizem Cd] 120 mg PO DAILY 03/15/18 03/15/18 History Ertapenem [INVanz] 1 gm IVPB Q24H 03/15/18 03/15/18 History Furosemide [Lasix] 20 mg PO DAILY@0600 03/15/18 03/15/18 History Lidocaine 2% Gel [Xylocaine Jelly 1 applic TOPICAL Q24H PRN 03/15/18 03/15/18 History 2%] Metolazone [Zaroxolyn] 2.5 mg PO MOWEFR 03/15/18 03/15/18 History Omeprazole Magnesium [PriLOSEC OTC] 20 mg PO DAILY@0600 03/15/18 03/15/18 History Potassium Chloride ER [K-Dur 20] 20 meq PO TID@09,13,21 03/15/18 03/15/18 History Triamcinolone 0.1% Cream [Kenalog] 1 applic TOPICAL TID 03/15/18 03/15/18 History Allergies Allergy/AdvReac Type Severity Reaction Status Date / Time No Known Allergies Allergy Verified 03/15/18 07:36 Surgical - Exam Vital Signs BP 143/64 03/15/18 06:20 GENERAL APPEARANCE: 62-year-old patient is alert to person place and event, oriented, in no acute distress. VITAL SIGNS: Reviewed HEENT: Head is normocephalic and atraumatic. Pupils are equal and reactive. The nares are patent. Oropharynx is clear without lesions. NECK: Supple without lymphadenopathy. Traches midline. HEART: S1, S2. Regular rate and rhythm. Denying chest pain no murmur LUNGS: No crackles or wheezes are heard. Adequate air movement ABDOMEN: Soft, obese bowel tones present. A large open ileostomy with a moderate amount of liquid brown stool. Right upper quadrant drain in place scant amount of drainage noted no reports of nausea vomiting nontender, nondistended with good bowel sounds. No peritoneal signs. No palpable organomegaly or masses. Taking diet no nausea no vomiting EXTREMITIES: Normal skin color and turgor. Trace bilateral pedal edema Radial pedal pulses are 2/4 bilaterally. 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 Kaminski will evaluate CAT scan of the abdomen pelvis to make a decision about removing the percutaneous drain We'll follow with you further recommendations DVT and GI prophylaxis Agree with holding elquis for now Surgical consultation note dictated for Dr. kaminski The above impression and plan of care have been discussed and directed by signing physician. Elly Abbott nurse practitioner acting as scribe for signing physician. <Tony Kaminski - Last Filed: 03/16/18 17:18> Surgical - Exam Vital Signs BP 143/64 03/15/18 06:20 Results - Labs 03/15/18 06:31 03/15/18 06:31 Abnormal Lab Results - Last 24 Hours (Table) 03/15/18 Range/Units 21:04 POC Glucose (mg/dL) 114 H (75-99) mg/dL Microbiology - Last 24 Hours (Table) 03/15/18 14:37 Blood Culture - Preliminary Blood No Growth after 24 hours Assessment and Plan Assessment: As above. Patient with recent evaluation and percutaneous drain of perihepatic abscess. CAT scan shows complete resolution. Will discuss further with interventional radiology but should be able to remove drain during this hospitalization.
[2018-03-16 17:07] LABS: Glucose,Whole Blood 85 mg/dL (75-99)
--- NOTE | 2018-03-16 17:15 | EEG ---
ELECTROENCEPHALOGRAM REPORT DATE OF SERVICE: 03/16/2018 REASON FOR TESTING: Seizure. CURRENT SEIZURE MEDICATION: Keppra. DESCRIPTION OF THE PROCEDURE: This EEG was performed using a 21-channel digital electroencephalograph, following international 10-20 system. DESCRIPTION OF THE RECORDING: From the beginning of the tracing, and with the patient's eyes closed, the background rhythm was mostly consisting of 9 Hz alpha frequency in the posterior occipital leads. No obvious asymmetry is seen. Photic stimulation was performed with a minimal driving response seen. No pathological waves were elicited. Hyperventilation was not performed. The patient does reach stage II of sleep during the tracing and occasional sleep spindles are seen. Hyperventilation was not performed. Occasional movement and muscle artifacts are seen. No epileptiform discharges were seen. Her EKG lead showed an irregularly irregular rhythm with a normal rate. INTERPRETATION: This awake EEG can be considered within normal limits, except her EKG lead showed an irregularly irregular rhythm with a normal rate. No epileptiform discharges were seen. The absence of epileptiform discharges does not rule out the diagnosis of epilepsy; therefore clinical correlation is recommended. JUNI / CHAYITO: [id number] / MTDD
--- NOTE | 2018-03-16 17:56 | P.PN ---
Subjective Progress Note Date: 03/16/18 Patient is a pleasant 62-year-old female who is being followed by the neurology service for possible seizures. [facility] and states she had body jerking in the middle of the night. Patient states she was conscious and aware of the impairment. She denies any loss of consciousness. Patient denies history of seizures. Patient was brought to [facility] for further evaluation. Computed tomography scan of the brain showed generalized atrophy. Patient was found to have urinary tract infection. At the time of my evaluation, patient's resting comfortably in bed and appears to be in no acute distress. Objective - Vital Signs Vital signs: Vital Signs Temp 97.1 F L 03/16/18 12:00 Pulse 105 H 03/16/18 12:00 Resp 18 03/16/18 12:00 BP 88/52 03/16/18 12:00 Pulse Ox 95 03/16/18 12:00 Intake & Output 03/15/18 03/16/18 03/16/18 18:59 06:59 18:59 Intake Total 641 335 8120 Output Total 650 Balance 943 275 8810 Weight 144.5 kg Intake: IV 800 600 Sodium Chloride 0.9% 1, 800 600 000 ml @ 100 mls/hr IV . Q10H ONE Rx#:[id number] Intake, IV Titration 200 Amount Ertapenem 1 gm In Sodium 100 Chloride 0.9% 50 ml @ 100 mls/hr IVPB DAILY [facility] Rx #:[id number] levETIRAcetam IV 1,000 mg 100 In Saline 1 100ml.bag @ 400 mls/hr IVPB Q12HR [facility] Rx#:[id number] Oral 237 240 Output: Stool 650 Other: Voiding Method Diaper Incontinent # Voids 2 - Exam PHYSICAL EXAM: GENERAL APPEARANCE: Patient is a well-developed, female who appears to be in no acute distress. HEENT: Normocephalic, atraumatic, no facial asymmetry is seen. Neck is supple with no masses felt. CARDIOVASCULAR: Regular rate and rhythm. ABDOMEN: Nontender, nondistended. EXTREMITIES: Show edema with no clubbing. NEUROLOGICAL EXAM: Patient is awake, alert, and oriented 3. Speech and language are normal. Strength is 4/5 in bilateral lower extremities and 5-/5 in bilateral upper extremities. Minimal postural tremors in bilateral upper extremities are noted. Sensory exam was diminished to light touch in bilateral lower extremities. No facial asymmetry is seen on cranial nerve testing. No seizure-like activity seen or reported. - Labs CBC & Chem 7: 03/15/18 06:31 03/15/18 06:31 Labs: Abnormal Lab Results - Last 24 Hours (Table) 03/15/18 Range/Units 21:04 POC Glucose (mg/dL) 114 H (75-99) mg/dL Microbiology - Last 24 Hours (Table) 03/15/18 14:37 Blood Culture - Preliminary Blood No Growth after 24 hours Assessment and Plan Plan: Impression: 1. Atypical spell 2. Tremors 3. Dysarthria, resolved 4. Altered mental status, resolved 5. Acute urinary tract infection Recommendation: Patient's episode of tremors and body jerking are not consistent with epileptic etiology. EEG was considered within normal limits, except EKG bleed showed an irregularly irregular rhythm with a normal rate. No epileptiform discharges were seen. MRI of the brain shows no evidence of a recent infarct, however, shows focal posterior left frontal subcortical edema which could reflect subacute infarct. MRI also shows minimal chronic small vessel ischemic disease. MRI of the C-spine shows degenerative changes. Patient is already on Eliquis for history of atrial fibrillation. I do not feel patient's tremors or body jerking was of epileptic etiology. No further episodes of extremity jerking or tremoring since admission. I recommend continuing antibiotic therapy. Continue neurological checks. I will continue to follow with you on an as-needed basis. Feel free to call with any questions or concerns. I performed an examination of the patient and discussed the management with the LEATHER STRETCHER. I have reviewed the LEATHER STRETCHER notes and agree with the findings and plan of care.
[2018-03-16] MEDS: AMITRIPTYLINE HCL 10 MG TAB PO SCH (20:51)
[2018-03-16] MEDS: ATORVASTATIN 10 MG TAB PO SCH (20:51)
[2018-03-16 21:10] LABS: Glucose,Whole Blood 113 mg/dL (75-99)
[2018-03-16] MEDS: INSULIN DETEMIR 100 UNIT/ML 10 ML VIAL SQ SCH (21:53)
[2018-03-17 06:20] LABS: Glucose,Whole Blood 140 mg/dL (75-99)
[2018-03-17] MEDS: LEVOTHYROXINE 75 MCG TAB PO SCH (06:56)
[2018-03-17] MEDS: MIDODRINE 5 MG TAB PO SCH ×2 (06:56→11:41)
[2018-03-17] MEDS: TRIAMCINOLONE 0.1% CREAM 80 GM TUBE TOPICAL SCH ×2 (06:57→09:13)
[2018-03-17] MEDS ORDERED: PANTOPRAZOLE 40 MG TABLET PO SCH (07:30)
[2018-03-17] MEDS: DILTIAZEM CD 120 MG CAP.ER.24H PO SCH (08:25)
[2018-03-17] MEDS: ESCITALOPRAM 20 MG TAB PO SCH (08:25)
[2018-03-17] MEDS: APIXABAN 5 MG TAB PO SCH (08:25)
[2018-03-17] MEDS: ERTAPENEM 1 GM in SODIUM CHLORIDE 0.9% 50 ML IVPB SCH (08:30)
[2018-03-17] MEDS: levETIRAcetam IV 1,000 MG in SALINE 1 100ML.BAG IVPB SCH (09:13)
[2018-03-17 10:44] VITALS: BMI 50.1
--- NOTE | 2018-03-17 10:52 | P.DS ---
Providers Date of admission: 03/15/18 08:06 Expected date of discharge: 03/17/18 Attending physician: Angela Powell Consults: 03/15/18 08:06 Consult Physician Routine Consulting Provider: Radha Ma Consult Reason/Comments: simplePartialSz Do you want consulting provider notified?: Yes 03/16/18 08:51 Consult Physician Routine Consulting Provider: Tony Pope Consult Reason/Comments: ok to remove hepatic drain Do you want consulting provider notified?: Yes Primary care physician: Angela Powell Hospital Course: This is a 62-year-old female patient of Dr. Powell who resides at [facility] for the past year and a half, wheelchair-bound. Patient has history of treatment at [facility] with Dr. Yee. She had a strangulated ventral hernia and underwent exploratory laparotomy and ileostomy with right hemicolectomy 12/19/2016 with ischemic bowel found. She had a wound VAC placed and subsequently a secondary closure on 12/12/2016. She was diagnosed with a Staphylococcus epidermidis bacteremia possibly related to a PICC line and underwent IV antibiotics with daptomycin by subsequent thrombosis the left arm/ axillary. She went to [facility] with TPN and IV antibiotics and was subsequently discharged to [facility]. 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 Patient was recently hospitalized from March 06 through March 09 for hepatic abscess and underwent successful CT-guided drainage catheter insertion in the hepatic abscess with return of 400 mL of purulent material. Cultures and pathology are pending. She has been afebrile. Dr. Sky was recommended transfer to surgery at [facility] for hepatology surgeon consult and may need actual surgical debridement of her liver for this extensive disease process. Patient is agreeable for transfer. At [facility], during to liver abscess was changed to accordion drain and patient was continued on meropenem. She had a PICC line placed and patient was discharged back to [facility] on Invanz 1 g daily. At the halfway, her nurse noted that she had some slurred speech and concern for tremors in her face which she was brought in by EMS to [facility] emergency center for evaluation. CT of the brain showed mild atrophy and otherwise negative. Patient was admitted to the selective care unit and neurology consult requested. We have added an EEG, MRI of the brain, carotid duplex, speech therapy consult, CT of the abdomen and pelvis to follow-up on hepatic abscess. Patient denies any abdominal pain at this time. Patient does voice that she is concerned for shorty strokes. Her speech is slurred and slower than her normal baseline. She does relate that she started Xanax 2 days ago. 03/16: On evaluation today, patient is back to her baseline mentation. Rotted ultrasound was negative for hemodynamically significant stenosis. MRI of the brain showed no recent infarct. Focal posterior left frontal subcortical edema could reflect subacute infarct. No enhancement is noted. Background mild to minimal chronic small vessel ischemic change. MRI of the C-spine was suboptimal study. Scoliotic curvature in the thoracic spine some degenerative change in C3-C4 and C5-C6. Patient has been seen by Dr. Ma. EEG is pending. CAT scan of the abdomen and pelvis revealed complete interval resolution of right posterior perihepatic fluid collection or abscess. Consult added for Dr. Pope regarding possible removal of hepatic drain. Noted from records from the halfway, patient is to be on ertapenem and will complete her course on April 10. Antibiotics will be switched to ertapenem. 03/17: Patient has been seen by Dr. Pope with plan for interventional radiology to remove hepatic drain. Patient will need to continue ertapenem at the halfway to complete the previous planned course set up by [facility]. EEG was considered within normal limits. It appears that neurology does not have epileptiform etiology and we'll plan to discontinue Keppra.Patient will be discharged today in stable condition. Discharge diagnoses: 1. Slurred speech with facial tremors due to subacute stroke. 2. Recent hospitalization for large abscess in the liver found on CT and sepsis. 3. Chronic kidney disease stage II. 4. Hyponatremia, chronic. 5. Diabetes mellitus type 2, insulin requiring. 6. Paroxysmal Atrial fibrillation 7. Chronic hypotension. 8. 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 Patient subsequently developed nonhealing enterocutaneous fistulas. 9. Hypothyroidism 10. Gastroesophageal reflux disease 11. Recurrent depression. 12. Hyperlipidemia. 13. Chronic diastolic heart failure and generalized anasarca. 14. Skin tear wound posterior left knee, stage II decubitus ulcer sacrum, present on admission Discharge plan: Return to [facility] Impression and plan of care have been directed as dictated by the signing physician. Ping Jaffe nurse practitioner acting as scribe for signing physician. Patient Condition at Discharge: Good Plan - Discharge Summary Discharge Rx Participant: No New Discharge Prescriptions: Continue Escitalopram [Lexapro] 20 mg PO DAILY Metoprolol Tartrate [Lopressor] 50 mg PO BID Ondansetron [Zofran] 4 mg PO Q4H PRN PRN Reason: Nausea Levothyroxine Sodium [Synthroid] 75 mcg PO DAILY@0600 Atorvastatin [Lipitor] 10 mg PO HS Midodrine HCl [ProAmatine] 10 mg PO TID@,, Insulin Aspart [NovoLOG Flexpen] See Protocol SQ AC-TID Insulin Glargine [Lantus] 14 unit SQ HS Amitriptyline HCl [Elavil] 10 mg PO HS Apixaban [Eliquis] 5 mg PO BID Diflorasone Diacetate [Psorcon] 1 applic TOPICAL WE@1300 Diltiazem Cd [Cardizem CD] 120 mg PO DAILY Furosemide [Lasix] 20 mg PO DAILY@0600 Lidocaine 2% Gel [Xylocaine Jelly 2%] 1 applic TOPICAL Q24H PRN PRN Reason: Pain Metolazone [Zaroxolyn] 2.5 mg PO MOWEFR Omeprazole Magnesium [PriLOSEC OTC] 20 mg PO DAILY@0600 Potassium Chloride ER [K-Dur 20] 20 meq PO TID@, Triamcinolone 0.1% Cream [Kenalog] 1 applic TOPICAL TID Ertapenem [INVanz] 1 gm IVPB Q24H #0 HYDROcodone/APAP 7.5-325MG [[place] 7.5-325] 1 tab PO Q8H PRN #90 tab PRN Reason: Pain Discharge Medication List Escitalopram [Lexapro] 20 mg PO DAILY 02/04/17 [History] Metoprolol Tartrate [Lopressor] 50 mg PO BID 02/22/17 [History] Atorvastatin [Lipitor] 10 mg PO HS 09/16/17 [History] Levothyroxine Sodium [Synthroid] 75 mcg PO DAILY@0600 09/16/17 [History] Midodrine HCl [ProAmatine] 10 mg PO TID@09/16/17 [History] Ondansetron [Zofran] 4 mg PO Q4H PRN 09/16/17 [History] Insulin Aspart [NovoLOG Flexpen] See Protocol SQ AC-TID 03/06/18 [History] Insulin Glargine [Lantus] 14 unit SQ HS 03/06/18 [History] Amitriptyline HCl [Elavil] 10 mg PO HS 03/15/18 [History] Apixaban [Eliquis] 5 mg PO BID 03/15/18 [History] Diflorasone Diacetate [Psorcon] 1 applic TOPICAL WE@1300 03/15/18 [History] Diltiazem Cd [Cardizem CD] 120 mg PO DAILY 03/15/18 [History] Furosemide [Lasix] 20 mg PO DAILY@0600 03/15/18 [History] Lidocaine 2% Gel [Xylocaine Jelly 2%] 1 applic TOPICAL Q24H PRN 03/15/18 [ History] Metolazone [Zaroxolyn] 2.5 mg PO MOWEFR 03/15/18 [History] Omeprazole Magnesium [PriLOSEC OTC] 20 mg PO DAILY@0600 03/15/18 [History] Potassium Chloride ER [K-Dur 20] 20 meq PO TID@,,03/15/18 [History] Triamcinolone 0.1% Cream [Kenalog] 1 applic TOPICAL TID 03/15/18 [History] Ertapenem [INVanz] 1 gm IVPB Q24H #0 03/17/18 [Rx] HYDROcodone/APAP 7.5-325MG [[place] 7.5-325] 1 tab PO Q8H PRN #90 tab 03/17/18 [Rx ] Follow up Appointment(s)/Referral(s): Angela Powell MD [Primary Care Provider] - 1-2 days
[2018-03-17] MEDS: METOPROLOL TARTRATE 50 MG TAB PO SCH (11:41)
[2018-03-17 12:08] LABS: Glucose,Whole Blood 156 mg/dL (75-99)
--- NOTE | 2018-03-17 14:30 | P.PN ---
Subjective Progress Note Date: 03/17/18 Principal diagnosis: Liver abscess Patient feels well today. Her drain was removed. Denies abdominal pain. Objective - Vital Signs Vital signs: Vital Signs Temp 96.6 F L 03/17/18 11:23 Pulse 95 03/17/18 11:23 Resp 20 03/17/18 11:23 BP 91/54 03/17/18 11:23 Pulse Ox 98 03/17/18 11:23 Intake & Output 03/16/18 03/17/18 03/17/18 18:59 06:59 18:59 Intake Total 1040 130 510 Output Total 500 950 240 Balance 540 -820 270 Weight 145 kg 145 kg Intake: IV 600 Sodium Chloride 0.9% 1, 600 000 ml @ 100 mls/hr IV . Q10H ONE Rx#:[id number] Intake, IV Titration 200 150 Amount Ertapenem 1 gm In Sodium 100 50 Chloride 0.9% 50 ml @ 100 mls/hr IVPB DAILY [facility] Rx #:[id number] levETIRAcetam IV 1,000 mg 100 100 In Saline 1 100ml.bag @ 400 mls/hr IVPB Q12HR [facility] Rx#:[id number] Oral 240 130 360 Output: Stool 500 950 240 Other: Voiding Method Diaper Diaper Incontinent Incontinent # Voids 3 2 - Exam Abdomen: Soft, nontender, nondistended - Labs CBC & Chem 7: 03/15/18 06:31 03/15/18 06:31 Labs: Abnormal Lab Results - Last 24 Hours (Table) 03/16/18 03/17/18 03/17/18 Range/Units 21:08 06:19 12:05 POC Glucose (mg/dL) 113 H 140 H 156 H (75-99) mg/dL Microbiology - Last 24 Hours (Table) 03/15/18 16:02 Blood Culture - Preliminary Blood No Growth after 24 hours 03/15/18 14:37 Blood Culture - Preliminary Blood No Growth after 24 hours Assessment and Plan (1) Liver abscess Narrative/Plan: Patient's drain was removed today. No further surgical intervention planned. We'll sign off. Current Visit: No Status: Acute Code(s): K75.0 - ABSCESS OF LIVER SNOMED Code(s): 26339907
[2018-03-17 15:35] VITALS: BP 88/51; PULSE 80; RESP 16; TEMP 97.2
== END 2018-03-17 16:18 | DRG 65 ==
LOC: EC 06:19 → 6SEL 08:06
PROVIDERS: ADMIT Family Medicine; ATTEND Family Medicine
DX: I63.9 Cerebral infarction, unspecified (principal); E87.1 Hypo-osmolality and hyponatremia; F33.9 Major depressive disorder, recurrent, unspecified; I13.0 Hypertensive heart and chronic kidney disease with heart failure and stage 1 through stage 4 chronic kidney disease, or unspecified chronic kidney disease; I50.32 Chronic diastolic (congestive) heart failure; N39.0 Urinary tract infection, site not specified; Z68.43 Body mass index [BMI] 50.0-59.9, adult; E11.22 Type 2 diabetes mellitus with diabetic chronic kidney disease; I48.0 Paroxysmal atrial fibrillation; I95.89 Other hypotension; L89.152 Pressure ulcer of sacral region, stage 2; E66.01 Morbid (severe) obesity due to excess calories; E11.42 Type 2 diabetes mellitus with diabetic polyneuropathy; S81.019A Laceration without foreign body, unspecified knee, initial encounter; M41.9 Scoliosis, unspecified; N31.9 Neuromuscular dysfunction of bladder, unspecified; E78.5 Hyperlipidemia, unspecified; E89.0 Postprocedural hypothyroidism; F41.9 Anxiety disorder, unspecified; G47.30 Sleep apnea, unspecified; I25.10 Atherosclerotic heart disease of native coronary artery without angina pectoris; I87.2 Venous insufficiency (chronic) (peripheral); J44.9 Chronic obstructive pulmonary disease, unspecified; K21.9 Gastro-esophageal reflux disease without esophagitis; N18.2 Chronic kidney disease, stage 2 (mild); G89.29 Other chronic pain; M19.90 Unspecified osteoarthritis, unspecified site; M54.5 Low back pain; X58.XXXA Exposure to other specified factors, initial encounter; N39.498 Other specified urinary incontinence; R47.81 Slurred speech; R25.1 Tremor, unspecified; Z66 Do not resuscitate; Z79.01 Long term (current) use of anticoagulants; Z79.4 Long term (current) use of insulin; Z79.899 Other long term (current) drug therapy; Z99.3 Dependence on wheelchair; Z86.718 Personal history of other venous thrombosis and embolism; Z86.14 Personal history of Methicillin resistant Staphylococcus aureus infection; Z90.49 Acquired absence of other specified parts of digestive tract; Z93.2 Ileostomy status; Z82.49 Family history of ischemic heart disease and other diseases of the circulatory system
CPT/HCPCS: 36415; 70450; 70553; 72141; 74177; 80053; 81001; 83605; 85025; 87040; 93005; 93880; 94760; 95819; 96365; 96366; 96375; 99285

== ENCOUNTER 2018-03-28 08:01 | Emergency (ER) | payer MEDICARE, OTHER ==
[2018-03-28 08:11] VITALS: TEMP 97.5
--- NOTE | 2018-03-28 08:12 | ED ---
General Adult HPI - General Stated complaint: fall Time Seen by Provider: 03/28/18 08:02 Source: patient, RN notes reviewed, old records reviewed - History of Present Illness Initial comments: 62-year-old female presenting with fall from bed and head injury. Patient is normally obese and bedbound, she was reaching over the left side of her bed and fell striking the left side of her head and left shoulder. There was no loss consciousness. Injury occurred approximately 2 hours prior to arrival. She has only minimal headache and left shoulder pain. No other injury noted on history. Patient is currently on Eliquis for atrial fibrillation. She denies vision changes. Denies nausea vomiting. Denies abdominal pain. Denies any lower extremity injury. - Related Data Home Medications Medication Instructions Recorded Confirmed Escitalopram [Lexapro] 20 mg PO DAILY@0900 02/04/17 03/28/18 Atorvastatin [Lipitor] 10 mg PO HS@2100 09/16/17 03/28/18 Levothyroxine Sodium [Synthroid] 75 mcg PO DAILY@0600 09/16/17 03/28/18 Midodrine HCl [ProAmatine] 10 mg PO TID@,,09/16/17 03/28/18 Ondansetron [Zofran] 4 mg PO Q4H PRN 09/16/17 03/28/18 Insulin Glargine [Lantus] 14 unit SQ HS@2100 03/06/18 03/28/18 Amitriptyline HCl [Elavil] 10 mg PO HS@2100 03/15/18 03/28/18 Apixaban [Eliquis] 5 mg PO BID 03/15/18 03/28/18 Diflorasone Diacetate [Psorcon] 1 applic TOPICAL WE@1300 03/15/18 03/28/18 Furosemide [Lasix] 20 mg PO DAILY@0603/15/18 03/28/18 Lidocaine 2% Gel [Xylocaine Jelly 1 applic TOPICAL Q24H PRN 03/15/18 03/28/18 2%] Metolazone [Zaroxolyn] 2.5 mg PO MOWEFR 03/15/18 03/28/18 Omeprazole Magnesium [PriLOSEC OTC] 20 mg PO DAILY@0600 03/15/18 03/28/18 ALPRAZolam [Xanax] 0.25 mg PO Q8HR PRN 03/28/18 03/28/18 Dimethicone/Zinc Oxide [Inzo Zinc 1 applic TOPICAL BID 03/28/18 03/28/18 Oxide Barrier Cream] INSULIN LISPRO (humaLOG) [humaLOG] See Protocol SQ AC-TID 03/28/18 03/28/18 Metoprolol Tartrate [Lopressor] 100 mg PO BID@0900,209903/28/18 03/28/18 Potassium Chloride [Klor-Con 10] 20 meq PO TID 03/28/18 03/28/18 Spironolactone [Aldactone] 50 mg PO BID@0900,209903/28/18 03/28/18 Triad 1 applic TOPICAL BID 03/28/18 03/28/18 Previous Rx's Medication Instructions Recorded Ertapenem [INVanz] 1 gm IVPB Q24H #0 03/17/18 HYDROcodone/APAP 7.5-325MG [[place] 1 tab PO Q8H PRN #90 tab 03/17/18 7.5-325] Allergies Allergy/AdvReac Type Severity Reaction Status Date / Time No Known Allergies Allergy Verified 03/28/18 09:18 Review of Systems ROS Statement: Those systems with pertinent positive or pertinent negative responses have been documented in the HPI. ROS Other: All systems not noted in ROS Statement are negative. Past Medical History Past Medical History: Atrial Fibrillation, Coronary Artery Disease (CAD), Chest Pain / Angina, Heart Failure, COPD, Diabetes Mellitus, Deep Vein Thrombosis (DVT ), Hyperlipidemia, Hypertension, Osteoarthritis (OA), Respiratory Disorder, Skin Disorder, Sleep Apnea/CPAP/BIPAP, Thyroid Disorder, Vascular Disorder Additional Past Medical History / Comment(s): Pt recently admitted 03/06/18 with abdominal pain, live abscess that was drained and transferred to [facility] where a IR drain was placed on 03/08/18. 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 History of Any Multi-Drug Resistant Organisms: MRSA Date of last positivie culture/infection: 2000 MDRO Source:: unkn Past Surgical History: Cholecystectomy, Hernia Repair, Tonsillectomy Additional Past Surgical History / Comment(s): 03/08/18 IR drainage tube placed at [facility] for liver abscess, PICC line insertion 02/2018 at [facility] in L upper arm, liver abscess drained, 12/2016 exploratory laparatomy with R hemicolectomy and ileostomy, subsequent wound healing issue with wound vac place then 2ndary closure, thyroidectomy.. Past Anesthesia/Blood Transfusion Reactions: No Reported Reaction Past Psychological History: Anxiety, Depression Additional Psychological History / Comment(s): Pt resides at [facility]. She is wheelchair bound. Smoking Status: Never smoker Past Alcohol Use History: None Reported Past Drug Use History: None Reported - Past Family History Sister(s) Family Medical History: Memory Impairment Mother Family Medical History: Coronary Artery Disease (CAD) Additional Family Medical History / Comment(s): History of coronary artery disease Father Family Medical History: Coronary Artery Disease (CAD) General Exam General appearance: alert, in no apparent distress Head exam: Present: normocephalic. Absent: atraumatic (Hematoma to the left forehead and temporal region) Eye exam: Present: normal appearance, PERRL, EOMI ENT exam: Present: normal exam Neck exam: Present: normal inspection. Absent: tenderness, meningismus Respiratory exam: Present: normal lung sounds bilaterally. Absent: respiratory distress Cardiovascular Exam: Present: tachycardia, irregular rhythm GI/Abdominal exam: Present: soft, distended, other. Absent: tenderness Extremities exam: Present: pedal edema, other (Old skin tear anterior right marshall , bilateral chronic venous stasis) Neurological exam: Present: alert, oriented X3, CN II-XII intact. Absent: motor sensory deficit Psychiatric exam: Present: normal affect, normal mood Skin exam: Present: warm, dry Course Vital Signs 03/28/18 03/28/18 03/28/18 08:06 09:12 10:48 Temperature 97.5 F L 97.5 F L Pulse Rate 109 H 96 105 H Respiratory 20 18 16 Rate Blood Pressure 81/58 103/59 O2 Sat by Pulse 97 99 98 Oximetry 03/28/18 10:52 Temperature Pulse Rate Respiratory Rate Blood Pressure 84/58 O2 Sat by Pulse Oximetry Medical Decision Making - Medical Decision Making 62-year-old female status post fall out of bed with minor head injury. CT is obtained is negative for intracranial pathology, no hemorrhage, CT C-spine is negative for fracture or subluxation. She did have some minor pain in her left shoulder which was also x-rayed and negative for acute bony abnormality. On reevaluation, patient is eager for discharge. She has no headache, unchanged neurologic examination. She will be discharged to the half-way. Return with worsening or changing symptoms. Patient's blood pressure does run low, she is mentating normally. Previous vital signs reviewed and patient is normally in the high 80s to 90s systolic. She is asymptomatic and blood pressure can be monitored at the half-way. Disposition Clinical Impression: Fall, Closed head injury Disposition: HOME SELF-CARE Condition: Fair Instructions: Fall Prevention for Older Adults (ED), Concussion (ED) Is patient prescribed a controlled substance at d/c from ED?: No Referrals: Angela Powell MD [Primary Care Provider] - 1-2 days Time of Disposition: 11:29
--- NOTE | 2018-03-28 08:53 | CT ---
EXAMINATION TYPE: CT brain cspine wo con DATE OF EXAM: 03/28/2018 COMPARISON: CT brain March 15, 2018. HISTORY: Fall today with Left frontal injury and neck pain. CT DLP: 3085.1 mGycm. Automated Exposure Control for Dose Reduction was Utilized. TECHNIQUE: CT scan of the head and cervical spine are performed without contrast. FINDINGS: There is no acute intracranial hemorrhage or midline shift identified. There is ventricul ar and sulcal prominence consistent with diffuse cerebral atrophy. There is low-attenuation in the pe riventricular white matter patchy soft tissue density right external auditory canal is felt to reflec t cerumen. The globes are intact and the visualized sinuses are clear. The calvarium is intact. Cervical spine is visualized in its entirety from C1 through upper thoracic levels and demonstrates r eversal of normal cervical curvature without evidence of acute fracture or dislocation. Prevertebral soft tissue appears within normal limits. The C1-C2 articulation is within normal limits on the cor onal images. Vertebral body heights and disc space heights are maintained. No large posterior disc h erniations are seen. Review of axial images show some uncovertebral facet degenerative changes bilateral C3-C4 and C4-C5 a s well as right C5-C6 level causing mild right-sided neural foraminal narrowing C5-C6 level. Posterio r spur disc complex effacing anterior thecal sac at C5-C6 level. Visualized thyroid gland is unremark able. IMPRESSION: 1. There is no acute fracture or dislocation evident in the cervical spine. 2. No acute intracranial hemorrhage or midline shift is seen.
--- NOTE | 2018-03-28 09:26 | XR ---
EXAMINATION TYPE: XR shoulder complete LT DATE OF EXAM: 03/28/2018 CLINICAL HISTORY: Fall injury with left shoulder pain. TECHNIQUE: Three views of the left shoulder are obtained. COMPARISON: None. FINDINGS: There is no acute fracture/dislocation evident in the left shoulder. There is joint space loss at acromioclavicular joint. Glenohumeral joint is maintained. The visualized ribs are intact an d unremarkable. Overlying PICC Line is noted. IMPRESSION: There is no acute fracture or dislocation in the left shoulder.
[2018-03-28 10:48] VITALS: RESP 16
[2018-03-28] MEDS ORDERED: SODIUM CHLORIDE 0.9% 500 ML IV ONE (10:53)
[2018-03-28 11:39] VITALS: BP 94/66; PULSE 113
== END 2018-03-28 12:52 | disposition home or self-care (01) ==
LOC: EC 08:01
DX: S00.83XA Contusion of other part of head, initial encounter (principal); M25.512 Pain in left shoulder; R00.0 Tachycardia, unspecified; R14.0 Abdominal distension (gaseous); I87.8 Other specified disorders of veins; R60.0 Localized edema; I95.9 Hypotension, unspecified; I48.0 Paroxysmal atrial fibrillation; E78.5 Hyperlipidemia, unspecified; I13.0 Hypertensive heart and chronic kidney disease with heart failure and stage 1 through stage 4 chronic kidney disease, or unspecified chronic kidney disease; I50.9 Heart failure, unspecified; N18.2 Chronic kidney disease, stage 2 (mild); I25.10 Atherosclerotic heart disease of native coronary artery without angina pectoris; E11.22 Type 2 diabetes mellitus with diabetic chronic kidney disease; E11.42 Type 2 diabetes mellitus with diabetic polyneuropathy; E03.9 Hypothyroidism, unspecified; G47.30 Sleep apnea, unspecified; F32.9 Major depressive disorder, single episode, unspecified; E66.9 Obesity, unspecified; F41.9 Anxiety disorder, unspecified; Z79.01 Long term (current) use of anticoagulants; Z79.4 Long term (current) use of insulin; Z79.52 Long term (current) use of systemic steroids; Z79.899 Other long term (current) drug therapy; Z86.14 Personal history of Methicillin resistant Staphylococcus aureus infection; Z87.19 Personal history of other diseases of the digestive system; Z90.49 Acquired absence of other specified parts of digestive tract; Z74.01 Bed confinement status; Z86.718 Personal history of other venous thrombosis and embolism; Z99.3 Dependence on wheelchair; Z82.49 Family history of ischemic heart disease and other diseases of the circulatory system; Z99.89 Dependence on other enabling machines and devices; Z68.42 Body mass index [BMI] 45.0-49.9, adult; W06.XXXA Fall from bed, initial encounter; Y93.89 Activity, other specified
CPT/HCPCS: 70450; 72125; 96360; 99285

== ENCOUNTER 2018-12-14 15:13 | Emergency (ER) | payer MEDICARE, OTHER ==
[2018-12-14 15:50] VITALS: RESP 16
[2018-12-14] MEDS ORDERED: VANCOMYCIN 2,000 MG in SODIUM CHLORIDE 0.9% 250 ML IVPB STA (16:08)
[2018-12-14] MEDS ORDERED: VANCOMYCIN IV PER PHARMACY 1 EACH MISC MISCELLANE PRN ×2 (16:12→16:17)
[2018-12-14] MEDS ORDERED: CEFEPIME 2 GM in SODIUM CHLORIDE 0.9% 100 ML IVPB STA (16:14)
[2018-12-14] MEDS: SODIUM CHLORIDE 0.9% 500 ML 500 ML IV SCH ×2 (16:21→17:00)
[2018-12-14] MEDS ORDERED: VANCOMYCIN 2,500 MG in SODIUM CHLORIDE 0.9% 500 ML 500 ML IVPB ONE (16:30)
--- NOTE | 2018-12-14 16:31 | ED ---
General Adult HPI - General Chief complaint: Recheck/Abnormal Lab/Rx Stated complaint: Rule out Sepsis Source: EMS Mode of arrival: EMS Limitations: no limitations - History of Present Illness Initial comments: Dictation was produced using [employer] dictation software. please excuse any grammatical, word or spelling errors. Chief Complaint: Patient is 63-year-old female transferred by EMS from assisted facility for concerns of sepsis. History of Present Illness: She 62-year-old female she was transferred here from assisted for concerns of sepsis. Patient transferred from [facility] where she is currently under care per she is at the assisted for CVA with residual deficits and chronic debility. Patient has multiple comorbidities including abscess of the liver, A. fib, depression, chronic wounds of the legs and acute as ulcers, diabetes nephropathy. Patient states she's been expressing significant pain to her abdomen and bilateral lower extremities. Patient's currently being treated for liver abscess. Patient gets take antibiotics. Patient states that she initially requested to be transferred to [facility] were most of her medical cares performed however she is brought here by EMS first due to concerns of unstable vital signs. Patient has no other complaints. Patient reports she had a recent colostomy bag performed. Patient has a constitutional symptoms. Denies any nausea or vomiting. The ROS documented in this emergency department record has been reviewed and confirmed by me. Those systems with pertinent positive or negative responses have been documented in the HPI. All other systems are other negative and/or noncontributory. PHYSICAL EXAM: General Impression: Alert and oriented x3, not in acute distress, morbidly obese HEENT: Normocephalic atraumatic, extra-ocular movements intact, pupils equal and reactive to light bilaterally, dry mucous membranes Cardiovascular: Heart regular rate and rhythm, S1&S2 audible, no murmurs, rubs or gallops Chest: Lungs clear to auscultation bilaterally, no rhonchi, no wheeze, no rales Abdomen: Bowel sounds present, abdomen soft, erythema and skin breakdown at the 7:00 portion of the ostomy, diffuse abdominal tenderness Motor: Moves all extremity is grossly Neurological: CN II-XII grossly intact, no focal motor or sensory deficits noted Skin: Hyperpigmentation to the bilateral lower extremities, tenderness to palpation of the entire legs bilaterally. Pressure sores to bilateral lateral lower extremities. ED course: 60-year-old female brought in via EMS for concerns of sepsis. Patient presents with chart. Chart shows that patient is leukocytosis of 30.3. She had high. Flexion of neutrophils. Patient also had a sodium of 129 which was seen on outpatient labs. Vital signs upon arrival shows blood pressure 86/60, rest of vital signs within acceptable limits.Laboratory evaluation obtained. Patient is leukocytosis of 20.4. There is elevated neutrophils. Coag panel unremarkable. Patient is however on request. Sodium 124. Potassium 5.9. Patient does have some acidosis that is non-anion gap. Mild elevation of renal markers. Lactic acidosis 2.3. Urinalysis shows positive nitrates and 100 WBCs with large leukocyte esterase. Blood cultures and urine cultures pending. Chest x-ray is unremarkable. CT of the abdomen and pelvis shows anterior abdominal ventral hernia appears to contain small bowel. Possible enteric cutaneous fistula. Discussed patient case with Dr. Stone and he is told that patient has an ostomy that area. He does not see any inflammatory changes to suggest intra-abdominal infection. Tib-fib x-rays obtained showing no evidence of osteomyelitis or free gas. At this point patient clinical presentation consistent with sepsis. At this point there is no overwhelming solitary source however there is consideration of cellulitis, UTI. Patient requests transfer to [facility]. Discussed patient case with Dr. Conklin who is accepting ER to ER transfer. Patient given intravenous fluids with improvement of blood pressure. Patient was given vancomycin and cefepime. This point patient medically stable for transfer. EKG interpretation: Ventricular rate 111, QRS 62, QTc 44. No ND prolongation, no QTC prolongation, no ST or T-wave changes noted. Overall, this EKG is unremarkable - Related Data Home Medications Medication Instructions Recorded Confirmed Escitalopram [Lexapro] 20 mg PO DAILY@0900 02/04/17 12/14/18 Atorvastatin [Lipitor] 10 mg PO HS@2100 09/16/17 12/14/18 Levothyroxine Sodium [Synthroid] 75 mcg PO DAILY@0600 09/16/17 12/14/18 Midodrine HCl [ProAmatine] 10 mg PO TID@0900,1300,2100 09/16/17 12/14/18 Insulin Glargine [Lantus] 25 unit SQ HS@2100 03/06/18 12/14/18 Apixaban [Eliquis] 5 mg PO BID@0900,2100 03/15/18 12/14/18 Furosemide [Lasix] 40 mg PO DAILY@0600 03/15/18 12/14/18 Lidocaine 2% Gel [Xylocaine Jelly 1 applic TOPICAL Q24H PRN 03/15/18 12/14/18 2%] Metoprolol Tartrate [Lopressor] 100 mg PO BID@0900,2100 03/28/18 12/14/18 Cholestyramine (with Sugar) 4 gm PO MOTUTHSA 12/14/18 12/14/18 [Cholestyramine Packet] Codeine 30 mg PO BID@0600,1800 12/14/18 12/14/18 Demeclocycline HCl 300 mg PO Q12H 12/14/18 12/14/18 Dicyclomine [Bentyl] 10 mg PO TID@0900,1300,209912/14/18 12/14/18 Gabapentin [Neurontin] 300 mg PO BID@0900,209912/14/18 12/14/18 INSULIN ASPART (NovoLOG) [NovoLOG 10 unit SQ TID@0800,1200,1700 12/14/18 (formulary)] Ondansetron HCl [Zofran] 8 mg PO Q8H PRN 12/14/18 12/14/18 Ranitidine HCl 150 mg PO BID@0900,209912/14/18 12/14/18 Sodium Bicarbonate Tab 650 mg PO BID@0900,209912/14/18 12/14/18 Spironolactone [Aldactone] 25 mg PO BID@0900,209912/14/18 12/14/18 Triamcinolone 0.1% Cream [Kenalog 1 applic TOPICAL Q12H 12/14/18 12/14/18 0.1% Cream] busPIRone HCL 15 mg PO BID@0900,209912/14/18 12/14/18 Allergies Allergy/AdvReac Type Severity Reaction Status Date / Time No Known Allergies Allergy Verified 12/14/18 16:03 Review of Systems ROS Statement: Those systems with pertinent positive or pertinent negative responses have been documented in the HPI. ROS Other: All systems not noted in ROS Statement are negative. Past Medical History Past Medical History: Atrial Fibrillation, Coronary Artery Disease (CAD), Chest Pain / Angina, Heart Failure, COPD, Diabetes Mellitus, Deep Vein Thrombosis (DVT ), Hyperlipidemia, Hypertension, Osteoarthritis (OA), Respiratory Disorder, Skin Disorder, Sleep Apnea/CPAP/BIPAP, Thyroid Disorder, Vascular Disorder Additional Past Medical History / Comment(s): Pt recently admitted 03/06/18 with abdominal pain, live abscess that was drained and transferred to [facility] where a IR drain was placed on 03/08/18. 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 History of Any Multi-Drug Resistant Organisms: MRSA Date of last positivie culture/infection: 2000 MDRO Source:: unkn Past Surgical History: Cholecystectomy, Hernia Repair, Tonsillectomy Additional Past Surgical History / Comment(s): 03/08/18 IR drainage tube placed at [facility] for liver abscess, PICC line insertion 02/2018 at [facility] in L upper arm, liver abscess drained, 12/2016 exploratory laparatomy with R hemicolectomy and ileostomy, subsequent wound healing issue with wound vac place then 2ndary closure, thyroidectomy.. Past Anesthesia/Blood Transfusion Reactions: No Reported Reaction Past Psychological History: Anxiety, Depression Smoking Status: Never smoker Past Alcohol Use History: None Reported Past Drug Use History: None Reported - Past Family History Sister(s) Family Medical History: Memory Impairment Mother Family Medical History: Coronary Artery Disease (CAD) Additional Family Medical History / Comment(s): History of coronary artery disease Father Family Medical History: Coronary Artery Disease (CAD) General Exam Limitations: no limitations Course Vital Signs 12/14/18 12/14/18 12/14/18 15:41 15:45 16:00 Temperature 97.8 F Pulse Rate 88 84 Respiratory 16 18 Rate Blood Pressure 86/60 72/34 O2 Sat by Pulse 99 99 Oximetry 12/14/18 12/14/18 12/14/18 16:20 16:30 16:40 Temperature 98.0 F Pulse Rate 86 Respiratory 16 16 17 Rate Blood Pressure 91/62 91/62 96/20 O2 Sat by Pulse 100 99 Oximetry 12/14/18 12/14/18 12/14/18 16:50 17:00 17:10 Temperature Pulse Rate 86 88 Respiratory 17 17 20 Rate Blood Pressure 96/20 87/66 O2 Sat by Pulse 100 100 100 Oximetry 12/14/18 12/14/18 12/14/18 17:20 17:30 22:05 Temperature Pulse Rate 84 80 88 Respiratory 15 16 Rate Blood Pressure 87/66 87/66 O2 Sat by Pulse 100 98 Oximetry Medical Decision Making - Lab Data Result diagrams: 12/14/18 16:11 12/14/18 18:51 Lab Results 12/14/18 12/14/18 12/14/18 Range/Units 16:11 16:11 16:11 WBC 20.4 H (3.8-10.6) k/uL RBC 5.58 H (3.80-5.40) m/uL Hgb 15.0 (11.4-16.0) gm/dL Hct 47.9 H (34.0-46.0) % MCV 85.7 (80.0-100.0) fL MCH 26.9 (25.0-35.0) pg MCHC 31.4 (31.0-37.0) g/dL RDW 17.3 H (11.5-15.5) % Plt Count 539 H (150-450) k/uL Neutrophils % (Manual) 84 % Band Neutrophils % 3 % Lymphocytes % (Manual) 3 % Monocytes % (Manual) 5 % Eosinophils % (Manual) 1 % Metamyelocytes % 1 % Myelocytes % 4 % Neutrophils # (Manual) 17.70 H (1.3-7.7) k/uL Lymphocytes # (Manual) 0.61 L (1.0-4.8) k/uL Monocytes # (Manual) 1.02 H (0-1.0) k/uL Eosinophils # (Manual) 0.20 (0-0.7) k/uL Metamyelocytes # (Man) 0.20 H (0) k/uL Myelocytes # (Manual) 0.82 H (0) k/uL Nucleated RBCs 1 H (0-0) /100 WBC Manual Slide Review Performed Toxic Granulation Present Toxic Vacuolation Present Large Platelets Present Polychromasia Present Poikilocytosis (manual Present Anisocytosis Slight PT (9.0-12.0) sec INR (<1.2) APTT (22.0-30.0) sec Sodium 124 L (137-145) mmol/L Potassium 6.0 H (3.5-5.1) mmol/L Chloride 94 L (98-107) mmol/L Carbon Dioxide 20 L (22-30) mmol/L Anion Gap 10 mmol/L BUN 54 H (7-17) mg/dL Creatinine 1.41 H (0.52-1.04) mg/dL Est GFR (CKD-EPI)AfAm 46 (>60 ml/min/1.73 sqM) Est GFR (CKD-EPI)NonAf 40 (>60 ml/min/1.73 sqM) Glucose 148 H (74-99) mg/dL Lactic Ac Sepsis Rflx Plasma Lactic Acid Ronnie (0.7-2.0) mmol/L Calcium 8.8 (8.4-10.2) mg/dL Total Bilirubin 0.6 (0.2-1.3) mg/dL AST 19 (14-36) U/L ALT 26 (9-52) U/L Alkaline Phosphatase 217 H (38-126) U/L Total Creatine Kinase 42 (30-135) U/L CK-MB (CK-2) 1.2 (0.0-2.4) ng/mL CK-MB (CK-2) Rel Index 2.9 Troponin I <0.012 (0.000-0.034) ng/mL Total Protein 5.2 L (6.3-8.2) g/dL Albumin 2.4 L (3.5-5.0) g/dL Urine Color Urine Appearance (Clear) Urine pH (5.0-8.0) Ur Specific Rewey (1.001-1.035) Urine Protein (Negative) Urine Glucose (UA) (Negative) Urine Ketones (Negative) Urine Blood (Negative) Urine Nitrite (Negative) Urine Bilirubin (Negative) Urine Urobilinogen (<2.0) mg/dL Ur Leukocyte Esterase (Negative) Urine RBC (0-5) /hpf Urine WBC (0-5) /hpf Urine WBC Clumps (None) /hpf Urine Bacteria (None) /hpf 12/14/18 12/14/1819 Range/Units 16:11 16:11 16:55 WBC (3.8-10.6) k/uL RBC (3.80-5.40) m/uL Hgb (11.4-16.0) gm/dL Hct (34.0-46.0) % MCV (80.0-100.0) fL MCH (25.0-35.0) pg MCHC (31.0-37.0) g/dL RDW (11.5-15.5) % Plt Count (150-450) k/uL Neutrophils % (Manual) % Band Neutrophils % % Lymphocytes % (Manual) % Monocytes % (Manual) % Eosinophils % (Manual) % Metamyelocytes % % Myelocytes % % Neutrophils # (Manual) (1.3-7.7) k/uL Lymphocytes # (Manual) (1.0-4.8) k/uL Monocytes # (Manual) (0-1.0) k/uL Eosinophils # (Manual) (0-0.7) k/uL Metamyelocytes # (Man) (0) k/uL Myelocytes # (Manual) (0) k/uL Nucleated RBCs (0-0) /100 WBC Manual Slide Review Toxic Granulation Toxic Vacuolation Large Platelets Polychromasia Poikilocytosis (manual Anisocytosis PT 11.7 (9.0-12.0) sec INR 1.1 (<1.2) APTT 24.5 (22.0-30.0) sec Sodium (137-145) mmol/L Potassium (3.5-5.1) mmol/L Chloride (98-107) mmol/L Carbon Dioxide (22-30) mmol/L Anion Gap mmol/L BUN (7-17) mg/dL Creatinine (0.52-1.04) mg/dL Est GFR (CKD-EPI)AfAm (>60 ml/min/1.73 sqM) Est GFR (CKD-EPI)NonAf (>60 ml/min/1.73 sqM) Glucose (74-99) mg/dL Lactic Ac Sepsis Rflx Y Plasma Lactic Acid Ronnie 2.3 H* (0.7-2.0) mmol/L Calcium (8.4-10.2) mg/dL Total Bilirubin (0.2-1.3) mg/dL AST (14-36) U/L ALT (9-52) U/L Alkaline Phosphatase (38-126) U/L Total Creatine Kinase (30-135) U/L CK-MB (CK-2) (0.0-2.4) ng/mL CK-MB (CK-2) Rel Index Troponin I (0.000-0.034) ng/mL Total Protein (6.3-8.2) g/dL Albumin (3.5-5.0) g/dL Urine Color Urine Appearance (Clear) Urine pH (5.0-8.0) Ur Specific Rewey (1.001-1.035) Urine Protein (Negative) Urine Glucose (UA) (Negative) Urine Ketones (Negative) Urine Blood (Negative) Urine Nitrite (Negative) Urine Bilirubin (Negative) Urine Urobilinogen (<2.0) mg/dL Ur Leukocyte Esterase (Negative) Urine RBC (0-5) /hpf Urine WBC (0-5) /hpf Urine WBC Clumps (None) /hpf Urine Bacteria (None) /hpf 12/14/18 12/14/18 12/14/18 Range/Units 18:51 20:50 21:04 WBC (3.8-10.6) k/uL RBC (3.80-5.40) m/uL Hgb (11.4-16.0) gm/dL Hct (34.0-46.0) % MCV (80.0-100.0) fL MCH (25.0-35.0) pg MCHC (31.0-37.0) g/dL RDW (11.5-15.5) % Plt Count (150-450) k/uL Neutrophils % (Manual) % Band Neutrophils % % Lymphocytes % (Manual) % Monocytes % (Manual) % Eosinophils % (Manual) % Metamyelocytes % % Myelocytes % % Neutrophils # (Manual) (1.3-7.7) k/uL Lymphocytes # (Manual) (1.0-4.8) k/uL Monocytes # (Manual) (0-1.0) k/uL Eosinophils # (Manual) (0-0.7) k/uL Metamyelocytes # (Man) (0) k/uL Myelocytes # (Manual) (0) k/uL Nucleated RBCs (0-0) /100 WBC Manual Slide Review Toxic Granulation Toxic Vacuolation Large Platelets Polychromasia Poikilocytosis (manual Anisocytosis PT (9.0-12.0) sec INR (<1.2) APTT (22.0-30.0) sec Sodium (137-145) mmol/L Potassium 5.9 H (3.5-5.1) mmol/L Chloride (98-107) mmol/L Carbon Dioxide (22-30) mmol/L Anion Gap mmol/L BUN (7-17) mg/dL Creatinine (0.52-1.04) mg/dL Est GFR (CKD-EPI)AfAm (>60 ml/min/1.73 sqM) Est GFR (CKD-EPI)NonAf (>60 ml/min/1.73 sqM) Glucose (74-99) mg/dL Lactic Ac Sepsis Rflx Plasma Lactic Acid Ronnie 1.1 (0.7-2.0) mmol/L Calcium (8.4-10.2) mg/dL Total Bilirubin (0.2-1.3) mg/dL AST (14-36) U/L ALT (9-52) U/L Alkaline Phosphatase (38-126) U/L Total Creatine Kinase (30-135) U/L CK-MB (CK-2) (0.0-2.4) ng/mL CK-MB (CK-2) Rel Index Troponin I (0.000-0.034) ng/mL Total Protein (6.3-8.2) g/dL Albumin (3.5-5.0) g/dL Urine Color Yellow Urine Appearance Cloudy H (Clear) Urine pH 5.5 (5.0-8.0) Ur Specific Rewey 1.014 (1.001-1.035) Urine Protein Trace H (Negative) Urine Glucose (UA) Negative (Negative) Urine Ketones Negative (Negative) Urine Blood Negative (Negative) Urine Nitrite Positive H (Negative) Urine Bilirubin Negative (Negative) Urine Urobilinogen <2.0 (<2.0) mg/dL Ur Leukocyte Esterase Large H (Negative) Urine RBC 1 (0-5) /hpf Urine WBC 100 H (0-5) /hpf Urine WBC Clumps Many H (None) /hpf Urine Bacteria Many H (None) /hpf Critical Care Time Critical Care Time: Yes Total Critical Care Time: 31 Disposition Clinical Impression: Sepsis, UTI (urinary tract infection), Cellulitis Disposition: OTHER INSTITUTION NOT DEFINED Condition: Critical Referrals: Angela Powell MD [Primary Care Provider] - 1-2 days Time of Disposition: 22:10 - Out of Hospital Transfer - Req. Specs Out of Hospital Transfer - Requested Specifics: Other Emergency Center ([facility])
[2018-12-14 16:46] LABS: Albumin 2.4 g/dL (3.5-5.0); Calcium 8.8 mg/dL (8.4-10.2); Total Bilirubin 0.6 mg/dL (0.2-1.3); Total Protein 5.2 g/dL (6.3-8.2)
[2018-12-14 16:48] LABS: Creatine Kinase 42 U/L (30-135)
[2018-12-14 16:53] LABS: Anisocytosis Slight; HCT 47.9 % (34.0-46.0); MCH 26.9 pg (25.0-35.0); MCHC 31.4 g/dL (31.0-37.0); MCV 85.7 fL (80.0-100.0); Mean Platelet Volume 7.5; Platelet Count 539 k/uL (150-450); RBC 5.58 m/uL (3.80-5.40); RDW 17.3 % (11.5-15.5)
--- NOTE | 2018-12-14 17:00 | XR ---
EXAMINATION TYPE: XR chest 1V portable DATE OF EXAM: 12/14/2018 COMPARISON: 03/06/2018 HISTORY: Fever TECHNIQUE: Single frontal view of the chest is obtained. FINDINGS: Heart and mediastinum are normal. Lungs are clear. Diaphragm is normal. Bony thorax is int act. There are chest leads. IMPRESSION: No active cardiopulmonary disease. No change.
[2018-12-14 17:01] LABS: Creatine Kinase MB 1.2 ng/mL (0.0-2.4); Troponin I <0.012 ng/mL (0.000-0.034)
[2018-12-14 17:02] LABS: INR 1.1 (<1.2); Partial Thromboplastin Time 24.5 sec (22.0-30.0); Prothrombin Time 11.7 sec (9.0-12.0)
[2018-12-14 17:12] LABS: Band Neutrophils % 3 %; Lymphocytes # (M) 0.61 k/uL (1.0-4.8); Metamyelocytes % 1 %; Monocytes # (M) 1.02 k/uL (0-1.0); Myelocytes # (M) 0.82 k/uL (0); Myelocytes % 4 %; Neutrophils % (M) 84 %; Nucleated Red Blood Cells 1 /100 WBC (0-0); Total Cells Counted 200; Toxic Vacuolation Present; WBC 20.4 k/uL (3.8-10.6)
[2018-12-14 17:13] LABS: Large Platelets Present; Poikilocytosis (M) Present; Polychromasia Present; Toxic Granulation Present
[2018-12-14] MEDS ORDERED: DEXTROSE 50%-WATER 50 ML SYRINGE IVP ONE (20:15)
[2018-12-14] MEDS ORDERED: INSULIN REGULAR 100 UNIT/ML VIAL IV ONE (20:15)
[2018-12-14] MEDS ORDERED: ALBUTEROL NEB (CONC) 2.5 MG/0.5 ML INHALATION ONE (20:15)
--- NOTE | 2018-12-14 20:50 | CT ---
EXAMINATION TYPE: CT abdomen pelvis wo con DATE OF EXAM: 12/14/2018 COMPARISON: 03/15/2018 HISTORY: Abdominal pain. Rule out sepsis. CT DLP: 2811 mGycm Automated exposure control for dose reduction was used. TECHNIQUE: Helical acquisition of images was performed from the lung bases through the pelvis. FINDINGS: There is mild subsegmental atelectasis at the lung bases. Heart is enlarged. Stomach appears normal. There is no pleural effusion. Liver and spleen appear within normal limits. There are clips from chol ecystectomy. Bile ducts are not dilated. There is no pancreatic mass. There is no adrenal mass. Kidneys show no hydronephrosis. Ureters are not dilated. There is no retrop eritoneal adenopathy. Bladder distends smoothly. There is no free fluid in the pelvis. There is no in guinal hernia. There is no mesenteric edema. There is anterior abdominal wall ventral hernia that con tains small bowel. I see no sign of a bowel obstruction. There is significant muscle atrophy. There i s anterior abdominal wall surgery on the left side. There appears to be a sinus tract from the skin s urface to the intestinal ventral hernia. There is no sign of free air. There is no ascites. The lumbar spine is intact. I see no bony destructive process. There is no compression fracture.. IMPRESSION: ANTERIOR ABDOMINAL WALL VENTRAL HERNIA APPEARS TO CONTAIN SMALL BOWEL LOOPS WITHOUT EVIDENCE OF OBSTR UCTION. SINUS TRACT AND POSSIBLE ENTEROCUTANEOUS FISTULA. CLINICAL CORRELATION RECOMMENDED. INTESTINA L HERNIA APPEARS NEW COMPARED TO OLD CT SCAN. THERE IS CLEARING OF RIGHT PLEURAL EFFUSION COMPARED TO OLD EXAM.
[2018-12-14 21:25] LABS: Appearance,Urine Cloudy (Clear); Bacteria,Urine Many /hpf; Bilirubin,Urine Negative (Negative); Blood,Urine Negative (Negative); Color,Urine Yellow; Glucose,Urine (UA) Negative (Negative); Ketones,Urine Negative (Negative); Leukocyte Esterase,Urine Large (Negative); Nitrite,Urine Positive (Negative); PH, Urine 5.5 (5.0-8.0); Protein,Urine Trace (Negative); RBC,Urine 1 /hpf (0-5); Specific Gravity,Urine 1.014 (1.001-1.035); Urobilinogen,Urine <2.0 mg/dL (<2.0); WBC,Urine 100 /hpf (0-5)
[2018-12-14] MEDS ORDERED: fentaNYL (PF) 50 MCG/ML 2 ML AMP IVP ONE (21:26)
--- NOTE | 2018-12-14 22:00 | XR ---
Bilateral tibia and fibula. History leg pain. Cellulitis. Comparison none. Technique 4 views each tibia and fibula. FINDINGS: There is soft tissue calcification consistent with venous stasis. There is osteopenia. There is exten sive demineralization of the distal tibia and fibula. I see no focal bone destruction. IMPRESSION: No fracture. No evidence of osteomyelitis. Osteopenia. Soft tissue calcification.
[2018-12-15 02:13] VITALS: BP 110/68; PULSE 87; TEMP 98.8
[2018-12-15] MEDS ORDERED: VANCOMYCIN 2,500 MG in SODIUM CHLORIDE 0.9% 500 ML 500 ML IVPB SCH (12:00)
== END 2018-12-14 23:54 | disposition other institution (70) ==
LOC: EC 15:13
DX: A41.9 Sepsis, unspecified organism (principal); N39.0 Urinary tract infection, site not specified; L03.115 Cellulitis of right lower limb; L03.116 Cellulitis of left lower limb; D72.829 Elevated white blood cell count, unspecified; E87.2 Acidosis; I48.0 Paroxysmal atrial fibrillation; I25.10 Atherosclerotic heart disease of native coronary artery without angina pectoris; E78.5 Hyperlipidemia, unspecified; M19.90 Unspecified osteoarthritis, unspecified site; I13.0 Hypertensive heart and chronic kidney disease with heart failure and stage 1 through stage 4 chronic kidney disease, or unspecified chronic kidney disease; E11.22 Type 2 diabetes mellitus with diabetic chronic kidney disease; N18.2 Chronic kidney disease, stage 2 (mild); I50.9 Heart failure, unspecified; E11.21 Type 2 diabetes mellitus with diabetic nephropathy; E11.40 Type 2 diabetes mellitus with diabetic neuropathy, unspecified; E03.9 Hypothyroidism, unspecified; F41.9 Anxiety disorder, unspecified; F32.9 Major depressive disorder, single episode, unspecified; E66.9 Obesity, unspecified; Z68.43 Body mass index [BMI] 50.0-59.9, adult; G47.30 Sleep apnea, unspecified; Z99.89 Dependence on other enabling machines and devices; Z86.718 Personal history of other venous thrombosis and embolism; Z86.14 Personal history of Methicillin resistant Staphylococcus aureus infection; Z93.3 Colostomy status; Z93.2 Ileostomy status; Z79.890 Hormone replacement therapy; Z79.4 Long term (current) use of insulin; Z79.01 Long term (current) use of anticoagulants; Z79.891 Long term (current) use of opiate analgesic; Z79.899 Other long term (current) drug therapy
CPT/HCPCS: 99291; 51702; 96365; 96367; 96366 ×2; 96375 ×2; 96361; 36415; 94640; 93005; 80053; 82550; 82553; 83605; 84132; 84484; 85025; 85610; 85730; 81001; 87040; 87086; 87077; 87186; 73590; 71045; 74176; J3370; J0692; J3010

== ENCOUNTER 2019-01-20 19:13 | Inpatient (IN) | payer MEDICARE, OTHER ==
[2019-01-20] MEDS ORDERED: SODIUM CHLORIDE 0.9% 1,000 ML IV STA (19:18)
--- NOTE | 2019-01-20 19:26 | ED ---
Altered Mental Status HPI - General Chief Complaint: Altered Mental Status Stated Complaint: Altered Mental Status Time Seen by Provider: 01/20/19 19:18 Source: patient, EMS, RN notes reviewed, old records reviewed Mode of arrival: EMS Limitations: altered mental status, physical limitation - History of Present Illness Initial Comments: This is a 63-year-old female the ER for evaluation. Patient's brought in from extended care facility for altered mental status. Patient herself does not appear to be CURRENTLY. PATIENT ADMITS TO HALLUCINATIONS EARLIER AND DIFFICULTY WITH UNDERSTANDING WHERE SHE WAS WITH DATA WAS ETC. AT THIS TIME SYMPTOMS HAVE RESOLVED. PATIENT IS IS COMPLAINING OF SOME WEAKNESS BUT NOTHING OF URINARY FOR. NO OTHER COMPLAINTS MD Complaint: altered mental status (Now resolved) -: hour(s) Severity: moderate Consistency of Symptoms: waxing and waning Context: recent fever Associated Symptoms: denies other symptoms - Related Data Home Medications Medication Instructions Recorded Confirmed Atorvastatin [Lipitor] 10 mg PO HS 09/16/17 01/20/19 Levothyroxine Sodium [Synthroid] 75 mcg PO DAILY 09/16/17 01/20/19 Midodrine HCl [ProAmatine] 10 mg PO AC-TID 09/16/17 01/20/19 Apixaban [Eliquis] 5 mg PO BID 03/15/18 01/20/19 Lidocaine 2% Gel [Xylocaine Jelly 1 applic TOPICAL DAILY PRN 03/15/18 01/20/19 2%] Metoprolol Tartrate [Lopressor] 100 mg PO BID 03/28/18 01/20/19 Demeclocycline HCl 300 mg PO Q12H 12/14/18 01/20/19 Dicyclomine [Bentyl] 10 mg PO TID 12/14/18 01/20/19 INSULIN ASPART (NovoLOG) [NovoLOG See Protocol SQ ACHS 12/14/18 01/20/19 (formulary)] Ondansetron HCl [Zofran] 8 mg PO Q8H PRN 12/14/18 01/20/19 Ranitidine HCl 150 mg PO BID 12/14/18 01/20/19 Sodium Bicarbonate Tab 1,300 mg PO TID 12/14/18 01/20/19 Spironolactone [Aldactone] 25 mg PO BID 12/14/18 01/20/19 Triamcinolone 0.1% Cream [Kenalog 1 applic TOPICAL HS 12/14/18 01/20/19 0.1% Cream] busPIRone HCL 15 mg PO BID 12/14/18 01/20/19 Acetaminophen-Codeine 300-30mg 1 tab PO Q6H PRN 01/20/19 01/20/19 [Tylenol w/codeine #3] Clotrimazole/Betamethasone Dip 1 applic TOPICAL BID 01/20/19 01/20/19 [Lotrisone Cream] DULoxetine HCL [Cymbalta] 30 mg PO BID 01/20/19 01/20/19 Escitalopram Oxalate [Lexapro] 30 mg PO DAILY 01/20/19 01/20/19 Furosemide [Lasix] 40 mg PO BID 01/20/19 01/20/19 Gabapentin 600 mg PO BID 01/20/19 01/20/19 Insulin Glargine,Hum.rec.anlog 25 unit SQ AC-SUPPER 01/20/19 01/20/19 [Basaglar Kwikpen U-100] Lidocaine Cream 5% 1 applic TOPICAL TID 01/20/19 01/20/19 Metolazone [Zaroxolyn] 2.5 mg PO MO 01/20/19 01/20/19 Potassium Chloride [Klor-Con 10] 10 meq PO BID 01/20/19 01/20/19 Allergies Allergy/AdvReac Type Severity Reaction Status Date / Time No Known Allergies Allergy Verified 01/20/19 19:15 Review of Systems ROS Statement: Those systems with pertinent positive or pertinent negative responses have been documented in the HPI. ROS Other: All systems not noted in ROS Statement are negative. Past Medical History Past Medical History: Atrial Fibrillation, Coronary Artery Disease (CAD), Chest Pain / Angina, Heart Failure, COPD, Diabetes Mellitus, Deep Vein Thrombosis (DVT), Hyperlipidemia, Hypertension, Osteoarthritis (OA), Respiratory Disorder, Skin Disorder, Sleep Apnea/CPAP/BIPAP, Thyroid Disorder, Vascular Disorder Additional Past Medical History / Comment(s): Pt recently admitted 03/06/18 with abdominal pain, live abscess that was drained and transferred to [facility] where a IR drain was placed on 03/08/18. 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 History of Any Multi-Drug Resistant Organisms: MRSA Date of last positivie culture/infection: 2000 MDRO Source:: unkn Past Surgical History: Cholecystectomy, Hernia Repair, Tonsillectomy Additional Past Surgical History / Comment(s): 03/08/18 IR drainage tube placed at [facility] for liver abscess, PICC line insertion 02/2018 at [facility] in L upper arm, 03/06/18 liver abscess drained, 12/2016 exploratory laparatomy with R hemicolectomy and ileostomy, subsequent wound healing issue with wound vac place then 2ndary closure, thyroidectomy.. Past Anesthesia/Blood Transfusion Reactions: No Reported Reaction Past Psychological History: Anxiety, Depression Smoking Status: Never smoker Past Alcohol Use History: None Reported Past Drug Use History: None Reported - Past Family History Sister(s) Family Medical History: Memory Impairment Mother Family Medical History: Coronary Artery Disease (CAD) Additional Family Medical History / Comment(s): History of coronary artery disease Father Family Medical History: Coronary Artery Disease (CAD) General Exam Limitations: altered mental status, physical limitation General appearance: alert, in no apparent distress Head exam: Present: atraumatic, normocephalic, normal inspection Eye exam: Present: normal appearance, PERRL, EOMI. Absent: scleral icterus, conjunctival injection, periorbital swelling ENT exam: Present: normal exam, mucous membranes moist Neck exam: Present: normal inspection. Absent: tenderness, meningismus, lymphadenopathy Respiratory exam: Present: normal lung sounds bilaterally. Absent: respiratory distress, wheezes, rales, rhonchi, stridor Cardiovascular Exam: Present: regular rate, normal rhythm, normal heart sounds. Absent: systolic murmur, diastolic murmur, rubs, gallop, clicks GI/Abdominal exam: Present: soft, normal bowel sounds. Absent: distended, tenderness, guarding, rebound, rigid Extremities exam: Present: normal inspection, full ROM, normal capillary refill. Absent: tenderness, pedal edema, joint swelling, calf tenderness Back exam: Present: normal inspection Neurological exam: Present: alert, oriented X3, CN II-XII intact Psychiatric exam: Present: normal affect, normal mood Skin exam: Present: warm, dry, intact, normal color. Absent: rash Course Vital Signs 01/20/19 19:15 Temperature 97.5 F L Pulse Rate 97 Respiratory 18 Rate Blood Pressure 123/104 O2 Sat by Pulse 96 Oximetry - Reevaluation(s) Reevaluation #1: 01/20/19 20:26 Medical record is reviewed Reevaluation #2: 01/20/19 20:26 Patient still remains without significant altered mental status or focal neurological deficit. Medical Decision Making - Medical Decision Making 63 female the ER with positive significant urinary tract infection. Patient was admitted on IV antibiotics - Lab Data Result diagrams: 01/20/19 19:47 Lab Results 01/20/19 01/20/19 01/20/19 Range/Units 19:47 19:47 19:47 WBC 28.3 H (3.8-10.6) k/uL RBC 5.13 (3.80-5.40) m/uL Hgb 13.2 (11.4-16.0) gm/dL Hct 42.7 (34.0-46.0) % MCV 83.1 (80.0-100.0) fL MCH 25.6 (25.0-35.0) pg MCHC 30.8 L (31.0-37.0) g/dL RDW 16.2 H (11.5-15.5) % Plt Count 408 (150-450) k/uL Neutrophils % 87 % Lymphocytes % 5 % Monocytes % 7 % Eosinophils % 1 % Basophils % 0 % Neutrophils # 24.7 H (1.3-7.7) k/uL Lymphocytes # 1.4 (1.0-4.8) k/uL Monocytes # 1.9 H (0-1.0) k/uL Eosinophils # 0.1 (0-0.7) k/uL Basophils # 0.0 (0-0.2) k/uL Anisocytosis Slight POC Glucose (mg/dL) (75-99) mg/dL POC Glu Huc ID Plasma Lactic Acid Ronnie 2.8 H* (0.7-2.0) mmol/L Urine Color Yellow Urine Appearance Cloudy H (Clear) Urine pH 6.0 (5.0-8.0) Ur Specific [place] 1.010 (1.001-1.035) Urine Protein Negative (Negative) Urine Glucose (UA) Negative (Negative) Urine Ketones Negative (Negative) Urine Blood Trace H (Negative) Urine Nitrite Negative (Negative) Urine Bilirubin Negative (Negative) Urine Urobilinogen <2.0 (<2.0) mg/dL Ur Leukocyte Esterase Large H (Negative) Urine RBC 7 H (0-5) /hpf Urine WBC >182 H (0-5) /hpf Urine WBC Clumps Many H (None) /hpf Ur Squamous Epith Cells 2 (0-4) /hpf Urine Bacteria Rare H (None) /hpf Urine Mucus Rare H (None) /hpf 01/20/19 Range/Units 19:53 WBC (3.8-10.6) k/uL RBC (3.80-5.40) m/uL Hgb (11.4-16.0) gm/dL Hct (34.0-46.0) % MCV (80.0-100.0) fL MCH (25.0-35.0) pg MCHC (31.0-37.0) g/dL RDW (11.5-15.5) % Plt Count (150-450) k/uL Neutrophils % % Lymphocytes % % Monocytes % % Eosinophils % % Basophils % % Neutrophils # (1.3-7.7) k/uL Lymphocytes # (1.0-4.8) k/uL Monocytes # (0-1.0) k/uL Eosinophils # (0-0.7) k/uL Basophils # (0-0.2) k/uL Anisocytosis POC Glucose (mg/dL) 128 H (75-99) mg/dL POC Glu Huc ID Geeta Weston Plasma Lactic Acid Ronnie (0.7-2.0) mmol/L Urine Color Urine Appearance (Clear) Urine pH (5.0-8.0) Ur Specific [place] (1.001-1.035) Urine Protein (Negative) Urine Glucose (UA) (Negative) Urine Ketones (Negative) Urine Blood (Negative) Urine Nitrite (Negative) Urine Bilirubin (Negative) Urine Urobilinogen (<2.0) mg/dL Ur Leukocyte Esterase (Negative) Urine RBC (0-5) /hpf Urine WBC (0-5) /hpf Urine WBC Clumps (None) /hpf Ur Squamous Epith Cells (0-4) /hpf Urine Bacteria (None) /hpf Urine Mucus (None) /hpf - EKG Data -: EKG Interpreted by Me (EKG shows A. fib rate of 92, QRS 74, QTc 469) Disposition Clinical Impression: Morbid obesity, UTI (urinary tract infection) Disposition: ADMITTED IP TO THIS HOSP Condition: Undetermined Is patient prescribed a controlled substance at d/c from ED?: No Referrals: Angela Powell MD [Primary Care Provider] - 1-2 days
[2019-01-20 19:54] LABS: Glucose,Whole Blood 128 mg/dL (75-99)
[2019-01-20 20:16] LABS: Anisocytosis Slight; Basophils % (A) 0 %; Eosinophils # (A) 0.1 k/uL (0-0.7); Eosinophils % (A) 1 %; HCT 42.7 % (34.0-46.0); HGB 13.2 gm/dL (11.4-16.0); Lymphocytes # (A) 1.4 k/uL (1.0-4.8); Lymphocytes % (A) 5 %; MCH 25.6 pg (25.0-35.0); MCHC 30.8 g/dL (31.0-37.0); MCV 83.1 fL (80.0-100.0); Mean Platelet Volume 8.5; Monocytes # (A) 1.9 k/uL (0-1.0); Monocytes % (A) 7 %; Neutrophils # (A) 24.7 k/uL (1.3-7.7); Neutrophils % (A) 87 %; Platelet Count 408 k/uL (150-450); RBC 5.13 m/uL (3.80-5.40); RDW 16.2 % (11.5-15.5); WBC 28.3 k/uL (3.8-10.6)
[2019-01-20 20:18] LABS: Appearance,Urine Cloudy (Clear); Bacteria,Urine Rare /hpf; Bilirubin,Urine Negative (Negative); Blood,Urine Trace (Negative); Color,Urine Yellow; Glucose,Urine (UA) Negative (Negative); Ketones,Urine Negative (Negative); Leukocyte Esterase,Urine Large (Negative); Mucus,Urine Rare /hpf; Nitrite,Urine Negative (Negative); Protein,Urine Negative (Negative); RBC,Urine 7 /hpf (0-5); Squamous Epithelial Cell,Urine 2 /hpf (0-4); Urobilinogen,Urine <2.0 mg/dL (<2.0); WBC,Urine >182 /hpf (0-5)
--- NOTE | 2019-01-20 20:19 | XR ---
EXAMINATION TYPE: XR chest 2V DATE OF EXAM: 01/20/2019 COMPARISON: Chest x-ray December 14, 2018. HISTORY: Weakness. TECHNIQUE: Frontal and lateral views of the chest are obtained. FINDINGS: Exam noted suboptimal due to patient's underlying large body habitus. There is chronic elle l changes without suspicious focal air space opacity, pleural effusion, or pneumothorax seen. The ca rdiac silhouette size remains enlarged. The osseous structures are intact. IMPRESSION: Chronic right pleural changes and cardiomegaly without acute pulmonary process.
[2019-01-20] MEDS ORDERED: SODIUM CHLORIDE 0.9% 1,000 ML IV ONE (20:27)
[2019-01-20] MEDS ORDERED: MORPHINE SULFATE 4 MG/ML SYRINGE IVP PRN (21:36)
[2019-01-20] MEDS ORDERED: MORPHINE SULFATE 4 MG/ML SYRINGE IVP STA (21:36)
[2019-01-20 21:39] LABS: INR 1.1 (<1.2); Partial Thromboplastin Time 27.2 sec (22.0-30.0); Prothrombin Time 11.8 sec (9.0-12.0)
[2019-01-20] MEDS ORDERED: ONDANSETRON 4 MG/2 ML VIAL IVP PRN (22:53)
[2019-01-20] MEDS ORDERED: ACETAMINOPHEN TAB 325 MG TAB PO PRN (22:53)
[2019-01-20] MEDS: INSULIN ASPART (NovoLOG) 100 UNIT/ML VIAL SQ SCH (23:03)
[2019-01-20 23:08] LABS: Albumin 2.2 g/dL (3.5-5.0); Calcium 8.5 mg/dL (8.4-10.2); Magnesium 1.5 mg/dL (1.6-2.3); Phosphorus 5.3 mg/dL (2.5-4.5); Total Bilirubin 0.9 mg/dL (0.2-1.3); Total Protein 4.6 g/dL (6.3-8.2)
[2019-01-20] MEDS ORDERED: GABAPENTIN 300 MG CAP PO SCH (23:30)
[2019-01-21] MEDS: DICYCLOMINE 10 MG CAP PO SCH ×4 (00:36→21:31)
[2019-01-21] MEDS: GABAPENTIN 300 MG CAP PO SCH ×3 (00:36→21:32)
[2019-01-21] MEDS: busPIRone HCl 5 MG TAB PO SCH ×3 (00:37→21:47)
[2019-01-21] MEDS: APIXABAN 5 MG TAB PO SCH ×3 (00:37→21:32)
[2019-01-21] MEDS: DEMECLOCYCLINE 150 MG TAB PO SCH ×3 (00:37→21:31)
[2019-01-21] MEDS: DULoxetine HCL 30 MG CAPSULE.DR PO SCH ×3 (00:37→21:32)
[2019-01-21] MEDS: FAMOTIDINE 20 MG TAB PO SCH ×2 (00:37→10:48)
[2019-01-21] MEDS: ATORVASTATIN 10 MG TAB PO SCH ×2 (00:37→21:32)
[2019-01-21] MEDS: SODIUM BICARBONATE TAB 650 MG TAB PO SCH ×3 (00:37→21:32)
[2019-01-21 01:11] LABS: Glucose,Whole Blood 163 mg/dL (75-99)
[2019-01-21] MEDS ORDERED: SODIUM CHLORIDE 0.9% 500 ML 500 ML IV ONE (01:52)
[2019-01-21] MEDS ORDERED: SODIUM CHLORIDE 0.9% 1,000 ML IV ONE ×5 (01:53→01:54)
[2019-01-21 02:32] LABS: Glucose,Whole Blood 147 mg/dL (75-99)
[2019-01-21 06:16] LABS: Albumin 1.9 g/dL (3.5-5.0); Calcium 7.4 mg/dL (8.4-10.2); Potassium 4.7 mmol/L (3.5-5.1); Total Bilirubin 0.7 mg/dL (0.2-1.3); Total Protein 4.2 g/dL (6.3-8.2)
[2019-01-21 06:33] LABS: Anisocytosis Slight; HCT 40.1 % (34.0-46.0); HGB 12.3 gm/dL (11.4-16.0); Hypochromasia Slight; MCH 26.1 pg (25.0-35.0); MCHC 30.7 g/dL (31.0-37.0); MCV 85.2 fL (80.0-100.0); Mean Platelet Volume 7.5; Platelet Count 409 k/uL (150-450); RBC 4.71 m/uL (3.80-5.40); RDW 16.2 % (11.5-15.5)
[2019-01-21] MEDS: LEVOTHYROXINE 75 MCG TAB PO SCH (07:04)
[2019-01-21] MEDS: MIDODRINE 5 MG TAB PO SCH ×3 (07:04→18:16)
[2019-01-21 07:14] LABS: Glucose,Whole Blood 177 mg/dL (75-99)
[2019-01-21] MEDS: INSULIN ASPART (NovoLOG) 100 UNIT/ML VIAL SQ SCH ×4 (07:16→21:32)
--- NOTE | 2019-01-21 07:49 | XR ---
EXAMINATION TYPE: XR chest 1V portable DATE OF EXAM: 01/21/2019 Comparison: 01/20/2019 Clinical History: 63-year-old female SOB Findings: Leftward patient rotation alters the normal cardiac and mediastinal contours. Heart remains borderlin e enlarged. Left base is underpenetrated and not well assessed. Mild interstitial prominence is uncha nged. Some patchy retrocardiac opacity is demonstrated. No sizable effusion. Impression: Similar borderline cardiomegaly. Interstitial changes appear in part chronic. There is some patchy re trocardiac atelectasis or infiltrate.
[2019-01-21 08:58] LABS: Myelocytes # (M) 0.27 k/uL (0); Myelocytes % 1 %; Neutrophils % (M) 89 %; Nucleated Red Blood Cells 1 /100 WBC (0-0); Total Cells Counted 200
[2019-01-21 08:59] LABS: Lymphocytes # (M) 1.87 k/uL (1.0-4.8); Monocytes # (M) 1.07 k/uL (0-1.0); Neutrophils # (M) 23.76 k/uL (1.3-7.7); WBC 26.7 k/uL (3.8-10.6)
[2019-01-21] MEDS ORDERED: SODIUM BICARBONATE TAB 650 MG TAB PO SCH (09:00)
[2019-01-21] MEDS ORDERED: METOPROLOL TARTRATE 50 MG TAB PO SCH (09:00)
[2019-01-21] MEDS ORDERED: FUROSEMIDE 40 MG TAB PO SCH (09:00)
[2019-01-21] MEDS ORDERED: ESCITALOPRAM 10 MG TAB PO SCH (09:00)
--- NOTE | 2019-01-21 10:08 | P.HPIM ---
History of Present Illness H&P Date: 01/21/19 Chief Complaint: Sepsis, UTI, altered mental status, acute kidney injury, severe hyponatremi 63-year-old morbidly obese female one of Dr. Powell's patient from [facility] on [facility] who has been there for the last 2 years who has quite bed complication from perforated diverticuli with the strangulated ventral hernia post exploratory laparotomy and ileostomy with right-sided hemicolectomy in December 2016 with ischemic bowel found at the time who had wound VAC and still have an open area connected with her ostomy connected to a draining system go to ostomy bag. Also patient has been treated for multiple decubsacral and buttocks area along with chronic cellulitis of the lower extremity with a chronic edema. She is known to have chronic history of hyponatremia has been on demeclocycline for long time. Patient has morbid obesity her mobility is limited to bedrest 99% out of the time hardly move at all. Has been seen by one care professionals. Patient presented to the emergency department at 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 Her nurse send her for evaluation of urine was very positive and white blood cell was in the high 20,000 patient was diagnosed with septic with moderately elevated lactic acid was started on hydration IV antibiotics consult infectious disease and admit patient to the hospital for the above problem. Shortly after arriving to the floor patient blood pressure declined quite bed with elevated lactic acid still not doing well with her fluid resuscitation end ed up being transferred to the intensive care unit. Review of Systems CONSTITUTIONAL: Well-developed no acute respiratory distress. Silvia obesity with mild confusion. EYES: No icterus sclerae, no conjunctivitis. EARS, NOSE, MOUTH, THROAT, and FACE: No sore throat, lymphadenopathy, carotid bruits or deformity. RESPIRATORY: Slight shortness of breath with wheezes. CARDIOVASCULAR: No CP, positive PND orthopnea or palpitation. GASTROINTESTINAL: Mild abdominal discomfort with significant drainage from her draining system and ostomy all connected and one bag. GENITOURINARY: Mild burning discomfort with history of kidney stone and worsening irritation and has indwelling Askew catheter INTEGUMENT/BREAST: Multiple soft tissue involvement with decub in the sacral the buttocks area bilaterally along with the legs. HEMATOLOGIC/LYMPHATIC: Negative for bleed or purpura. MUSCULOSKELTAL: Negative for Myalgia or arthralgia. NEURLOGICAL: Mild confusion and altered mental status. BEHAVIORAL/PSYCH: Worsening dementia. ENDOCRINE: Negative. Past Medical History Past Medical History: Atrial Fibrillation, Coronary Artery Disease (CAD), Chest Pain / Angina, Heart Failure, COPD, Diabetes Mellitus, Deep Vein Thrombosis (DVT), Hyperlipidemia, Hypertension, Osteoarthritis (OA), Respiratory Disorder, Skin Disorder, Sleep Apnea/CPAP/BIPAP, Thyroid Disorder, Vascular Disorder Additional Past Medical History / Comment(s): Pt recently admitted 03/06/18 with abdominal pain, live abscess that was drained and transferred to [facility] where a IR drain was placed on 03/08/18. 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 History of Any Multi-Drug Resistant Organisms: MRSA Date of last positivie culture/infection: 2000 MDRO Source:: unkn Past Surgical History: Cholecystectomy, Hernia Repair, Tonsillectomy Additional Past Surgical History / Comment(s): 03/08/18 IR drainage tube placed at [facility] for liver abscess, PICC line insertion 02/2018 at [facility] in L upper arm, 03/06/18 liver abscess drained, 12/2016 exploratory laparatomy with R hemicolectomy and ileostomy, subsequent wound healing issue with wound vac place then 2ndary closure, thyroidectomy.. Past Anesthesia/Blood Transfusion Reactions: No Reported Reaction Past Psychological History: Anxiety, Depression Additional Psychological History / Comment(s): Pt resides at [facility] on the [place]. She is wheelchair bound. Smoking Status: Never smoker Past Alcohol Use History: None Reported Additional Past Alcohol Use History / Comment(s): Patient currently resides at [facility] and has been there for urinary half. She is wheelchair bound. Past Drug Use History: None Reported - Past Family History Sister(s) Family Medical History: Memory Impairment Mother Family Medical History: Coronary Artery Disease (CAD) Additional Family Medical History / Comment(s): History of coronary artery disease Father Family Medical History: Coronary Artery Disease (CAD) Medications and Allergies Home Medications Medication Instructions Recorded Confirmed Type Atorvastatin [Lipitor] 10 mg PO HS 09/16/17 01/20/19 History Levothyroxine Sodium [Synthroid] 75 mcg PO DAILY 09/16/17 01/20/19 History Midodrine HCl [ProAmatine] 10 mg PO AC-TID 09/16/17 01/20/19 History Apixaban [Eliquis] 5 mg PO BID 03/15/18 01/20/19 History Lidocaine 2% Gel [Xylocaine Jelly 1 applic TOPICAL DAILY PRN 03/15/18 01/20/19 History 2%] Metoprolol Tartrate [Lopressor] 100 mg PO BID 03/28/18 01/20/19 History Demeclocycline HCl 300 mg PO Q12H 12/14/18 01/20/19 History Dicyclomine [Bentyl] 10 mg PO TID 12/14/18 01/20/19 History INSULIN ASPART (NovoLOG) [NovoLOG See Protocol SQ ACHS 12/14/18 01/20/19 History (formulary)] Ondansetron HCl [Zofran] 8 mg PO Q8H PRN 12/14/18 01/20/19 History Ranitidine HCl 150 mg PO BID 12/14/18 01/20/19 History Sodium Bicarbonate Tab 1,300 mg PO TID 12/14/18 01/20/19 History Spironolactone [Aldactone] 25 mg PO BID 12/14/18 01/20/19 History Triamcinolone 0.1% Cream [Kenalog 1 applic TOPICAL HS 12/14/18 01/20/19 History 0.1% Cream] busPIRone HCL 15 mg PO BID 12/14/18 01/20/19 History Acetaminophen-Codeine 300-30mg 1 tab PO Q6H PRN 01/20/19 01/20/19 History [Tylenol w/codeine #3] Clotrimazole/Betamethasone Dip 1 applic TOPICAL BID 01/20/19 01/20/19 History [Lotrisone Cream] DULoxetine HCL [Cymbalta] 30 mg PO BID 01/20/19 01/20/19 History Escitalopram Oxalate [Lexapro] 30 mg PO DAILY 01/20/19 01/20/19 History Furosemide [Lasix] 40 mg PO BID 01/20/19 01/20/19 History Gabapentin 600 mg PO BID 01/20/19 01/20/19 History Insulin Glargine,Hum.rec.anlog 25 unit SQ AC-SUPPER 01/20/19 01/20/19 History [Basaglar Kwikpen U-100] Lidocaine Cream 5% 1 applic TOPICAL TID 01/20/19 01/20/19 History Metolazone [Zaroxolyn] 2.5 mg PO MO 01/20/19 01/20/19 History Potassium Chloride [Klor-Con 10] 10 meq PO BID 01/20/19 01/20/19 History Allergies Allergy/AdvReac Type Severity Reaction Status Date / Time No Known Allergies Allergy Verified 01/20/19 19:15 Physical Exam Vitals: Vital Signs Temp Pulse Pulse Resp BP BP Pulse Ox 01/21/19 09:00 101 H 16 93/71 01/21/19 08:00 16 109/68 87 L 01/21/19 07:30 85 15 111/96 98 01/21/19 07:00 88 14 153/136 98 01/21/19 06:30 108 H 9 L 101/74 01/21/19 06:00 109 H 16 96/72 01/21/19 05:30 13 146/116 01/21/19 05:00 100 18 95/71 82 L 01/21/19 04:30 107 H 12 92/62 79 L 01/21/19 04:00 98.2 F 100 16 99/72 98 01/21/19 03:30 100 13 88/32 98 01/21/19 03:00 19 115/71 01/21/19 02:30 16 115/71 97 01/21/19 02:24 101 H 14 100 01/20/19 23:25 97.4 F L 110 H 20 79/59 94 L 01/20/19 21:35 97.3 F L 98 18 106/63 99 01/20/19 21:30 92 78/54 75 L 01/20/19 21:00 98 109/81 91 L 01/20/19 20:30 109 H 68/31 98 01/20/19 20:28 91 18 109/81 95 01/20/19 20:27 99 01/20/19 19:57 105 H 01/20/19 19:15 97.5 F L 97 18 123/104 96 Intake and Output 01/20/19 01/21/19 01/21/19 22:59 06:59 14:59 Intake Total 200 5900 Output Total 780 1850 50 Balance -580 4050 -50 Intake: IV 5500 Sodium Chloride 0.9% 1, 5000 000 ml @ 999 mls/hr IV . Q1H1M ONE Rx#:[id number] Sodium Chloride 0.9% 500 500 ml 500 ml @ 999 mls/hr IV .Q31M ONE Rx#:[id number] Oral 200 400 Output: Urine 380 650 50 Uretheral (Askew) 380 Stool 400 1200 Other: Voiding Method Indwelling Catheter Weight 165.561 kg General Appearance: Alert, cooperative, no distress, morbidly obese and slightly but negative when talking to her. Neck HEENT: Supple, no lymphadenopathy, no thyroid enlargement, no carotid bruits. Lungs: Decreased breath some bilaterally with fine rhonchi no crackles mild expiratory wheezes. Chest Wall: Decrease expansion with deep inspiration no tenderness and no deformity was found on exam, no costochondral pain or discomfort. Heart: Regular rate and rhythm, S1, S2 normal, no murmur, rub or gallop. Possible S3 positive JVD Back: Symmetric, mild curvature and scoliosis mild CVA tenderness specially in the right side with the lower part of her sacrum and buttocks area had almost stage II decub diffuse on 3 larger area. Abdomen: Soft positive bowel sound there is surgical site with an open area on the left side connected with her ostomy and all collected by collection bag similar to TIANA with wound VAC. Extremities: Significant edema with slight discoloration from the knee down and slight redness and oozing area in the lower part of the leg bilaterally. Pulses: 2+ and symmetric. Skin: Skin color, texture, tugor normal, no rashes or lesions. Neurologic: Alert oriented x3 cranial nerves II through XII intact, no motor deficit, no abnormal balance or gait. Results CBC & Chem 7: 01/21/19 05:39 01/21/19 05:39 Labs: Abnormal Lab Results - Last 24 Hours (Table) 01/20/19 01/20/1901/20/19 Range/Units 19:47 19:47 19:47 WBC 28.3 H (3.8-10.6) k/uL MCHC 30.8 L (31.0-37.0) g/dL RDW 16.2 H (11.5-15.5) % Neutrophils # 24.7 H (1.3-7.7) k/uL Neutrophils # (Manual) (1.3-7.7) k/uL Monocytes # 1.9 H (0-1.0) k/uL Monocytes # (Manual) (0-1.0) k/uL Myelocytes # (Manual) (0) k/uL Nucleated RBCs (0-0) /100 WBC Sodium (137-145) mmol/L Potassium (3.5-5.1) mmol/L Chloride (98-107) mmol/L BUN (7-17) mg/dL Creatinine (0.52-1.04) mg/dL Glucose (74-99) mg/dL POC Glucose (mg/dL) (75-99) mg/dL Plasma Lactic Acid Ronnie 2.8 H* (0.7-2.0) mmol/L Calcium (8.4-10.2) mg/dL Phosphorus (2.5-4.5) mg/dL Magnesium (1.6-2.3) mg/dL Alkaline Phosphatase (38-126) U/L Total Protein (6.3-8.2) g/dL Albumin (3.5-5.0) g/dL Urine Appearance Cloudy H (Clear) Urine Blood Trace H (Negative) Ur Leukocyte Esterase Large H (Negative) Urine RBC 7 H (0-5) /hpf Urine WBC >182 H (0-5) /hpf Urine WBC Clumps Many H (None) /hpf Urine Bacteria Rare H (None) /hpf Urine Mucus Rare H (None) /hpf 01/20/19 01/20/19 01/21/19 Range/Units 19:53 22:37 00:06 WBC (3.8-10.6) k/uL MCHC (31.0-37.0) g/dL RDW (11.5-15.5) % Neutrophils # (1.3-7.7) k/uL Neutrophils # (Manual) (1.3-7.7) k/uL Monocytes # (0-1.0) k/uL Monocytes # (Manual) (0-1.0) k/uL Myelocytes # (Manual) (0) k/uL Nucleated RBCs (0-0) /100 WBC Sodium 123 L (137-145) mmol/L Potassium 6.0 H (3.5-5.1) mmol/L Chloride 83 L (98-107) mmol/L BUN 100 H (7-17) mg/dL Creatinine 1.96 H (0.52-1.04) mg/dL Glucose 147 H (74-99) mg/dL POC Glucose (mg/dL) 128 H (75-99) mg/dL Plasma Lactic Acid Ronnie 3.4 H* (0.7-2.0) mmol/L Calcium (8.4-10.2) mg/dL Phosphorus 5.3 H (2.5-4.5) mg/dL Magnesium 1.5 L (1.6-2.3) mg/dL Alkaline Phosphatase 218 H (38-126) U/L Total Protein 4.6 L (6.3-8.2) g/dL Albumin 2.2 L (3.5-5.0) g/dL Urine Appearance (Clear) Urine Blood (Negative) Ur Leukocyte Esterase (Negative) Urine RBC (0-5) /hpf Urine WBC (0-5) /hpf Urine WBC Clumps (None) /hpf Urine Bacteria (None) /hpf Urine Mucus (None) /hpf 01/21/19 01/21/19 01/21/19 Range/Units 01:07 02:24 05:39 WBC 26.7 H (3.8-10.6) k/uL MCHC 30.7 L (31.0-37.0) g/dL RDW 16.2 H (11.5-15.5) % Neutrophils # (1.3-7.7) k/uL Neutrophils # (Manual) 23.76 H (1.3-7.7) k/uL Monocytes # (0-1.0) k/uL Monocytes # (Manual) 1.07 H (0-1.0) k/uL Myelocytes # (Manual) 0.27 H (0) k/uL Nucleated RBCs 1 H (0-0) /100 WBC Sodium (137-145) mmol/L Potassium (3.5-5.1) mmol/L Chloride (98-107) mmol/L BUN (7-17) mg/dL Creatinine (0.52-1.04) mg/dL Glucose (74-99) mg/dL POC Glucose (mg/dL) 163 H 147 H (75-99) mg/dL Plasma Lactic Acid Ronnie (0.7-2.0) mmol/L Calcium (8.4-10.2) mg/dL Phosphorus (2.5-4.5) mg/dL Magnesium (1.6-2.3) mg/dL Alkaline Phosphatase (38-126) U/L Total Protein (6.3-8.2) g/dL Albumin (3.5-5.0) g/dL Urine Appearance (Clear) Urine Blood (Negative) Ur Leukocyte Esterase (Negative) Urine RBC (0-5) /hpf Urine WBC (0-5) /hpf Urine WBC Clumps (None) /hpf Urine Bacteria (None) /hpf Urine Mucus (None) /hpf 01/21/19 01/21/19 Range/Units 05:39 06:58 WBC (3.8-10.6) k/uL MCHC (31.0-37.0) g/dL RDW (11.5-15.5) % Neutrophils # (1.3-7.7) k/uL Neutrophils # (Manual) (1.3-7.7) k/uL Monocytes # (0-1.0) k/uL Monocytes # (Manual) (0-1.0) k/uL Myelocytes # (Manual) (0) k/uL Nucleated RBCs (0-0) /100 WBC Sodium 127 L (137-145) mmol/L Potassium (3.5-5.1) mmol/L Chloride 91 L (98-107) mmol/L BUN 88 H (7-17) mg/dL Creatinine 1.75 H (0.52-1.04) mg/dL Glucose 147 H (74-99) mg/dL POC Glucose (mg/dL) 177 H (75-99) mg/dL Plasma Lactic Acid Ronnie (0.7-2.0) mmol/L Calcium 7.4 L (8.4-10.2) mg/dL Phosphorus (2.5-4.5) mg/dL Magnesium (1.6-2.3) mg/dL Alkaline Phosphatase 211 H (38-126) U/L Total Protein 4.2 L (6.3-8.2) g/dL Albumin 1.9 L (3.5-5.0) g/dL Urine Appearance (Clear) Urine Blood (Negative) Ur Leukocyte Esterase (Negative) Urine RBC (0-5) /hpf Urine WBC (0-5) /hpf Urine WBC Clumps (None) /hpf Urine Bacteria (None) /hpf Urine Mucus (None) /hpf Microbiology - Last 24 Hours (Table) 01/20/19 19:47 Urine Culture - Preliminary Urine,Catheterized Thrombosis Risk Factor Assmnt - DVT/VTE Prophylaxis DVT/VTE Prophylaxis: Pharmacologic Prophylaxis ordered, Mechanical Prophylaxis ordered - Choose All That Apply Any of the Below Risk Factors Present?: Yes Each Factor Represents 1 point: Obesity (BMI >25), Swollen legs (current) Other Risk Factors: Yes Each Risk Factor Represents 2 Points: Age 61-74 years Each Risk Factor Represents 3 Points: History of DVT/PE Thrombosis Risk Factor Assessment Total Risk Factor Score: 7 Thrombosis Risk Factor Assessment Level: High Risk Assessment and Plan Plan: 1 sepsis: Most likely from UTI and from her decub, blood culture still pending patient had 2 g of Rocephin and if not ALLERGIC Will add smaller dose of L evaquin 250 mg daily along with vancomycin consult infectious disease. 2 severe acute UTI causing sepsis with significantly elevated white blood cell and lactic acid will continue antibiotics awaiting for the final culture from her urine. 3 decub ulcer continue topical care continue dressing for now. 4 severe hyponatremia: Most likely SIADH and aggravated by the infection she is on multi diuretics which could be another contributing factor continue to watch sodium on daily basis remain on demeclocycline which I don't think it's working at all at this point we'll consult nephrology patient can benefit from being on Sensipar and also fluid restriction. 5 acute kidney injury with chronic kidney disease with significant worsening kidney function continue to watch urine output Askew catheter remain in watching BUN/creatinine daily basis. 6 multiple mouth ulcer: Most likely aphthous will continue Mycelex ирина and if available nystatin swish and swallow 7 large area of ostomy and open wound in the abdominal region has been using a drainage system on it along with ostomy continue current management. 8 type 2 diabetes on insulin continue Levemir and NovoLog continue Accu-Chek with sliding scales coverage. 9 A. fib with RVR: Pulse rates under control currently on Lopressor still on Eliquis. 11 chronic hypotension: Has been on midodrine and hold medication if systolic blood pressure above 100. 10 post ileostomy secondary to strangulated ventral hernia with ischemic bowel post surgery with peritonitis still dealing with the consequences and complication related to it. 12 hypothyroidism: Remain on levothyroxine 75 g daily. 13 chronic depression: Has been on BuSpar 15 mg twice a day along with Lexapro 30 mg daily and Cymbalta 30 mg twice a day. 14 anasarca: Has been on Aldactone, metolazone and furosemide. 15 chronic depression: Has been on gabapentin 600 mg twice a day. 16 chronic pain syndrome: Has been on Tylenol with Codeine along with gabapentin. 17 chronic hyponatremia: With most likely failure to treatment with demeclocycline continue water restriction and continue to see nephrology from here on. 18 GI prophylaxis: Patient will be on pantoprazole 40 mg daily. 19 CODE STATUS: DO NOT RESUSCITATE. Admit patient to inpatient status for more than 2 nights.
[2019-01-21] MEDS ORDERED: VANCOMYCIN 1,250 MG in SODIUM CHLORIDE 0.9% 250 ML IVPB SCH (10:15)
--- NOTE | 2019-01-21 10:27 | P.CNPUL ---
History of Present Illness Consult date: 01/21/19 Chief complaint: Altered mental status History of present illness: This is a 63-year-old female patient of Dr. Powell who resides at [facility] for the past year and a half, wheelchair-bound. Patient has history of treatment at [facility] with Dr. Yee. She had a strangulated ventral hernia and underwent exploratory laparotomy and ileostomy with right hemicolectomy 12/19/2016 with ischemic bowel found. She had a wound VAC placed and subsequently a secondary closure on 12/12/2016. She was diagnosed with a Staphylococcus epidermidis bacteremia possibly related to a PICC line and underwent IV antibiotics with daptomycin by subsequent thrombosis the left arm/axillary. She went to [facility] with TPN and IV antibiotics and was subsequently discharged to [facility]. 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 Patient was hospitalized from March 06 through March 09 for hepatic abscess and underwent successful CT-guided drainage catheter insertion in the hepatic abscess with return of 400 mL of purulent material. Dr. Sky was recommended transfer to surgery at [facility] for hepatology surgeon consult and may need actual surgical debridement of her liver for this extensive disease process. At [facility], liver abscess was drained to accordion drain and patient was continued on meropenem. She had a PICC line placed and patient was discharged back to [facility] on Invanz 1 g daily. At the half-way, altered mental status and she was hospitalized back in February [address] at [facility] CT of the brain showed mild atrophy and otherwise negative. Patient was admitted to the selective care unit and neurology consult requested. Abdomen brain showed no recent infarct. There was focal posterior left frontal subcortical edema suggestive of subacute infarct. No enhancement was seen. There was mild to minimal chronic small vessel changes. MRI of the cervical spine was suboptimal. There was scoliotic curvature of the thoracic spine with degenerative changes involving C3 and C4 and C5-C6. EEG of the brain was within normal limits. CAT scan of the abdomen and pelvis was repeated and the patient showed complete interval resolution of the right posterior perihepatic fluid/abscess. The patient was seen by Dr. Ma. The patient was seen by Dr. Pope. Following that the patient was transferred back to [facility] on the [place]. He was seen in follow-up CAT scan of the abdomen and pelvis that was done on 12/14/2018 that showed anterior abdominal wall ventral hernia with small bowel loops without evidence of any obstruction. Sinus tach and possible enterocutaneous fistula was again seen. There was clearing of the right-sided pleural effusion. The liver and the spleen appeared to be within normal limits. The patient had a cholecystectomy clips. On 2018 the patient came into the emergency department. She was at [facility] on the [place]. Patient reported hallucination and she was visual hallucinations. The patient had difficulty in understanding where she was. She was not able to identify the president. She didn't know where she was. She wasn't able to tell the date and the month. White cell count was 28.3. Her hemoglobin was at 13.2. Her urinalysis was abnormal and the patient has extensive number of white cell counts and the patient has a permanent Askew catheter in place. The sodium level was 123 with a potassium level of 6.0 and the and was 100 and it creatinine was 1.96. She also had a lactic acid level that peaked at 3.4. The pressure was also low. At that point, the patient got transferred to the intensive care units. It was noted that at one point her blood pressure dropped to 68/31 and 78/54. She was given a total of 6 L of IV fluids. She was given blood culture and urine culture. Currently she is on room air oxygen. She is not requiring any pressors. Her blood pressure is normalized. White cell count is improving. Creatinine is also on the decline. She was given a dose of Rocephin IV. Her cardiac rhythm is sinus. He is on demeclocycline which I'm assuming this was given to her for chronic hyponatremia. She is also on oral Lasix at the [facility]. Long-term anticoagulation with Eliquis as the patient has previous history of DVT and chronic atrial fibrillation. Her current rhythm is sinus. She still has a fistula in the abdominal wall which is a very large fistula is functional. She has chronic stage II 1 her coccyx. She has chronic ulceration lower extremities bilaterally and she has edema and symptoms fluid weeping from the skin surface. Review of Systems Constitutional: Reports chronic pain, Reports daytime sleepiness, Reports fatigue, Reports lethargy, Reports malaise, Reports poor appetite, Reports we akness, Reports weight gain Eyes: denies as per HPI, denies blurred vision, denies bulging eye, denies decreased vision, denies diplopia, denies discharge, denies dry eye, denies irritation, denies itching, denies pain, denies photophobia, denies loss of peripheral vision, denies loss of vision, denies tunnel vision/blind spots Ears: deny: decreased hearing, ear discharge, earache, tinnitus Ears, nose, mouth and throat: Denies headache, Denies sore throat Breasts: absent: as per HPI, change in shape, gynecomastia, masses, nipple discharge, pain, skin changes, swelling Cardiovascular: Reports irregular heart beat, Reports leg edema, Reports rapid heart beat, Reports shortness of breath Respiratory: Reports dyspnea Gastrointestinal: Reports as per HPI (Enterocutaneous fistula over the anterior abdominal wall) Genitourinary: Reports as per HPI (Askew catheter in place) Menstruation: Reports as per HPI Musculoskeletal: Reports as per HPI, Reports gait dysfunction (The patient is nonambulatory), Reports limitation of motion, Reports muscle weakness Musculoskeletal: bilateral: ankle swelling, absent: ankle pain, ankle stiffness Integumentary: Reports as per HPI (2 coccygeal ulcer and the patient has superficial wounds lower extremities bilaterally along with chronic edema in addition to candidal infection in her axillary areas and), Reports darkening of skin, Reports dryness, Reports foot/leg ulcers, Reports wounds, Denies pruritus, Denies rash Neurological: Reports balance difficulties, Reports confusion, Reports gait dysfunction, Reports lack of coordination, Reports spasticity, Reports weakness Psychiatric: Reports confusion, Denies anxiety, Denies depression Endocrine: Reports as per HPI, Reports fatigue Hematologic/Lymphatic: Reports as per HPI Allergic/Immunologic: Reports as per HPI Past Medical History Past Medical History: Atrial Fibrillation, Coronary Artery Disease (CAD), Chest Pain / Angina, Heart Failure, COPD, Diabetes Mellitus, Deep Vein Thrombosis (DVT), Hyperlipidemia, Hypertension, Osteoarthritis (OA), Respiratory Disorder, Skin Disorder, Sleep Apnea/CPAP/BIPAP, Thyroid Disorder, Vascular Disorder Additional Past Medical History / Comment(s): history of abdominal pain, live abscess that was drained and transferred to [facility] where a IR drain was placed on 03/08/18. 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 7 atrial fibrillation, history of DVT, history of stage II coccygeal wound, history of chronic ulceration lower extremities bilaterally, history of chronic lower extremity edema History of Any Multi-Drug Resistant Organisms: MRSA Date of last positivie culture/infection: 2000 MDRO Source:: unkn Past Surgical History: Cholecystectomy, Hernia Repair, Tonsillectomy Additional Past Surgical History / Comment(s): 03/08/18 IR drainage tube placed at [facility] for liver abscess, PICC line insertion 02/2018 at [facility] in L upper arm, 03/06/18 liver abscess drained, 12/2016 exploratory laparatomy with R hemicolectomy and ileostomy, subsequent wound healing issue with wound vac place then 2ndary closure, thyroidectomy.. Past Anesthesia/Blood Transfusion Reactions: No Reported Reaction Past Psychological History: Anxiety, Depression Additional Psychological History / Comment(s): Pt resides at [facility] on [facility]. She is wheelchair bound. Smoking Status: Never smoker Past Alcohol Use History: None Reported Additional Past Alcohol Use History / Comment(s): Patient currently resides at [facility] and has been there for urinary half. She is wheelchair bound. Past Drug Use History: None Reported - Past Family History Sister(s) Family Medical History: Memory Impairment Mother Family Medical History: Coronary Artery Disease (CAD) Additional Family Medical History / Comment(s): History of coronary artery disease Father Family Medical History: Coronary Artery Disease (CAD) Medications and Allergies Home Medications Medication Instructions Recorded Confirmed Type Atorvastatin [Lipitor] 10 mg PO HS 09/16/17 01/20/19 History Levothyroxine Sodium [Synthroid] 75 mcg PO DAILY 09/16/17 01/20/19 History Midodrine HCl [ProAmatine] 10 mg PO AC-TID 09/16/17 01/20/19 History Apixaban [Eliquis] 5 mg PO BID 03/15/18 01/20/19 History Lidocaine 2% Gel [Xylocaine Jelly 1 applic TOPICAL DAILY PRN 03/15/18 01/20/19 History 2%] Metoprolol Tartrate [Lopressor] 100 mg PO BID 03/28/18 01/20/19 History Demeclocycline HCl 300 mg PO Q12H 12/14/18 01/20/19 History Dicyclomine [Bentyl] 10 mg PO TID 12/14/18 01/20/19 History INSULIN ASPART (NovoLOG) [NovoLOG See Protocol SQ ACHS 12/14/18 01/20/19 History (formulary)] Ondansetron HCl [Zofran] 8 mg PO Q8H PRN 12/14/18 01/20/19 History Ranitidine HCl 150 mg PO BID 12/14/18 01/20/19 History Sodium Bicarbonate Tab 1,300 mg PO TID 12/14/18 01/20/19 History Spironolactone [Aldactone] 25 mg PO BID 12/14/18 01/20/19 History Triamcinolone 0.1% Cream [Kenalog 1 applic TOPICAL HS 12/14/18 01/20/19 History 0.1% Cream] busPIRone HCL 15 mg PO BID 12/14/18 01/20/19 History Acetaminophen-Codeine 300-30mg 1 tab PO Q6H PRN 01/20/19 01/20/19 History [Tylenol w/codeine #3] Clotrimazole/Betamethasone Dip 1 applic TOPICAL BID 01/20/19 01/20/19 History [Lotrisone Cream] DULoxetine HCL [Cymbalta] 30 mg PO BID 01/20/19 01/20/19 History Escitalopram Oxalate [Lexapro] 30 mg PO DAILY 01/20/19 01/20/19 History Furosemide [Lasix] 40 mg PO BID 01/20/19 01/20/19 History Gabapentin 600 mg PO BID 01/20/19 01/20/19 History Insulin Glargine,Hum.rec.anlog 25 unit SQ AC-SUPPER 01/20/19 01/20/19 History [Basaglar Kwikpen U-100] Lidocaine Cream 5% 1 applic TOPICAL TID 01/20/19 01/20/19 History Metolazone [Zaroxolyn] 2.5 mg PO MO 01/20/19 01/20/19 History Potassium Chloride [Klor-Con 10] 10 meq PO BID 01/20/19 01/20/19 History Allergies Allergy/AdvReac Type Severity Reaction Status Date / Time No Known Allergies Allergy Verified 01/20/19 19:15 Physical Exam Vitals: Vital Signs Temp Pulse Pulse Resp BP BP Pulse Ox 01/21/19 09:00 101 H 16 93/71 01/21/19 08:00 16 109/68 87 L 01/21/19 07:30 85 15 111/96 98 01/21/19 07:00 88 14 153/136 98 01/21/19 06:30 108 H 9 L 101/74 01/21/19 06:00 109 H 16 96/72 01/21/19 05:30 13 146/116 01/21/19 05:00 100 18 95/71 82 L 01/21/19 04:30 107 H 12 92/62 79 L 01/21/19 04:00 98.2 F 100 16 99/72 98 01/21/19 03:30 100 13 88/32 98 01/21/19 03:00 19 115/71 01/21/19 02:30 16 115/71 97 01/21/19 02:24 101 H 14 100 01/20/19 23:25 97.4 F L 110 H 20 79/59 94 L 01/20/19 21:35 97.3 F L 98 18 106/63 99 01/20/19 21:30 92 78/54 75 L 01/20/19 21:00 98 109/81 91 L 01/20/19 20:30 109 H 68/31 98 01/20/19 20:28 91 18 109/81 95 01/20/19 20:27 99 01/20/19 19:57 105 H 01/20/19 19:15 97.5 F L 97 18 123/104 96 Intake and Output 01/20/19 01/21/19 01/21/19 22:59 06:59 14:59 Intake Total 200 5900 Output Total 780 1850 50 Balance -580 4050 -50 Intake: IV 5500 Sodium Chloride 0.9% 1, 5000 000 ml @ 999 mls/hr IV . Q1H1M ONE Rx#:[id number] Sodium Chloride 0.9% 500 500 ml 500 ml @ 999 mls/hr IV .Q31M ONE Rx#:[id number] Oral 200 400 Output: Urine 380 650 50 Uretheral (Askew) 380 Stool 400 1200 Other: Voiding Method Indwelling Catheter Weight 165.561 kg General Appearance: Alert, cooperative, no distress, morbidly obese and no altered mentation for now and she is alert and awake 3 Head exam was generally normal. There was no scleral icterus or corneal arcus. Mucous membranes were moist. Neck was supple and without jugular venous distension, thyromegaly, or carotid bruits. Carotids were easily palpable bilaterally. There was no adenopathy. no carotid bruits. Lungs: Decreased breath some bilaterally with fine rhonchi no crackles mild expiratory wheezes. Chest Wall: Decrease expansion with deep inspiration no tenderness and no deformity was found on exam, no costochondral pain or discomfort. Heart: Regular rate and rhythm, S1, S2 normal, no murmur, rub or gallop. Possible S3 positive JVD Back: Symmetric, mild curvature and scoliosis mild CVA tenderness specially in the right side with the lower part of her sacrum and buttocks area had almost stage II decub diffuse on 3 larger area. Abdomen: Soft positive bowel sound there is surgical site with an open area on the left side connected with her ostomy and all collected by collection bag similar to TIANA with wound VAC. No direct tenderness. No rebound tenderness. No guarding. No ascites. Extremities: Significant edema with slight discoloration from the knee down and slight redness and oozing area in the lower part of the leg bilaterally. There is also bilateral lower extremity wounds mainly in the right lower extremity and probably 5-6 mm in size and then the basis covered with purulent material. The patient has chronic lower extremity edema and she has chronic muscle contractures and weakness. Pulses: 2+ and symmetric. Skin: Skin color, texture, tugor normal, no rashes or lesions. Neurologic: Alert oriented x3 cranial nerves II through XII intact, no motor deficit, no abnormal balance or gait. The patient is muscle weakness, nonambulatory at this point in time. Results - Laboratory Findings CBC and BMP: 01/21/19 05:39 01/21/19 05:39 PT/INR, D-dimer PT 11.8 sec (9.0-12.0) 01/20/19 21:10 INR 1.1 (<1.2) 01/20/19 21:10 Abnormal lab findings: Abnormal Labs 01/20/19 01/20/19 01/20/19 19:47 19:47 19:47 WBC 28.3 H MCHC 30.8 L RDW 16.2 H Neutrophils # 24.7 H Neutrophils # (Manual) Monocytes # 1.9 H Monocytes # (Manual) Myelocytes # (Manual) Nucleated RBCs Sodium Potassium Chloride BUN Creatinine Glucose POC Glucose (mg/dL) Plasma Lactic Acid Ronnie 2.8 H* Calcium Phosphorus Magnesium Alkaline Phosphatase Total Protein Albumin Urine Appearance Cloudy H Urine Blood Trace H Ur Leukocyte Esterase Large H Urine RBC 7 H Urine WBC >182 H Urine WBC Clumps Many H Urine Bacteria Rare H Urine Mucus Rare H 01/20/19 01/20/19 01/21/19 19:53 22:37 00:06 WBC MCHC RDW Neutrophils # Neutrophils # (Manual) Monocytes # Monocytes # (Manual) Myelocytes # (Manual) Nucleated RBCs Sodium 123 L Potassium 6.0 H Chloride 83 L BUN 100 H Creatinine 1.96 H Glucose 147 H POC Glucose (mg/dL) 128 H Plasma Lactic Acid Ronnie 3.4 H* Calcium Phosphorus 5.3 H Magnesium 1.5 L Alkaline Phosphatase 218 H Total Protein 4.6 L Albumin 2.2 L Urine Appearance Urine Blood Ur Leukocyte Esterase Urine RBC Urine WBC Urine WBC Clumps Urine Bacteria Urine Mucus 01/21/19 01/21/19 01/21/19 01:07 02:24 05:39 WBC 26.7 H MCHC 30.7 L RDW 16.2 H Neutrophils # Neutrophils # (Manual) 23.76 H Monocytes # Monocytes # (Manual) 1.07 H Myelocytes # (Manual) 0.27 H Nucleated RBCs 1 H Sodium Potassium Chloride BUN Creatinine Glucose POC Glucose (mg/dL) 163 H 147 H Plasma Lactic Acid Ronnie Calcium Phosphorus Magnesium Alkaline Phosphatase Total Protein Albumin Urine Appearance Urine Blood Ur Leukocyte Esterase Urine RBC Urine WBC Urine WBC Clumps Urine Bacteria Urine Mucus 01/21/19 01/21/19 05:39 06:58 WBC MCHC RDW Neutrophils # Neutrophils # (Manual) Monocytes # Monocytes # (Manual) Myelocytes # (Manual) Nucleated RBCs Sodium 127 L Potassium Chloride 91 L BUN 88 H Creatinine 1.75 H Glucose 147 H POC Glucose (mg/dL) 177 H Plasma Lactic Acid Ronnie Calcium 7.4 L Phosphorus Magnesium Alkaline Phosphatase 211 H Total Protein 4.2 L Albumin 1.9 L Urine Appearance Urine Blood Ur Leukocyte Esterase Urine RBC Urine WBC Urine WBC Clumps Urine Bacteria Urine Mucus Assessment and Plan Plan: Assessment 1 acute altered mental status, hypotension, leukocytosis in addition to an acute kidney injury. This patient's presentation is typical of an underlying sepsis. The source of infection could be an underlying urine checked infection. Other source cannot be completely excluded knowing that the patient has chronic ulceration wounds lower extremity and obviously a skin order one source of infection cannot be completely excluded. The enterocutaneous fistula is currently active and the patient has no active GI complaints. Most recent CAT scan of the abdomen that was done and December 2018 showed no acute abnormalities. The patient consisted total of 6 L of IV fluids. She is currently on no pressors. Leukocytosis improving. Mild sinus tachycardia. Urine output is adequate for now. Pending blood and urine cultures. She was given IV Rocephin, and Levaquin and vancomycin was added by the primary care. She has peripheral line in the right upper extremity 2 acute hypotension likely secondary to underlying sepsis, see discussion above 3 altered mentation recovered 4 leukocytosis 5 acute kidney injury. 6 history of recurrent urine checked infection with gram-negative bacteria 7 acute leukocytosis 8 chronic hyponatremia probably related to underlying SIADH currently on demeclocycline 9 large enterocutaneous fistula, functional 10 previous history of bowel surgery for his syncope related ventral hernia with ischemic bowel requiring major surgery that was Com[place] by the abdominal sepsis, enterocutaneous fistula, liver abscesses all of which have been drained. 11 history of atrial fibrillation and mild rapid ventricular response secondary to underlying sepsis and the patient anticoagulated on outpatient basis 12 diabetes mellitus type 2 13 obesity 14 stage II sacral decub ulceration 15 depression 16 chronic pain 17 chronic lower extremity edema with some superficial ulceration wound infections Plan Continue the Levaquin and Rocephin and put the patient IV Merrem 1 g every 8. Continue the vancomycin. Continue fluid resuscitation. May consider insertion of a triple-lumen catheter and the patient shows any signs of hypotension. Her current rhythm is atrial fibrillation and the patient is an alert and following commands and altered mentation is recovered. We'll obtain urine cultures cultures. Obtain cultures from the lower extremity wound. We'll reconsult outpatient medication. We'll continue to follow make further recommendations based on her progress. His electrolytes. Continue demeclocycline for now to get a chronic hyponatremia. The Askew catheter in place. Add nystatin powder to the groin and axillary area. Status is DO NOT RESUSCITATE.
[2019-01-21] MEDS ORDERED: VANCOMYCIN IV PER PHARMACY 1 EACH MISC MISCELLANE PRN (10:29)
[2019-01-21 10:32] VITALS: BMI 53.8
[2019-01-21] MEDS ORDERED: LEVOFLOXACIN 500MG-D5W PMX 500 MG in DEXTROSE/WATER 1 100ML.BAG IVPB ONE (10:45)
[2019-01-21] MEDS: Acetaminophen-Codeine 300-30mg TAB PO PRN ×2 (10:47→18:17)
[2019-01-21] MEDS: FUROSEMIDE 40 MG TAB PO SCH (10:48)
[2019-01-21] MEDS: ESCITALOPRAM 10 MG TAB PO SCH (10:48)
[2019-01-21] MEDS: CLOTRIMAZOLE TROCHE 10 MG TROCHE MUCOUS MEM SCH ×4 (10:53→23:37)
[2019-01-21] MEDS ORDERED: MEROPENEM 1 GM in SODIUM CHLORIDE 0.9% 100 ML IVPB SCH (11:00)
[2019-01-21] MEDS: SPIRONOLACTONE 25 MG TAB PO SCH ×2 (11:36→21:31)
[2019-01-21 11:59] LABS: Glucose,Whole Blood 160 mg/dL (75-99)
--- NOTE | 2019-01-21 14:30 | P.NPCON ---
History of Present Illness - Reason for Consult Consult date: 01/21/19 acute renal failure - Chief Complaint Syncope and acute kidney injury with hyponatremia - History of Present Illness This is a 63-year-old female who is seen in consultation because of hyponatremia and acute kidney injury. She is a morbidly obese female with history of strangulated ventral hernia with expiratory lap and ileostomy, right hemicolectomy with ischemic bowel in December 2016. She is had a wound VAC and secondary closure of last year. He more recently she has been at [facility] in an extended care facility. Currently she has a colostomy the and as well as a drainage for an abdominal wound which is chronic. Supposedly she there was witnessed syncope with eyes rolled up as per her niece was called by the retirement. She is hypotensive year, but she is awake and alert. An IV line is pending. Lactic acid is somewhat high suggestive of sepsis. Urine cultures are so far negative blood cultures have been drawn possibly but I can't see the results. Additionally supposedly she has had a liver abscess sometime in the last 2 years. Patient denies any chest pain shortness of breath cough fever chills. He remains somewhat disoriented to place but not to person. She is also disoriented to time. Past Medical History Past Medical History: Atrial Fibrillation, Coronary Artery Disease (CAD), Chest Pain / Angina, Heart Failure, COPD, Diabetes Mellitus, Deep Vein Thrombosis (DVT), Hyperlipidemia, Hypertension, Osteoarthritis (OA), Respiratory Disorder, Skin Disorder, Sleep Apnea/CPAP/BIPAP, Thyroid Disorder, Vascular Disorder Additional Past Medical History / Comment(s): history of abdominal pain, live abscess that was drained and transferred to [facility] where a IR drain was placed on 03/08/18. 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 7 atrial fibrillation, history of DVT, history of stage II coccygeal wound, history of chronic ulceration lower extremities bilaterally, history of chronic lower extremity edema History of Any Multi-Drug Resistant Organisms: MRSA Date of last positivie culture/infection: 2000 MDRO Source:: unkn Past Surgical History: Cholecystectomy, Hernia Repair, Tonsillectomy Additional Past Surgical History / Comment(s): 03/08/18 IR drainage tube placed at [facility] for liver abscess, PICC line insertion 02/2018 at [facility] in L upper arm, 03/06/18 liver abscess drained, 12/2016 exploratory laparatomy with R hemicolectomy and i leostomy, subsequent wound healing issue with wound vac place then 2ndary closure, thyroidectomy.. Past Anesthesia/Blood Transfusion Reactions: No Reported Reaction Past Psychological History: Anxiety, Depression Additional Psychological History / Comment(s): Pt resides at [facility] on the [place]. She is wheelchair bound. Smoking Status: Never smoker Past Alcohol Use History: None Reported Additional Past Alcohol Use History / Comment(s): Patient currently resides at [facility] and has been there for urinary half. She is wheelchair bound. Past Drug Use History: None Reported - Past Family History Sister(s) Family Medical History: Memory Impairment Mother Family Medical History: Coronary Artery Disease (CAD) Additional Family Medical History / Comment(s): History of coronary artery disease Father Family Medical History: Coronary Artery Disease (CAD) Medications and Allergies Home Medications Medication Instructions Recorded Confirmed Type Atorvastatin [Lipitor] 10 mg PO HS 09/16/17 01/20/19 History Levothyroxine Sodium [Synthroid] 75 mcg PO DAILY 09/16/17 01/20/19 History Midodrine HCl [ProAmatine] 10 mg PO AC-TID 09/16/17 01/20/19 History Apixaban [Eliquis] 5 mg PO BID 03/15/18 01/20/19 History Lidocaine 2% Gel [Xylocaine Jelly 1 applic TOPICAL DAILY PRN 03/15/18 01/20/19 History 2%] Metoprolol Tartrate [Lopressor] 100 mg PO BID 03/28/18 01/20/19 History Demeclocycline HCl 300 mg PO Q12H 12/14/18 01/20/19 History Dicyclomine [Bentyl] 10 mg PO TID 12/14/18 01/20/19 History INSULIN ASPART (NovoLOG) [NovoLOG See Protocol SQ ACHS 12/14/18 01/20/19 History (formulary)] Ondansetron HCl [Zofran] 8 mg PO Q8H PRN 12/14/18 01/20/19 History Ranitidine HCl 150 mg PO BID 12/14/18 01/20/19 History Sodium Bicarbonate Tab 1,300 mg PO TID 12/14/18 01/20/19 History Spironolactone [Aldactone] 25 mg PO BID 12/14/18 01/20/19 History Triamcinolone 0.1% Cream [Kenalog 1 applic TOPICAL HS 12/14/18 01/20/19 History 0.1% Cream] busPIRone HCL 15 mg PO BID 12/14/18 01/20/19 History Acetaminophen-Codeine 300-30mg 1 tab PO Q6H PRN 01/20/19 01/20/19 History [Tylenol w/codeine #3] Clotrimazole/Betamethasone Dip 1 applic TOPICAL BID 01/20/19 01/20/19 History [Lotrisone Cream] DULoxetine HCL [Cymbalta] 30 mg PO BID 01/20/19 01/20/19 History Escitalopram Oxalate [Lexapro] 30 mg PO DAILY 01/20/19 01/20/19 History Furosemide [Lasix] 40 mg PO BID 01/20/19 01/20/19 History Gabapentin 600 mg PO BID 01/20/19 01/20/19 History Insulin Glargine,Hum.rec.anlog 25 unit SQ AC-SUPPER 01/20/19 01/20/19 History [Basaglar Brandanikpen U-100] Lidocaine Cream 5% 1 applic TOPICAL TID 01/20/19 01/20/19 History Metolazone [Zaroxolyn] 2.5 mg PO MO 01/20/19 01/20/19 History Potassium Chloride [Klor-Con 10] 10 meq PO BID 01/20/19 01/20/19 History Allergies Allergy/AdvReac Type Severity Reaction Status Date / Time No Known Allergies Allergy Verified 01/20/19 19:15 Physical Exam Vitals: Vital Signs Temp Pulse Pulse Resp BP BP Pulse Ox 01/21/19 13:00 110 H 12 79/68 92 L 01/21/19 12:00 96.2 F L 121 H 11 L 98/71 98 01/21/19 11:00 101 H 11 L 58/45 01/21/19 10:00 102 H 14 93/76 98 01/21/19 09:00 101 H 16 93/71 01/21/19 08:00 16 109/68 87 L 01/21/19 07:30 85 15 111/96 98 01/21/19 07:00 88 14 153/136 98 01/21/19 06:30 108 H 9 L 101/74 01/21/19 06:00 109 H 16 96/72 01/21/19 05:30 13 146/116 01/21/19 05:00 100 18 95/71 82 L 01/21/19 04:30 107 H 12 92/62 79 L 01/21/19 04:00 98.2 F 100 16 99/72 98 01/21/19 03:30 100 13 88/32 98 01/21/19 03:00 19 115/71 01/21/19 02:30 16 115/71 97 01/21/19 02:24 101 H 14 100 01/20/19 23:25 97.4 F L 110 H 20 79/59 94 L 01/20/19 21:35 97.3 F L 98 18 106/63 99 01/20/19 21:30 92 78/54 75 L 01/20/19 21:00 98 109/81 91 L 01/20/19 20:30 109 H 68/31 98 01/20/19 20:28 91 18 109/81 95 01/20/19 20:27 99 01/20/19 19:57 105 H 01/20/19 19:15 97.5 F L 97 18 123/104 96 Intake and Output 01/20/19 01/21/19 01/21/19 22:59 06:59 14:59 Intake Total 200 5900 400 Output Total 780 1850 346 Balance -580 4050 54 Intake: IV 5500 400 .9 100 mL/hour 400 Sodium Chloride 0.9% 1, 5000 000 ml @ 999 mls/hr IV . Q1H1M ONE Rx#:[id number] Sodium Chloride 0.9% 500 500 ml 500 ml @ 999 mls/hr IV .Q31M ONE Rx#:[id number] Oral 200 400 Output: Urine 380 650 346 Uretheral (Askew) 380 Stool 400 1200 Other: Voiding Method Indwelling Catheter Indwelling Catheter Weight 165.561 kg 165.561 kg On examination she is awake alert. But oriented only to person. Morbidly obese and therefore exam was somewhat difficult HEENT exam neck is supple no facial asymmetry JVP could not be seen Lungs are clear to auscultation but exam is less than optimal. Heart sounds are unremarkable. Atrial fibrillation. Abdomen is obese she has a large ostomy wound as well as drainage. Nontender. Bowel sounds are present Extremity exam shows mild edema Neurologically awake alert but disoriented as mentioned except for oriented to person. She is able to move all her extremities but very weak Results - Lab Results Most recent lab results Calcium 7.4 mg/dL (8.4-10.2) L 01/21/19 05:39 Phosphorus 5.3 mg/dL (2.5-4.5) H 01/20/19 22:37 Magnesium 1.5 mg/dL (1.6-2.3) L 01/20/19 22:37 01/21/19 05:39 01/21/19 05:39 Assessment and Plan Assessment: Present 1. Acute kidney injury secondary to 1 depletion and low blood pressure possibly septic. 2. Chronic kidney disease, recent creatinines are 1.2-1.8 in 2018. Urinalysis shows no protein likely is nephrosclerosis. 3. Severe hyponatremia sodium was 123 and improved to 127 this morning etiology is acute kidney injury and volume depletion. 4. Lactic acidosis possibly septic. 5. History of atrial fibrillation, coronary artery disease. 5. History of diabetes mellitus. 6. Morbid obesity. Recommendation. 1. Pending IV line. Agree with bolus of 500 and repeat as necessary to improve her blood pressure and mean arterial pressure. 2. Maintain IV normal saline at about 100 mL an hour. 3. Expect renal function and sodium to improve
[2019-01-21 15:41] LABS: Hyaline Casts,Urine 12 /lpf (0-2)
[2019-01-21] MEDS: VANCOMYCIN 2,500 MG in SODIUM CHLORIDE 0.9% 500 ML 500 ML IVPB SCH (16:40)
[2019-01-21 17:01] LABS: Glucose,Whole Blood 120 mg/dL (75-99)
--- NOTE | 2019-01-21 20:37 | CONS ---
CONSULTATION DATE OF SERVICE: 01/21/2019. REASON FOR CONSULTATION: UTI infection with sepsis. HISTORY OF PRESENT ILLNESS: The patient is a 63-year-old female, who did have surgery for a strangulated ventral hernia. Underwent exploratory laparotomy and right hemicolectomy in December of 2016. The patient since then did have ileostomy and apparently fistula next to it for which the patient did have a specific ostomy bag for collection of her stool. The patient also has a history of nonhealing wound to the lower extremity. Did have urinary retention requiring chronic indwelling Askew catheter. The patient has been brought to the [facility] yesterday for evaluation of mental status changes. The patient admits to hallucination earlier significantly with not understanding where she was. The patient denied having any headache. No nausea, no vomiting. No abdominal pain or any diarrhea. The patient on presentation to the hospital has been afebrile. She was noticed to be tachycardic and hypertensive at one point. Her white count was elevated at 28.3,repeat 26.7. Did have evidence of mild renal insufficiency. The patient did have a positive UA with large status more than 120 WBC. The patient has been started on meropenem with concern for catheter-associated urinary tract infection. Infectious Disease was consulted for further recommendation of antibiotic therapy. Patient did have a chest x-ray which shows no acute pulmonary process. REVIEW OF SYSTEMS: Positive points have been mentioned in HPI. Rest of systems are negative. PAST MEDICAL HISTORY: Atrial fibrillation, coronary artery disease, heart failure, COPD, diabetes mellitus, DVT, hyperlipidemia, hypertension, osteoarthritis, sleep apnea, hypothyroidism, MRSA infection. PAST SURGICAL HISTORY: Cholecystectomy, hernia repair, tonsillectomy, IR drainage of the liver abscess. SOCIAL HISTORY: Currently a correction resident. No history of smoking, drinking or drug use. FAMILY HISTORY: Mother with history of coronary artery disease. Father with history of coronary artery disease. ALLERGIES: No known drug allergies. MEDICATIONS: The patient is currently on Tylenol, Eliquis, Lipitor, Buspar, Mycelex troches, , daptomycin, Bentyl, Cymbalta, Lexapro, Pepcid, Lasix, Neurontin, NovoLog, meropenem 1 g every12, morphine sulfate, Zofran and vancomycin. PHYSICAL EXAMINATION: Blood pressure is 98/71 with a pulse of 121, temperature 96.2. She is 98% on 2 L nasal cannula. GENERAL DESCRIPTION: A middle-aged female lying in bed in no distress. No tachypnea or accessory muscle of respiration use. HEENT: Shows no pallor or scleral icterus. Oral mucosa is dry. No pharyngeal erythema or thrush. NECK: Trachea central. No thyromegaly. LUNGS: Unlabored breathing. Clear to auscultation anteriorly. No wheeze or crackle. HEART: S1, S2. Regular rate and rhythm. ABDOMEN: Soft, no tenderness. No guarding or rigidity. EXTREMITIES: Some venous stasis ulcer. No evidence of any cellulitis, NEUROLOGIC: The patient is awake, alert, oriented x3. Mood and affect normal. LABS: Hemoglobin is 12.1, hematocrit 26.7, BUN of 88, creatinine 1.75. Electrolytes slightly elevated at 127. Liver enzymes are normal. Urine has been positive. DIAGNOSTIC IMPRESSION AND PLAN: 1. Patient admitted to the hospital with mental status changes. The patient did have possible sepsis with concern for catheter-associated urinary tract infection. This patient has predominantly grown a gram-negative in her urine. The last one has been Citrobacter and enterobacter aeruginosa. No ESBL pathogen. Clinically no focus of a gram-positive infection except the Staph epi in blood from 12/14/2018. 2. The patient with lower extremity with no evidence of cellulitis. 3. Patient to continue with current broad spectrum antibiotic in the form of meropenem and vancomycin, however, monitor kidney function closely. 4. Aquacel Silver dressing to the lower extremity with minimal compression dressing. 5. The patient is known to Dr. Sky, he will follow the patient as of tomorrow. MMODL / IJN: [id number] /
[2019-01-21 21:13] LABS: Glucose,Whole Blood 114 mg/dL (75-99)
[2019-01-21] MEDS: METOPROLOL TARTRATE 50 MG TAB PO SCH (22:28)
[2019-01-21] MEDS: MEROPENEM 1 GM in SODIUM CHLORIDE 0.9% 100 ML IVPB SCH (23:36)
[2019-01-22] MEDS: Acetaminophen-Codeine 300-30mg TAB PO PRN (01:42)
[2019-01-22] MEDS: NOREPINEPHRINE 4 MG in SODIUM CHLORIDE 0.9% 250 ML IV SCH ×2 (03:42→17:31)
[2019-01-22 06:05] LABS: Anisocytosis Slight; Basophils # (A) 0.1 k/uL (0-0.2); Basophils % (A) 0 %; Eosinophils # (A) 0.1 k/uL (0-0.7); Eosinophils % (A) 0 %; HCT 42.5 % (34.0-46.0); HGB 12.8 gm/dL (11.4-16.0); Hypochromasia Slight; Lymphocytes # (A) 0.7 k/uL (1.0-4.8); Lymphocytes % (A) 2 %; MCH 25.5 pg (25.0-35.0); MCHC 30.1 g/dL (31.0-37.0); MCV 84.9 fL (80.0-100.0); Mean Platelet Volume 8.6; Monocytes # (A) 1.8 k/uL (0-1.0); Monocytes % (A) 6 %; Neutrophils # (A) 29.5 k/uL (1.3-7.7); Neutrophils % (A) 91 %; Platelet Count 486 k/uL (150-450); RDW 16.1 % (11.5-15.5); WBC 32.4 k/uL (3.8-10.6)
[2019-01-22] MEDS: VANCOMYCIN 2,500 MG in SODIUM CHLORIDE 0.9% 500 ML 500 ML IVPB SCH (06:21)
[2019-01-22] MEDS: LEVOTHYROXINE 75 MCG TAB PO SCH (06:21)
[2019-01-22] MEDS: CLOTRIMAZOLE TROCHE 10 MG TROCHE MUCOUS MEM SCH ×3 (06:21→17:32)
[2019-01-22 06:23] LABS: Calcium 8.1 mg/dL (8.4-10.2); Magnesium 1.5 mg/dL (1.6-2.3); Phosphorus 5.4 mg/dL (2.5-4.5); Potassium 5.1 mmol/L (3.5-5.1)
[2019-01-22 06:57] LABS: Glucose,Whole Blood 115 mg/dL (75-99)
[2019-01-22] MEDS ORDERED: Magnesium Replacement Protocol 1 EACH MISC MISCELLANE PRN (07:15)
[2019-01-22] MEDS: INSULIN ASPART (NovoLOG) 100 UNIT/ML VIAL SQ SCH ×3 (07:17→17:46)
[2019-01-22] MEDS: MIDODRINE 5 MG TAB PO SCH ×3 (07:48→17:32)
--- NOTE | 2019-01-22 08:32 | XR ---
EXAMINATION TYPE: XR chest 1V portable DATE OF EXAM: 01/22/2019 COMPARISON: 01/21/2019 HISTORY: Shortness of breath TECHNIQUE: Single frontal view of the chest is obtained. FINDINGS: Subsegmental consolidation left perihilar and lower lobe. Right lung clear. No overt failu re or pneumothorax. Heart is mildly enlarged. IMPRESSION: Cardiomegaly with left basilar atelectasis or infiltrate stable.
[2019-01-22] MEDS ORDERED: FAMOTIDINE 20 MG TAB PO SCH (09:00)
[2019-01-22] MEDS ORDERED: METOLAZONE 2.5 MG TAB PO SCH (09:00)
[2019-01-22] MEDS: DULoxetine HCL 30 MG CAPSULE.DR PO SCH (09:07)
[2019-01-22] MEDS: GABAPENTIN 300 MG CAP PO SCH (09:08)
[2019-01-22] MEDS: ESCITALOPRAM 10 MG TAB PO SCH (09:08)
[2019-01-22] MEDS: METOPROLOL TARTRATE 50 MG TAB PO SCH (09:09)
[2019-01-22] MEDS: MAGNESIUM SULFATE-D5W PMX 1 GM in DEXTROSE/WATER 1 100ML.BAG IVPB SCH ×2 (09:09→12:23)
[2019-01-22] MEDS: busPIRone HCl 5 MG TAB PO SCH (09:10)
[2019-01-22] MEDS: APIXABAN 5 MG TAB PO SCH (09:11)
[2019-01-22] MEDS: SODIUM BICARBONATE TAB 650 MG TAB PO SCH (09:12)
[2019-01-22] MEDS: DICYCLOMINE 10 MG CAP PO SCH ×2 (09:12→17:32)
[2019-01-22] MEDS: SPIRONOLACTONE 25 MG TAB PO SCH ×2 (09:13→09:14)
[2019-01-22] MEDS: FUROSEMIDE 40 MG TAB PO SCH (09:15)
--- NOTE | 2019-01-22 09:52 | P.PN ---
Subjective Patient is seen in follow-up for acute kidney injury. Her basic creatinine is 1 and peaked at 1.96 this admission. It is down to 1.68 today. She is currently maintained on normal saline at 100 mL an hour. Sodium level is 126 today. Patient is awake and alert however remains somewhat confused. She is nonoliguric. Vital signs are stable. General: Awake and alert but confused. HEENT: Head exam is unremarkable. Neck is without jugular venous distension. LUNGS: Lungs are clear to auscultation and percussion. Breath sounds decreased. HEART: Rate and Rhythm are regular. First and second heart sounds normal. No murmurs, rubs or gallops. ABDOMEN: Obese. Nontender. Bowel sounds present. EXTREMITITES: Trace edema. Objective - Vital Signs Vital signs: Vital Signs Temp 97.4 F L 01/22/19 04:00 Pulse 125 H 01/22/19 07:00 Resp 16 01/22/19 07:00 BP 95/85 01/22/19 07:00 Pulse Ox 97 01/22/19 07:00 Intake & Output 01/21/19 01/22/19 01/22/19 18:59 06:59 18:59 Intake Total 900 1156.035 687.891 Output Total 666 599 40 Balance 234 557.035 647.891 Weight 165.561 kg 174.5 kg Intake: IV 400 1100 600 .9 100 mL/hour 400 1100 100 Vancomycin 2,500 mg In 500 Sodium Chloride 0.9% 500 ml 500 ml @ 167 mls/hr IVPB DAILY@0600 YAS Rx#: [id number] Intake, IV Titration 500 56.035 87.891 Amount Norepinephrine 4 mg In 56.035 87.891 Sodium Chloride 0.9% 250 ml @ 0.05 MCG/KG/MIN 31. 539 mls/hr IV .Q8H4M YAS Rx#:[id number] Vancomycin 2,500 mg In 500 Sodium Chloride 0.9% 500 ml 500 ml @ 167 mls/hr IVPB DAILY@0600 YAS Rx#: [id number] Output: Urine 666 599 40 Other: Voiding Method Indwelling Catheter Indwelling Catheter - Labs CBC & Chem 7: 01/22/19 05:36 01/22/19 05:36 Labs: Abnormal Lab Results - Last 24 Hours (Table) 01/20/19 01/21/19 01/21/19 Range/Units 19:47 11:56 16:58 WBC (3.8-10.6) k/uL MCHC (31.0-37.0) g/dL RDW (11.5-15.5) % Plt Count (150-450) k/uL Neutrophils # (1.3-7.7) k/uL Lymphocytes # (1.0-4.8) k/uL Monocytes # (0-1.0) k/uL Sodium (137-145) mmol/L Chloride (98-107) mmol/L BUN (7-17) mg/dL Creatinine (0.52-1.04) mg/dL POC Glucose (mg/dL) 160 H 120 H (75-99) mg/dL Calcium (8.4-10.2) mg/dL Phosphorus (2.5-4.5) mg/dL Magnesium (1.6-2.3) mg/dL Hyaline Casts 12 H (0-2) /lpf 01/21/19 01/22/19 01/22/19 Range/Units 20:47 05:36 05:36 WBC 32.4 H (3.8-10.6) k/uL MCHC 30.1 L (31.0-37.0) g/dL RDW 16.1 H (11.5-15.5) % Plt Count 486 H (150-450) k/uL Neutrophils # 29.5 H (1.3-7.7) k/uL Lymphocytes # 0.7 L (1.0-4.8) k/uL Monocytes # 1.8 H (0-1.0) k/uL Sodium 126 L (137-145) mmol/L Chloride 89 L (98-107) mmol/L BUN 88 H (7-17) mg/dL Creatinine 1.68 H (0.52-1.04) mg/dL POC Glucose (mg/dL) 114 H (75-99) mg/dL Calcium 8.1 L (8.4-10.2) mg/dL Phosphorus 5.4 H (2.5-4.5) mg/dL Magnesium 1.5 L (1.6-2.3) mg/dL Hyaline Casts (0-2) /lpf 01/22/19 Range/Units 06:54 WBC (3.8-10.6) k/uL MCHC (31.0-37.0) g/dL RDW (11.5-15.5) % Plt Count (150-450) k/uL Neutrophils # (1.3-7.7) k/uL Lymphocytes # (1.0-4.8) k/uL Monocytes # (0-1.0) k/uL Sodium (137-145) mmol/L Chloride (98-107) mmol/L BUN (7-17) mg/dL Creatinine (0.52-1.04) mg/dL POC Glucose (mg/dL) 115 H (75-99) mg/dL Calcium (8.4-10.2) mg/dL Phosphorus (2.5-4.5) mg/dL Magnesium (1.6-2.3) mg/dL Hyaline Casts (0-2) /lpf Microbiology - Last 24 Hours (Table) 01/21/19 10:58 Gram Stain - Preliminary Leg - Right Wound Culture - Preliminary 01/21/19 10:58 Gram Stain - Preliminary Leg - Left Wound Culture - Preliminary 01/20/19 19:47 Urine Culture - Final Urine,Catheterized 01/20/19 21:10 Blood Culture Gram Stain - Preliminary Blood 01/20/19 21:10 Blood Culture - Final Blood Assessment and Plan Plan: Assessment: 1. Acute kidney injury secondary to ATN secondary to intravascular volume depletion as well as hypotension. Renal function relatively stable. Creatinine 1.68 today. 2. Hypovolemic hyponatremia initially improved with IV hydration. However today the sodium is 126. She was also on diuretics. 3. Hypomagnesemia from proton oral intake. 4. Hyperphosphatemia secondary to acute kidney injury. 5. Altered mental status possibly due to sepsis. Maintained on antibiotics. Infectious disease following. 6. Septic shock currently on vasopressors. Plan: Hold diuretics. Maintain normal saline at 100 mL an hour. Add 1200 mL fluid restriction. Continue to monitor renal function and urine output. Repeat BMP this evening. Follow-up cultures. Magnesium being replaced.
[2019-01-22] MEDS ORDERED: LEVOFLOXACIN 250MG-D5W PMX 250 MG in DEXTROSE/WATER 1 50ML.BAG IVPB SCH (10:00)
[2019-01-22 11:46] LABS: Glucose,Whole Blood 154 mg/dL (75-99)
[2019-01-22 12:16] LABS: Glucose,Whole Blood 144 mg/dL (75-99)
[2019-01-22] MEDS: MEROPENEM 1 GM in SODIUM CHLORIDE 0.9% 100 ML IVPB SCH (12:24)
[2019-01-22] MEDS: DEMECLOCYCLINE 150 MG TAB PO SCH (12:25)
--- NOTE | 2019-01-22 14:18 | P.GSCN ---
History of Present Illness Consult date: 01/22/19 Reason for Consult: management of internal fistula/ostomy Requesting physician: Hilario Parks History of present illness: CHIEF COMPLAINT: fistula HISTORY OF PRESENT ILLNESS: 63-year-old female who is admitted to the hospital originally due to altered mental status. Patient underwent exploratory laparotomy, ileostomy, right hemicolectomy in December [address] Yee at [facility]. She was found to have an ischemic bowel. The patient has had a complicated course since that time including wound vac therapy, secondary closure in December 2016, bacteremia requiring IV antibiotics, and hepatic abscess and CT-guided drainage in 2018. The patient is a poor historian, but apparently she has had an entercutaneous fistula for many months that she reports is getting larger in size. Ostomy site is functioning with stool and gas noted. Currently large wound drainage pouch is being utilized for her ostomy due to the size of opening. She denies abdominal pain. Denies nausea or vomiting. WBC 32.4. PAST MEDICAL HISTORY: See list. PAST SURGICAL HISTORY: See list. SOCIAL HISTORY: No illicit drug use. REVIEW OF SYSTEMS: CONSTITUTIONAL: Denies fever or chills. HEENT: Denies blurred vision, vision changes, or eye pain. Denies hemoptysis CARDIOVASCULAR: Denies chest pain or pressure. RESPIRATORY: No shortness of breath. GASTROINTESTINAL: Refer to HPI for pertinent findings HEMATOLOGIC: Denies bleeding disorders. GENITOURINARY: Denies any blood in urine. SKIN: Denies pruitis. PHYSICAL EXAM: VITAL SIGNS: Reviewed. GENERAL: Well-developed in no acute distress. HEENT: No sclera icterus. Extraocular movements grossly intact. Moist buccal mucosa. Head is atraumatic, normocephalic. ABDOMEN: Obese. Soft. Large ostomy/fistula to left lower quadrant with stool and gas noted. Nontender. NEUROLOGIC: Alert and oriented. Cranial nerves II through XII grossly intact. IMAGING: Most recent abdominal CT was completed in December 2018 revealing anterior abdominal wall ventral hernia appears to contain small bowel loops without evidence of obstruction. Sinus tract and possible enterocutaneous fistula. Intestinal hernia appears new compared to old CT. There is clearing of right pleural effusion compared to exam. ASSESSMENT: 1. History of exploratory laparotomy, ileostomy, and right hemicolectomy secondary to ischemic bowel, December 2016 2. Enterocutaneous fistula 3. Abdominal wall ventral hernia PLAN: Case discussed with Dr. Hsu. Dr. Hsu recommends transfer to [facility] for evaluation by her surgeon, Dr. Yee. Nurse practitioner note has been reviewed by physician. Signing provider agrees with the documented findings, assessment, and plan of care. Past Medical History Past Medical History: Atrial Fibrillation, Coronary Artery Disease (CAD), Chest Pain / Angina, Heart Failure, COPD, Diabetes Mellitus, Deep Vein Thrombosis (DV T), Hyperlipidemia, Hypertension, Osteoarthritis (OA), Respiratory Disorder, Skin Disorder, Sleep Apnea/CPAP/BIPAP, Thyroid Disorder, Vascular Disorder Additional Past Medical History / Comment(s): history of abdominal pain, live abscess that was drained and transferred to [facility] where a IR drain was placed on 03/08/18. Other HX: Strangulated ventral hernia with necrotic transverse bowel and necrotic omentum-surgery performed including ileostomy, enterocutaneous fistula at ileostomy site, IDDM type II, bilateral hands and feet neuropathy, obesity, paroxysmal Afib, chronic CHF, respiratory failure, UTIs, DVT L axillae, venous insufficiency, CKD stage II, hypothyroid, cellulitis bilateral legs, chronic pain, muscle weakness, neuromuscular disorder of bladder-wears dis posable briefs. 7 atrial fibrillation, history of DVT, history of stage II coccygeal wound, history of chronic ulceration lower extremities bilaterally, history of chronic lower extremity edema History of Any Multi-Drug Resistant Organisms: MRSA Year Discovered:: 2000 MDRO Source:: unkn Past Surgical History: Cholecystectomy, Hernia Repair, Tonsillectomy Additional Past Surgical History / Comment(s): 03/08/18 IR drainage tube placed at [facility] for liver abscess, PICC line insertion 02/2018 at [facility] in L upper arm, 03/06/18 liver abscess drained, 12/2016 exploratory laparatomy with R hemicolectomy and ileostomy, subsequent wound healing issue with wound vac place then 2ndary viet sure, thyroidectomy.. Past Anesthesia/Blood Transfusion Reactions: No Reported Reaction Past Psychological History: Anxiety, Depression Additional Psychological History / Comment(s): Pt resides at [facility] on the [place]. She is wheelchair bound. Smoking Status: Never smoker Past Alcohol Use History: None Reported Additional Past Alcohol Use History / Comment(s): Patient currently resides at [facility] and has been there for urinary half. She is wheelchair bound. Past Drug Use History: None Reported - Past Family History Sister(s) Family Medical History: Memory Impairment Mother Family Medical History: Coronary Artery Disease (CAD) Additional Family Medical History / Comment(s): History of coronary artery dise ase Father Family Medical History: Coronary Artery Disease (CAD) Medications and Allergies Home Medications Medication Instructions Recorded Confirmed Type Atorvastatin [Lipitor] 10 mg PO HS 09/16/17 01/20/19 History Levothyroxine Sodium [Synthroid] 75 mcg PO DAILY 09/16/17 01/20/19 History Midodrine HCl [ProAmatine] 10 mg PO AC-TID 09/16/17 01/20/19 History Apixaban [Eliquis] 5 mg PO BID 03/15/18 01/20/19 History Lidocaine 2% Gel [Xylocaine Jelly 1 applic TOPICAL DAILY PRN 03/15/18 01/20/19 History 2%] Metoprolol Tartrate [Lopressor] 100 mg PO BID 03/28/18 01/20/19 History Demeclocycline HCl 300 mg PO Q12H 12/14/18 01/20/19 History Dicyclomine [Bentyl] 10 mg PO TID 12/14/18 01/20/19 History INSULIN ASPART (NovoLOG) [NovoLOG See Protocol SQ ACHS 12/14/18 01/20/19 History (formulary)] Ondansetron HCl [Zofran] 8 mg PO Q8H PRN 12/14/18 01/20/19 History Ranitidine HCl 150 mg PO BID 12/14/18 01/20/19 History Sodium Bicarbonate Tab 1,300 mg PO TID 12/14/18 01/20/19 History Spironolactone [Aldactone] 25 mg PO BID 12/14/18 01/20/19 History Triamcinolone 0.1% Cream [Kenalog 1 applic TOPICAL HS 12/14/18 01/20/19 History 0.1% Cream] busPIRone HCL 15 mg PO BID 12/14/18 01/20/19 History Acetaminophen-Codeine 300-30mg 1 tab PO Q6H PRN 01/20/19 01/20/19 History [Tylenol w/codeine #3] Clotrimazole/Betamethasone Dip 1 applic TOPICAL BID 01/20/19 01/20/19 History [Lotrisone Cream] DULoxetine HCL [Cymbalta] 30 mg PO BID 01/20/19 01/20/19 History Escitalopram Oxalate [Lexapro] 30 mg PO DAILY 01/20/19 01/20/19 History Furosemide [Lasix] 40 mg PO BID 01/20/19 01/20/19 History Gabapentin 600 mg PO BID 01/20/19 01/20/19 History Insulin Glargine,Hum.rec.anlog 25 unit SQ AC-SUPPER 01/20/19 01/20/19 History [Basaglar Kwikpen U-100] Lidocaine Cream 5% 1 applic TOPICAL TID 01/20/19 01/20/19 History Metolazone [Zaroxolyn] 2.5 mg PO MO 01/20/19 01/20/19 History Potassium Chloride [Klor-Con 10] 10 meq PO BID 01/20/19 01/20/19 History Allergies Allergy/AdvReac Type Severity Reaction Status Date / Time No Known Allergies Allergy Verified 01/20/19 19:15 Surgical - Exam Vital Signs Temp Pulse Resp BP Pulse Ox 97.5 F L 97 18 123/104 96 01/20/19 19:15 01/20/19 19:15 01/20/19 19:15 01/20/19 19:15 01/20/19 19:15 Results - Labs 01/22/19 05:36 01/22/19 05:36 Abnormal Lab Results - Last 24 Hours (Table) 01/20/19 01/21/19 01/21/19 Range/Units 19:47 16:58 20:47 WBC (3.8-10.6) k/uL MCHC (31.0-37.0) g/dL RDW (11.5-15.5) % Plt Count (150-450) k/uL Neutrophils # (1.3-7.7) k/uL Lymphocytes # (1.0-4.8) k/uL Monocytes # (0-1.0) k/uL Sodium (137-145) mmol/L Chloride (98-107) mmol/L BUN (7-17) mg/dL Creatinine (0.52-1.04) mg/dL POC Glucose (mg/dL) 120 H 114 H (75-99) mg/dL Calcium (8.4-10.2) mg/dL Phosphorus (2.5-4.5) mg/dL Magnesium (1.6-2.3) mg/dL Hyaline Casts 12 H (0-2) /lpf 01/22/19 01/22/19 01/22/19 Range/Units 05:36 05:36 06:54 WBC 32.4 H (3.8-10.6) k/uL MCHC 30.1 L (31.0-37.0) g/dL RDW 16.1 H (11.5-15.5) % Plt Count 486 H (150-450) k/uL Neutrophils # 29.5 H (1.3-7.7) k/uL Lymphocytes # 0.7 L (1.0-4.8) k/uL Monocytes # 1.8 H (0-1.0) k/uL Sodium 126 L (137-145) mmol/L Chloride 89 L (98-107) mmol/L BUN 88 H (7-17) mg/dL Creatinine 1.68 H (0.52-1.04) mg/dL POC Glucose (mg/dL) 115 H (75-99) mg/dL Calcium 8.1 L (8.4-10.2) mg/dL Phosphorus 5.4 H (2.5-4.5) mg/dL Magnesium 1.5 L (1.6-2.3) mg/dL Hyaline Casts (0-2) /lpf 01/22/19 01/22/19 Range/Units 11:43 12:12 WBC (3.8-10.6) k/uL MCHC (31.0-37.0) g/dL RDW (11.5-15.5) % Plt Count (150-450) k/uL Neutrophils # (1.3-7.7) k/uL Lymphocytes # (1.0-4.8) k/uL Monocytes # (0-1.0) k/uL Sodium (137-145) mmol/L Chloride (98-107) mmol/L BUN (7-17) mg/dL Creatinine (0.52-1.04) mg/dL POC Glucose (mg/dL) 154 H 144 H (75-99) mg/dL Calcium (8.4-10.2) mg/dL Phosphorus (2.5-4.5) mg/dL Magnesium (1.6-2.3) mg/dL Hyaline Casts (0-2) /lpf Microbiology - Last 24 Hours (Table) 01/20/19 21:10 Blood Culture Gram Stain - Preliminary Blood Blood Culture - Preliminary Staphylococcus species 01/21/19 10:58 Gram Stain - Preliminary Leg - Right Wound Culture - Preliminary 01/21/19 10:58 Gram Stain - Preliminary Leg - Left Wound Culture - Preliminary 01/20/19 19:47 Urine Culture - Final Urine,Catheterized 01/20/19 21:10 Blood Culture - Final Blood Diabetes panel 01/22/19 Range/Units 05:36 Sodium 126 L (137-145) mmol/L Potassium 5.1 (3.5-5.1) mmol/L Chloride 89 L (98-107) mmol/L Carbon Dioxide 24 (22-30) mmol/L BUN 88 H (7-17) mg/dL Creatinine 1.68 H (0.52-1.04) mg/dL Glucose 99 (74-99) mg/dL Calcium 8.1 L (8.4-10.2) mg/dL Calcium panel 01/22/19 Range/Units 05:36 Calcium 8.1 L (8.4-10.2) mg/dL Phosphorus 5.4 H (2.5-4.5) mg/dL Pituitary panel 01/22/19 Range/Units 05:36 Sodium 126 L (137-145) mmol/L Potassium 5.1 (3.5-5.1) mmol/L Chloride 89 L (98-107) mmol/L Carbon Dioxide 24 (22-30) mmol/L BUN 88 H (7-17) mg/dL Creatinine 1.68 H (0.52-1.04) mg/dL Glucose 99 (74-99) mg/dL Calcium 8.1 L (8.4-10.2) mg/dL Adrenal panel 01/22/19 Range/Units 05:36 Sodium 126 L (137-145) mmol/L Potassium 5.1 (3.5-5.1) mmol/L Chloride 89 L (98-107) mmol/L Carbon Dioxide 24 (22-30) mmol/L BUN 88 H (7-17) mg/dL Creatinine 1.68 H (0.52-1.04) mg/dL Glucose 99 (74-99) mg/dL Calcium 8.1 L (8.4-10.2) mg/dL
[2019-01-22 16:26] VITALS: PULSE 112; TEMP 98.2
[2019-01-22 17:25] LABS: Glucose,Whole Blood 198 mg/dL (75-99)
[2019-01-22 19:06] VITALS: BP 121/107; RESP 22
--- NOTE | 2019-01-22 20:52 | P.PN ---
Subjective Progress Note Date: 01/22/19 63-year-old woman presents to Hospital from the extended care facility with altered mentation. After some hydration and improvement of her electrolytes and dehydration she seems to be improved. She is aware that she is in the hospital. She is unable to relate to the difficulties of her lower extremities and the etiology. It does appear that she's had a decline of her status quite recently. As noted she has been seen by multiple consultants, I was asked to resume her care since I've seen her in the past. At this time she is by the surgical team and because of her current sepsis and the significant abdominal pathology, that was treated by [facility] the past arrangements are being made for her transfer to that facility. She's had the multiple abdominal surgeries and has now the extensive chronic abdominal wall abnormality is including the fistula that copiously drains enhance the wound drainage system in place on the abdominal wall. She does not seem to be in severe pain and apparently is more comfortable than yesterday. Objective - Vital Signs Vital signs: Vital Signs Temp 98.2 F 01/22/19 16:00 Pulse 112 H 01/22/19 16:00 Resp 22 01/22/19 18:00 BP 121/107 01/22/19 18:00 Pulse Ox 99 01/22/19 15:00 Intake & Output 01/22/19 01/22/19 01/23/19 06:59 18:59 06:59 Intake Total 0758.167 2516.965 100 Output Total 599 740 50 Balance 267.246 8891.965 50 Weight 174.5 kg Intake: IV 1100 1700 100 .9 100 mL/hour 1100 1200 100 Vancomycin 2,500 mg In 500 Sodium Chloride 0.9% 500 ml 500 ml @ 167 mls/hr IVPB DAILY@0600 [facility] Rx#: [id number] Intake, IV Titration 56.035 497.965 Amount Magnesium Sulfate-D5w Pmx 200 1 gm In Dextrose/Water 1 100ml.bag @ 100 mls/hr IVPB Q1H [facility] Rx#: [id number] Meropenem 1 gm In Sodium 100 Chloride 0.9% 100 ml @ 200 mls/hr IVPB Q12H [facility] Rx#:[id number] Norepinephrine 4 mg In 56.035 197.965 Sodium Chloride 0.9% 250 ml @ 0.05 MCG/KG/MIN 31. 539 mls/hr IV .Q8H4M [facility] Rx#:[id number] Oral 1380 0 Output: Urine 599 590 50 Stool 150 Other: Voiding Method Indwelling Catheter Indwelling Catheter - Exam 63 -year-old woman was superobesity, is arousableand minimally interactive HEENT: Anicteric conjunctiva are pink and moist nasal mucosa grossly intact without significant lesions, there is no thrush. Neck: The neck is supple without significant lymphadenopathy or thyromegaly. Lungs: symmetrical air entry with basal crackles Heart: irregular without new murmur Abdomen: obese,Positive bowel sounds soft without palpable organomegaly, has the extensive abdominal wall defectith the wound drainage system in place to collect the drainage from the fistulas. Extremities: The upper extremities have excellent pulses they are symmetric, no significant petechiae or telangiectasia. No splinter hemorrhages were noted. T he lower extremities have evidence of the extensive edema. There is evidence of the multiple weeping areas on the bilateral lower extremities. There is a new skin tear on the left leg at the calf which is somewhat tender. It does not appear to be grossly infected. Neuro: patient is arousable she is oriented to person and knows that she is in hospital. Is a very poor historian at this time. - Labs CBC & Chem 7: 01/22/19 05:36 01/22/19 05:36 Labs: Abnormal Lab Results - Last 24 Hours (Table) 01/21/19 01/22/19 01/22/19 Range/Units 20:47 05:36 05:36 WBC 32.4 H (3.8-10.6) k/uL MCHC 30.1 L (31.0-37.0) g/dL RDW 16.1 H (11.5-15.5) % Plt Count 486 H (150-450) k/uL Neutrophils # 29.5 H (1.3-7.7) k/uL Lymphocytes # 0.7 L (1.0-4.8) k/uL Monocytes # 1.8 H (0-1.0) k/uL Sodium 126 L (137-145) mmol/L Chloride 89 L (98-107) mmol/L BUN 88 H (7-17) mg/dL Creatinine 1.68 H (0.52-1.04) mg/dL POC Glucose (mg/dL) 114 H (75-99) mg/dL Calcium 8.1 L (8.4-10.2) mg/dL Phosphorus 5.4 H (2.5-4.5) mg/dL Magnesium 1.5 L (1.6-2.3) mg/dL 01/22/19 01/22/19 01/22/19 Range/Units 06:54 11:43 12:12 WBC (3.8-10.6) k/uL MCHC (31.0-37.0) g/dL RDW (11.5-15.5) % Plt Count (150-450) k/uL Neutrophils # (1.3-7.7) k/uL Lymphocytes # (1.0-4.8) k/uL Monocytes # (0-1.0) k/uL Sodium (137-145) mmol/L Chloride (98-107) mmol/L BUN (7-17) mg/dL Creatinine (0.52-1.04) mg/dL POC Glucose (mg/dL) 115 H 154 H 144 H (75-99) mg/dL Calcium (8.4-10.2) mg/dL Phosphorus (2.5-4.5) mg/dL Magnesium (1.6-2.3) mg/dL 01/22/19 Range/Units 17:03 WBC (3.8-10.6) k/uL MCHC (31.0-37.0) g/dL RDW (11.5-15.5) % Plt Count (150-450) k/uL Neutrophils # (1.3-7.7) k/uL Lymphocytes # (1.0-4.8) k/uL Monocytes # (0-1.0) k/uL Sodium (137-145) mmol/L Chloride (98-107) mmol/L BUN (7-17) mg/dL Creatinine (0.52-1.04) mg/dL POC Glucose (mg/dL) 198 H (75-99) mg/dL Calcium (8.4-10.2) mg/dL Phosphorus (2.5-4.5) mg/dL Magnesium (1.6-2.3) mg/dL Microbiology - Last 24 Hours (Table) 01/21/19 10:58 Gram Stain - Preliminary Leg - Left Wound Culture - Preliminary Gram Neg Bacilli 01/20/19 21:10 Blood Culture Gram Stain - Preliminary Blood Blood Culture - Preliminary Staphylococcus species 01/21/19 10:58 Gram Stain - Preliminary Leg - Right Wound Culture - Preliminary 01/20/19 19:47 Urine Culture - Final Urine,Catheterized 01/20/19 21:10 Blood Culture - Final Blood Assessment and Plan (1) Morbid obesity Current Visit: Yes Status: Acute Code(s): E66.01 - MORBID (SEVERE) OBESITY DUE TO EXCESS CALORIES SNOMED Code(s): 624683883 (2) Sepsis Current Visit: No Status: Acute Code(s): A41.9 - SEPSIS, UNSPECIFIED ORGANISM SNOMED Code(s): 26771294 (3) Colocutaneous fistula Current Visit: No Status: Acute Code(s): K63.2 - FISTULA OF INTESTINE SNOMED Code(s): 897787502 (4) Skin tear of left lower leg without complication Narrative/Plan: 63-year-old woman who has an extensive past medical history regarding her obesity, and multiple abdominal illnesses with the resultant fistulous with copious drainage that are managed by the wound drainage system on the abdominal wall. The patient presents from the [facility] care facility with altered mental status which persists but apparently is improved from her original presentation. She is not obtunded and is able to relate that she is in hospital. She remains ill on a low dose of vasopressor therapy despite fluid resuscitation and care by multiple teams including nephrology, pulmonary critical care, and surgery. Given the complexity of her prior abdominal surgery she is being transferred to the tertiary care center at [facility] for further surgical evaluation. Does appear to have sepsis possibly from the urinary system however cannot rule out an intra-abdominal focus at this point in time.antibiotic therapy with Merre m and vancomycin are being utilized at this time based on the prior cultures. To the skin tear of the left leg hydrogel dressing has been requested to be applied before her transfer. Culture data can be referred to the tertiary center once available. Current Visit: Yes Status: Acute Code(s): S81.812A - LACERATION WITHOUT FOREIGN BODY, LEFT LOWER LEG, INIT ENCNTR SNOMED Code(s): 220888748
--- NOTE | 2019-01-22 21:08 | CONS ---
CONSULTATION Jane Hall is a 63-year-old lady who is a patient of Dr. Powell. She has been transferred from [facility], where her problems included some ulcers on her feet, and she was brought in mainly because of what seems to be an altered mentation type situation. She is known to have atrial fibrillation which is chronic and takes Eliquis 5 mg b.i.d. She was brought in from [facility]care facility mainly for mental status changes with some hallucinations. After arrival she was in atrial fibrillation. Rate was slightly faster. There were also some ulcers on her foot. I was asked to see her mainly because of atrial fibrillation. She is not a very good historian, does not give me a meaningful history but appears not to be in any distress. She is not having any chest pain or shortness of breath. PAST MEDICAL HISTORY: Remarkable for the chronic atrial fibrillation, CAD, details unavailable, hypertension, hyperlipidemia, obstructive sleep apnea syndrome; wears a BiPAP; hypothyroidism and hyperlipidemia. Past medical history includes type 2 diabetes, obesity, hypertension, hyperlipidemia, atrial fibrillation, chronic. There is no evidence of any prior documented myocardial infarction or CVA. This patient underwent some abdominal surgery and there is still an abscess in the abdominal wall that is still evident at this time. She also probably has an enterocutaneous fistula at the ileostomy site. She has also some incontinence. MEDICATIONS: Include: 1. Apixaban 5 mg b.i.d. 2. Midodrine 10 mg t.i.d. 3. Metoprolol 100 mg b.i.d. for rate control. 4. Zofran. 5. Bicarb tablets. 6. Aldactone 25 mg b.i.d. 7. Gabapentin. 8. Insulin. 9. Metolazone. ALLERGIES: NONE. PHYSICAL EXAMINATION: The blood pressure is 110/70, pulse rate about 120, irregular. HEENT unremarkable. Fundus was not examined by me. Neck is supple. There is no JVD. I do not hear a carotid bruit. Heart exam reveals S1, S2 with tachycardia, short systolic murmur, irregular rhythm. Lungs reveal bilateral air entry. Abdomen exam was deferred. Lower extremities reveal dependent edema and also evidence of some ulcers. IMPRESSION: 1. Chronic atrial fibrillation with increased rate in the setting of altered mentation and possible sepsis. 2. Hypertension. 3. Type 2 diabetes. 4. Abdominal wound, poorly healing, with possible enterocutaneous fistula. 5. Hypothyroidism. RECOMMENDATIONS: From a cardiac standpoint at this time I do not believe we need to place her on a Cardizem drip. We can continue the oral medications if she is able to take them, including metoprolol tartrate, which I am reducing to 50 mg b.i.d. She is on a small dose of Levophed to support her blood pressure. Will therefore avoid any Cardizem drip. We will try beta blockers orally to see if it controls. We will also get an echocardiogram to assess LV function and thyroid function tests. This patient has multiple comorbid conditions and her prognosis remains guarded. Possibility of sepsis is being entertained. Blood cultures are also being obtained. I will continue to follow her from an atrial fibrillation standpoint. Will check echocardiogram when performed. Thank you very much for the consult. JUNI / CHAYITO: [id number] /
--- NOTE | 2019-01-22 22:35 | P.PN ---
Subjective Progress Note Date: 01/22/19 Principal diagnosis: Acute sepsis This is a 63-year-old female patient of Dr. Powell who resides at [facility] for the past year and a half, wheelchair-bound. Patient has history of treatment at [facility] with Dr. Yee. She had a strangulated ventral hernia and underwent exploratory laparotomy and ileostomy with right hemicolectomy 12/19/2016 with ischemic bowel found. She had a wound VAC placed and subsequently a secondary closure on 12/12/2016. She was diagnosed with a Staphylococcus epidermidis bacteremia possibly related to a PICC line and underwent IV antibiotics with daptomycin by subsequent thrombosis the left arm/axillary. [facility] with TPN and IV antibiotics and was subsequently discharged to [facility]. 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 Patient was hospitalized from March 06 through March 09 for hepatic abscess and underwent successful CT-guided drainage catheter insertion in the hepatic abscess with return of 400 mL of purulent material. Dr. Sky was recommended transfer to surgery at [facility] for hepatology surgeon consult and may need actual surgical debridement of her liver for this extensive disease process. At [facility], liver abscess was drained to accordion drain and patient was continued on meropenem. She had a PICC line placed and patient was discharged back to [facility] on Invanz 1 g daily. At the [facility], altered mental status and she was hospitalized back in February [address] at [facility] CT of the brain showed mild atrophy and otherwise negative. Patient was admitted to the selective care unit and neurology consult requested. Abdomen brain showed no recent infarct. There was focal posterior left frontal subcortical edema suggestive of subacute infarct. No enhancement was seen. There was mild to minimal chronic small vessel changes. MRI of the cervical spine was suboptimal. There was scoliotic curvature of the thoracic spine with degenerative changes involving C3 and C4 and C5-C6. EEG of the brain was within normal limits. CAT scan of the abdomen and pelvis was repeated and the patient showed complete interval resolution of the right posterior perihepatic fluid/abscess. The patient was seen by Dr. Ma. The patient was seen by Dr. Pope. Following that the patient was [place] back [place] [facility] [place] He was seen in follow-up CAT scan of the abdomen and pelvis that was done on 12/14/2018 that showed anterior abdominal wall ventral hernia with small bowel loops without evidence of any obstruction. Sinus tach and possible enterocutaneous fistula was again seen. There was clearing of the right-sided pleural effusion. The liver and the spleen appeared to be within normal limits. The patient had a cholecystectomy clips. On 2018 the patient came into the emergency department. She [place] [facility] [place] Patient reported hallucination and she was visual hallucinations. The patient had difficulty in understanding where she was. She was not able to identify the president. She didn't know where she was. She wasn't able to tell the date and the month. White cell count was 28.3. Her hemoglobin was at 13.2. Her urinalysis was abnormal and the patient has extensive number of white cell counts and the patient has a permanent Askew catheter in place. The sodium level was 123 with a potassium level of 6.0 and the and was 100 and it crea tinine was 1.96. She also had a lactic acid level that peaked at 3.4. The pressure was also low. At that point, the patient got transferred to the intensive care units. It was noted that at one point her blood pressure dropped to 68/31 and 78/54. She was given a total of 6 L of IV fluids. She was given blood culture and urine culture. Currently she is on room air oxygen. She is not requiring any pressors. Her blood pressure is normalized. White cell count is improving. Creatinine is also on the decline. She was given a dose of Rocephin IV. Her cardiac rhythm is sinus. He is on demeclocycline which I'm assuming this was given to her for chronic hyponatremia. She is also on oral Lasix at the [facility]. Long-term anticoagulation with Eliquis as the patient has previous history of DVT and chronic atrial fibrillation. Her current rhythm is sinus. She still has a fistula in the abdominal wall which is a very large fistula is functional. She has chronic stage II 1 her coccyx. She has chronic ulceration lower extremities bilaterally and she has edema and symptoms fluid weeping from the skin surface. Patient was reevaluated today on 12/25/2018, remains in the intensive care unit, remains on empiric antibiotics for for presumptive sepsis, and her blood cultures showed a positive preliminary report. Patient has very complicated radical history as noted above, she remains on norepinephrine at 7 mcg/m, remains on IV fluid at 100 mL per hour. Urine output is marginal. Continues to have leukocytosis with WBC count of 32.4, hemoglobin is 12.8. Sodium remains low at 126, BUN is 88 creatinine is 1.68, patient received significant amount of fluid boluses upon presentation. Patient remains confused, has no idea how she ended up in the hospital, and she is not in any form of respiratory distress. Blood pressure remains marginal. Remains on Merrem and vancomycin Objective - Vital Signs Vital signs: Vital Signs Temp 98.2 F 01/22/19 08:00 Pulse 133 H 01/22/19 10:00 Resp 18 01/22/19 10:00 BP 104/49 01/22/19 10:00 Pulse Ox 97 01/22/19 07:00 Intake & Output 01/21/19 01/22/19 01/22/19 18:59 06:59 18:59 Intake Total 900 0447.813 2016.463 Output Total 666 599 325 Balance 234 367.722 5803.463 Weight 165.561 kg 174.5 kg Intake: IV 400 1100 900 .9 100 mL/hour 400 1100 400 Vancomycin 2,500 mg In 500 Sodium Chloride 0.9% 500 ml 500 ml @ 167 mls/hr IVPB DAILY@0600 [facility] Rx#: [id number] Intake, IV Titration 500 56.035 236.463 Amount Magnesium Sulfate-D5w Pmx 100 1 gm In Dextrose/Water 1 100ml.bag @ 100 mls/hr IVPB Q1H [facility] Rx#: [id number] Norepinephrine 4 mg In 56.035 136.463 Sodium Chloride 0.9% 250 ml @ 0.05 MCG/KG/MIN 31. 539 mls/hr IV .Q8H4M [facility] Rx#:[id number] Vancomycin 2,500 mg In 500 Sodium Chloride 0.9% 500 ml 500 ml @ 167 mls/hr IVPB DAILY@0600 [facility] Rx#: [id number] Oral 440 Output: Urine 666 599 175 Stool 150 Other: Voiding Method Indwelling Catheter Indwelling Catheter Indwelling Catheter - Exam Physical Exam: Revealed a 63-year-old female, obese, in no form of respiratory distress Head: Atraumatic, normocephalic. HEENT:[Neck is supple.] [No neck masses.] [No thyromegaly.] [No JVD.] PERRLA, EOMI, no icterus. Chest: [Decreased breath sounds bilaterally, no rhonchi no wheezes. No chest wall tenderness.] Cardiac Exam: [Normal S1 and S2, no S3 gallop, no murmur.] Abdomen: [Obese, large open area noted on the left side of the abdomen connected with her ostomy, and draining into a large ostomy bag. No rebound, no guarding, positive bowel sounds Extremities: Significant edema with discoloration from the knees down there is also slight redness and oozing in both lower extremities bilaterally. Neurological Exam: Oriented only to person, confused. No focal neurological deficit otherwise. Skin: Good skin turgor, no rashes except rashes noted in the lower extremities, abdominal wall fistula is noted, and supposedly she has a sacral decubitus ulcer which I couldn't visualize. Lymphatics: No lymphadenopathy. - Labs CBC & Chem 7: 01/22/19 05:36 01/22/19 05:36 Labs: Abnormal Lab Results - Last 24 Hours (Table) 01/20/19 01/21/19 01/21/19 Range/Units 19:47 16:58 20:47 WBC (3.8-10.6) k/uL MCHC (31.0-37.0) g/dL RDW (11.5-15.5) % Plt Count (150-450) k/uL Neutrophils # (1.3-7.7) k/uL Lymphocytes # (1.0-4.8) k/uL Monocytes # (0-1.0) k/uL Sodium (137-145) mmol/L Chloride (98-107) mmol/L BUN (7-17) mg/dL Creatinine (0.52-1.04) mg/dL POC Glucose (mg/dL) 120 H 114 H (75-99) mg/dL Calcium (8.4-10.2) mg/dL Phosphorus (2.5-4.5) mg/dL Magnesium (1.6-2.3) mg/dL Hyaline Casts 12 H (0-2) /lpf 01/22/19 01/22/19 01/22/19 Range/Units 05:36 05:36 06:54 WBC 32.4 H (3.8-10.6) k/uL MCHC 30.1 L (31.0-37.0) g/dL RDW 16.1 H (11.5-15.5) % Plt Count 486 H (150-450) k/uL Neutrophils # 29.5 H (1.3-7.7) k/uL Lymphocytes # 0.7 L (1.0-4.8) k/uL Monocytes # 1.8 H (0-1.0) k/uL Sodium 126 L (137-145) mmol/L Chloride 89 L (98-107) mmol/L BUN 88 H (7-17) mg/dL Creatinine 1.68 H (0.52-1.04) mg/dL POC Glucose (mg/dL) 115 H (75-99) mg/dL Calcium 8.1 L (8.4-10.2) mg/dL Phosphorus 5.4 H (2.5-4.5) mg/dL Magnesium 1.5 L (1.6-2.3) mg/dL Hyaline Casts (0-2) /lpf 01/22/19 01/22/19 Range/Units 11:43 12:12 WBC (3.8-10.6) k/uL MCHC (31.0-37.0) g/dL RDW (11.5-15.5) % Plt Count (150-450) k/uL Neutrophils # (1.3-7.7) k/uL Lymphocytes # (1.0-4.8) k/uL Monocytes # (0-1.0) k/uL Sodium (137-145) mmol/L Chloride (98-107) mmol/L BUN (7-17) mg/dL Creatinine (0.52-1.04) mg/dL POC Glucose (mg/dL) 154 H 144 H (75-99) mg/dL Calcium (8.4-10.2) mg/dL Phosphorus (2.5-4.5) mg/dL Magnesium (1.6-2.3) mg/dL Hyaline Casts (0-2) /lpf Microbiology - Last 24 Hours (Table) 01/20/19 21:10 Blood Culture Gram Stain - Preliminary Blood Blood Culture - Preliminary Staphylococcus species 01/21/19 10:58 Gram Stain - Preliminary Leg - Right Wound Culture - Preliminary 01/21/19 10:58 Gram Stain - Preliminary Leg - Left Wound Culture - Preliminary 01/20/19 19:47 Urine Culture - Final Urine,Catheterized 01/20/19 21:10 Blood Culture - Final Blood Assessment and Plan Assessment: Impression: 1 acute sepsis and septic shock with positive blood cultures, exact source of the infection is yet to be determined. 2 altered mental status with hypotension and leukocytosis and acute kidney injury, could be related to sepsis and metabolic encephalopathy. 3 acute kidney injury 4 large enterocutaneous fistula noted in the abdomen, chronic, but will arrange for surgical evaluation. 5 chronic hyponatremia 6 recurrent urinary tract infections related to gram-negative bacteria 7 morbid obesity 8 stage II sacral decubitus ulceration 9 type 2 diabetes 10 history of depression 11 chronic lower extremities edema and superficial ulcerations, possible another site of potential infection. 12 acute leukocytosis secondary to sepsis 13 paroxysmal atrial fibrillation. Recommendation: Continue empiric antibiotics, patient is presently on Merrem, vancomycin, infectious disease is seeing the patient on consultation, continue norepinephrine, may have to place a central line in this patient if she remains hypotensive. Continue to monitor closely in the ICU, cultures are pending, however her blood cultures may be positive for gram-positive cocci in clusters, and the patient is now on vancomycin. Continue the meclocycline 4 chronic hyponatremia continue nystatin to groin and axillary areas. Prognosis is definitely poor and guarded, will follow. Critical care time is 35 minutes
--- NOTE | 2019-01-23 09:39 | ECHOF ---
Referral Reason:LV Function MEASUREMENTS -------- HEIGHT: 175.3 cm WEIGHT: 174.2 kg BP: 74/53 RVIDd: 2.8 cm (< 3.3) IVSd: 1.4 cm (0.6 - 1.1) LVIDd: 3.8 cm (3.9 - 5.3) LVPWd: 1.4 cm (0.6 - 1.1) IVSs: 1.7 cm LVIDs: 2.9 cm LVPWs: 1.7 cm LA Diam: 3.8 cm (2.7 - 3.8) LAESV Index (A-L): 20.29 ml/m Ao Diam: 3.0 cm (2.0 - 3.7) AV Cusp: 1.8 cm (1.5 - 2.6) MV EXCURSION: 21.518 mm (> 18.000) MV EF SLOPE: 65 mm/s (70 - 150) EPSS: 0.7 cm RAP: 5.00 mmHg RVSP: 30.35 mmHg FINDINGS -------- Atrial fibrillation. This was a technically difficult study with suboptimal views. The left ventricular size is normal. There is moderate concentric left ventricular hypertrophy. O verall left ventricular systolic function is low-normal with, an EF between 50 - 55 %. The right ventricle is normal in size. Normal LA size by volume 22+/-6 ml/m2. The right atrium is normal in size. 3 ml of Lumason was utilized for enhancement of images. There is mild aortic valve sclerosis. The mitral valve leaflets are mildly thickened. Mild mitral annular calcification present. Mild m itral regurgitation is present. Mild tricuspid regurgitation present. Right ventricular systolic pressure is normal at < 35 mmHg. Trace/mild (physiologic) pulmonic regurgitation. The aortic root size is normal. Normal inferior vena cava with normal inspiratory collapse consistent with estimated right atrial pre ssure of 5 mmHg. The inferior vena cava is mildly dilated. There is no pericardial effusion. CONCLUSIONS -------- 1. Atrial fibrillation. 2. This was a technically difficult study with suboptimal views. 3. The left ventricular size is normal. 4. There is moderate concentric left ventricular hypertrophy. 5. The right ventricle is normal in size. 6. Normal LA size by volume 22+/-6 ml/m2. 7. The right atrium is normal in size. 8. 3 ml of Lumason was utilized for enhancement of images. 9. There is mild aortic valve sclerosis. 10. The mitral valve leaflets are mildly thickened. 11. Mild mitral annular calcification present. 12. Mild mitral regurgitation is present. 13. Mild tricuspid regurgitation present. 14. Right ventricular systolic pressure is normal at < 35 mmHg. 15. Trace/mild (physiologic) pulmonic regurgitation. 16. The aortic root size is normal. 17. Normal inferior vena cava with normal inspiratory collapse consistent with estimated right atrial pressure of 5 mmHg. 18. The inferior vena cava is mildly dilated. 19. There is no pericardial effusion. GETTERER: Petra Sanon RDCS
--- NOTE | 2019-01-23 15:50 | P.DS ---
Providers Date of admission: 01/20/19 20:27 Expected date of discharge: 01/22/19 Attending physician: Angela Powell Consults: 01/21/19 03:55 Consult Physician Routine Consulting Provider: Evette King Consult Reason/Comments: icu managment Do you want consulting provider notified?: Already Contacted 01/21/19 08:54 Consult Physician Routine Consulting Provider: Ivet Grossman Consult Reason/Comments: chronic kidney disease, hyponatermia Do you want consulting provider notified?: Yes 01/21/19 08:55 Consult Physician Routine Consulting Provider: Eduin Sky Consult Reason/Comments: UTI, wound care Do you want consulting provider notified?: Yes 01/22/19 09:41 Consult Physician Routine Consulting Provider: Tony Pope Consult Reason/Comments: managment of internal fistula/ostomy Do you want consulting provider notified?: Yes 01/22/19 11:11 Consult Physician Routine Consulting Provider: Tosha Gray Consult Reason/Comments: Afib rvr, hypotension Do you want consulting provider notified?: Yes Primary care physician: Angela Powell Hospital Course: 63-year-old morbidly obese female one of Dr. Powell's patient from [facility] on [facility] who has been there for the last 2 years who has quite bed complication from perforated diverticuli with the strangulated ventral hernia post exploratory laparotomy and ileostomy with right-sided hemicolectomy in December 2016 with ischemic bowel found at the time who had wound VAC and still have an open area connected with her ostomy connected to a draining system go to ostomy bag. Also patient has been treated for multiple decubsacral and buttocks area along with chronic cellulitis of the lower extremity with a chronic edema. She is known to have chronic history of hyponatremia has been on demeclocycline for long time. Patient has morbid obesity her mobility is limited to bedrest 99% out of the time hardly move at all. Has been seen by one career services assistant. Patient presented to the emergency department at [facility] after she found to have an episode of delusion hallucination and altered mental status for founding a painter airbrush painting on the wall in her room and has been talking to mary skelton inside her room. Her nurse send her for evaluation of urine was very positive and white blood cell was in the high 20,000 patient was diagnosed with septic with moderately elevated lactic acid was started on hydration IV antibiotics consult infectious disease and admit patient to the hospital for the above problem. Shortly after arriving to the floor patient blood pressure declined quite bed with elevated lactic acid still not doing well with her fluid resuscitation ended up being transferred to the intensive care unit. 01/22: Patient remains in the intensive care unit and has required norepinephrine for hypotension. White count remains elevated at 32.4 with hemoglobin 12.8. Sodium is low at 126, BUN 88 and creatinine 1.68. Patient has required fluid boluses for blood pressure. She has been confused. No respiratory distress is noted. She is currently on meropenem and vancomycin. Patient has been seen by multiple consultants including nephrology, infectious disease, grass cutter. General surgery has advised the patient should be sent to [facility] for tertiary care of large abdominal wound. The case assistant made all arrangements and patient will be transferred once arrangements are completed. Discharge diagnoses: 1 sepsis: Most likely from UTI and from her decub 2 severe acute UTI causing sepsis 3 decub ulcer 4 severe hyponatremia: Most likely SIADH and aggravated by the infection 5 acute kidney injury with chronic kidney disease II 6 multiple mouth ulcer: Most likely aphthous 7 large area of ostomy and open wound in the abdominal region has been using a drainage system on it along with ostomy 8 type 2 diabetes 9 paroxysmal atrial fibrillation 10 chronic hypotension: Has been on midodrine 11 post ileostomy secondary to strangulated ventral hernia with ischemic bowel 12 hypothyroidism 13. Recurrent depression 14 anasarca 15 chronic pain syndrome 16 chronic hyponatremia Discharge plan: Transfer to [facility] Impression and plan of care have been directed as dictated by the signing physician. Ping Jaffe nurse practitioner acting as scribe for signing physician. Patient Condition at Discharge: Stable Plan - Discharge Summary New Discharge Prescriptions: No Action Levothyroxine Sodium [Synthroid] 75 mcg PO DAILY Atorvastatin [Lipitor] 10 mg PO HS Midodrine HCl [ProAmatine] 10 mg PO AC-TID Apixaban [Eliquis] 5 mg PO BID Lidocaine 2% Gel [Xylocaine Jelly 2%] 1 applic TOPICAL DAILY PRN PRN Reason: KNEE PAIN Metoprolol Tartrate [Lopressor] 100 mg PO BID Triamcinolone 0.1% Cream [Kenalog 0.1% Cream] 1 applic TOPICAL HS Ondansetron HCl [Zofran] 8 mg PO Q8H PRN PRN Reason: Nausea INSULIN ASPART (NovoLOG) [NovoLOG (formulary)] See Protocol SQ ACHS Ranitidine HCl 150 mg PO BID Dicyclomine [Bentyl] 10 mg PO TID Sodium Bicarbonate Tab 1,300 mg PO TID Demeclocycline HCl 300 mg PO Q12H busPIRone HCL 15 mg PO BID Spironolactone [Aldactone] 25 mg PO BID Acetaminophen-Codeine 300-30mg [Tylenol w/codeine #3] 1 tab PO Q6H PRN PRN Reason: Pain Metolazone [Zaroxolyn] 2.5 mg PO MO Lidocaine Cream 5% 1 applic TOPICAL TID Clotrimazole/Betamethasone Dip [Lotrisone Cream] 1 applic TOPICAL BID Escitalopram Oxalate [Lexapro] 30 mg PO DAILY Potassium Chloride [Klor-Con 10] 10 meq PO BID Gabapentin 600 mg PO BID Furosemide [Lasix] 40 mg PO BID DULoxetine HCL [Cymbalta] 30 mg PO BID Insulin Glargine,Hum.rec.anlog [Basaglar Kwikpen U-100] 25 unit SQ AC-SUPPER Discharge Medication List Atorvastatin [Lipitor] 10 mg PO HS 09/16/17 [History] Levothyroxine Sodium [Synthroid] 75 mcg PO DAILY 09/16/17 [History] Midodrine HCl [ProAmatine] 10 mg PO AC-TID 09/16/17 [History] Apixaban [Eliquis] 5 mg PO BID 03/15/18 [History] Lidocaine 2% Gel [Xylocaine Jelly 2%] 1 applic TOPICAL DAILY PRN 03/15/18 [History] Metoprolol Tartrate [Lopressor] 100 mg PO BID 03/28/18 [History] Demeclocycline HCl 300 mg PO Q12H 12/14/18 [History] Dicyclomine [Bentyl] 10 mg PO TID 12/14/18 [History] INSULIN ASPART (NovoLOG) [NovoLOG (formulary)] See Protocol SQ ACHS 12/14/18 [History] Ondansetron HCl [Zofran] 8 mg PO Q8H PRN 12/14/18 [History] Ranitidine HCl 150 mg PO BID 12/14/18 [History] Sodium Bicarbonate Tab 1,300 mg PO TID 12/14/18 [History] Spironolactone [Aldactone] 25 mg PO BID 12/14/18 [History] Triamcinolone 0.1% Cream [Kenalog 0.1% Cream] 1 applic TOPICAL HS 12/14/18 [History] busPIRone HCL 15 mg PO BID 12/14/18 [History] Acetaminophen-Codeine 300-30mg [Tylenol w/codeine #3] 1 tab PO Q6H PRN 01/20/19 [History] Clotrimazole/Betamethasone Dip [Lotrisone Cream] 1 applic TOPICAL BID 01/20/19 [History] DULoxetine HCL [Cymbalta] 30 mg PO BID 01/20/19 [History] Escitalopram Oxalate [Lexapro] 30 mg PO DAILY 01/20/19 [History] Furosemide [Lasix] 40 mg PO BID 01/20/19 [History] Gabapentin 600 mg PO BID 01/20/19 [History] Insulin Glargine,Hum.rec.anlog [Basaglar Kwikpen U-100] 25 unit SQ AC-SUPPER 01/20/19 [History] Lidocaine Cream 5% 1 applic TOPICAL TID 01/20/19 [History] Metolazone [Zaroxolyn] 2.5 mg PO MO 01/20/19 [History] Potassium Chloride [Klor-Con 10] 10 meq PO BID 01/20/19 [History] Follow up Appointment(s)/Referral(s): Angela Powell MD [Primary Care Provider] - 1-2 days Discharge Disposition: OTHER INSTITUTION NOT DEFINED
--- NOTE | 2019-01-24 11:21 | CDI ---
Documentation Clarification Form Date: 01/24/2019 From: Kamilla Derek Leonor Salma, [employer] Hours-8:30 am & 5 pm M-Betty Admit Date: 01/20/2019 8:27:00 PM Patient Name: Jane Hall Visit Number: [id number] Discharge Date: 01/22/2019 6:00:00 PM ATTENTION: The Clinical Documentation Specialists (CDI) and [facility] Coding Staff appreciate your assistance in clarifying documentation. Please respond to the clarification below the line at the bottom and electronically sign. The CDI & [facility] Coding staff will review the response and follow-up if needed. Please note: Queries are made part of the Legal Health Record. If you have any questions, please contact the author of this message via ITS. Dr. Angela Powell Chronic CHF is documented in the past medical history found in the ED note, H&P, consults, & PNs. History/Risk Factors: sepsis, septic shock, met encephalopathy, ATN, SIADH, colocutaneous fistula VS/Pulse OX: BNP: 1350 Echocardiogram Results: Left ventricular systolic function is low normal w EF between 50-55%. Chest X Ray: Chronic right pleural changes and cardiomegaly wo acute pulmonary process. Treatment: Lasix 40 mg PO BID then 40 mg PO daily In your professional opinion, can you please clarify the type of chronic CHF if known? Systolic Heart Failure: Diastolic Heart Failure: Systolic & Diastolic Heart Failure: Unable to Determine Other, please specify Chronic diastolic heart failure MTDD
== END 2019-01-22 18:00 | disposition short-term general hospital (02) | DRG 871 ==
LOC: EC 19:13 → 4MS4W 20:27 → 2SICU 01-21 02:00
PROVIDERS: ADMIT Family Medicine; ATTEND Family Medicine
DX: A41.9 Sepsis, unspecified organism (principal); R65.21 Severe sepsis with septic shock; G93.41 Metabolic encephalopathy; N17.0 Acute kidney failure with tubular necrosis; K63.2 Fistula of intestine; E22.2 Syndrome of inappropriate secretion of antidiuretic hormone; E87.2 Acidosis; I13.0 Hypertensive heart and chronic kidney disease with heart failure and stage 1 through stage 4 chronic kidney disease, or unspecified chronic kidney disease; F33.9 Major depressive disorder, recurrent, unspecified; N39.0 Urinary tract infection, site not specified; Z68.43 Body mass index [BMI] 50.0-59.9, adult; I50.32 Chronic diastolic (congestive) heart failure; L03.319 Cellulitis of trunk, unspecified; E66.01 Morbid (severe) obesity due to excess calories; L89.152 Pressure ulcer of sacral region, stage 2; E11.40 Type 2 diabetes mellitus with diabetic neuropathy, unspecified; Z66 Do not resuscitate; I95.89 Other hypotension; E11.22 Type 2 diabetes mellitus with diabetic chronic kidney disease; I48.0 Paroxysmal atrial fibrillation; E83.42 Hypomagnesemia; E83.39 Other disorders of phosphorus metabolism; S81.812A Laceration without foreign body, left lower leg, initial encounter; G47.33 Obstructive sleep apnea (adult) (pediatric); N31.9 Neuromuscular dysfunction of bladder, unspecified; I87.2 Venous insufficiency (chronic) (peripheral); E86.0 Dehydration; J44.9 Chronic obstructive pulmonary disease, unspecified; N39.498 Other specified urinary incontinence; N18.2 Chronic kidney disease, stage 2 (mild); E86.1 Hypovolemia; G89.4 Chronic pain syndrome; F41.9 Anxiety disorder, unspecified; K12.0 Recurrent oral aphthae; E89.0 Postprocedural hypothyroidism; E78.5 Hyperlipidemia, unspecified; I25.10 Atherosclerotic heart disease of native coronary artery without angina pectoris; M19.90 Unspecified osteoarthritis, unspecified site; Z79.01 Long term (current) use of anticoagulants; Z79.4 Long term (current) use of insulin; Z79.890 Hormone replacement therapy; Z79.899 Other long term (current) drug therapy; Z86.718 Personal history of other venous thrombosis and embolism; Z90.49 Acquired absence of other specified parts of digestive tract; Z86.14 Personal history of Methicillin resistant Staphylococcus aureus infection; Z99.89 Dependence on other enabling machines and devices; Z87.440 Personal history of urinary (tract) infections; Z71.3 Dietary counseling and surveillance; Z99.3 Dependence on wheelchair; Z93.2 Ileostomy status; Z82.49 Family history of ischemic heart disease and other diseases of the circulatory system; Z81.8 Family history of other mental and behavioral disorders
CPT/HCPCS: 36415; 51702; 71045; 71046; 80048; 80053; 81001; 83605; 83735; 83880; 84100; 84484; 85025; 85610; 85730; 87040; 87070; 87077; 87086; 87186; 87205; 93005; 93306; 96360; 99285